=== PATIENT | male | born 1965 | race Hispanic/Latino ===

== ENCOUNTER → 2020-02-29 13:46 | Outpatient (CLI) | payer SELFPAY ==
[2020-03-01 16:07] LABS: COVID19 Sendout NOT DETECTED (Not Detect)
== END ==
PROVIDERS: Visit Provider Registered Nurse
DX: Z01.812 Encounter for preprocedural laboratory examination (principal)
CPT/HCPCS: 87635

== ENCOUNTER → 2020-02-29 14:04 | Outpatient (CLI) | payer OTHER, SELFPAY ==
[2020-02-29 15:33] LABS: Add Manual Diff / Slide Review NO; Basophils Absolute Auto 100 /uL (0-100); Basophils Percent Auto 1.1 % (0-2); Eosinophils Absolute Auto 100 /uL (0-450); Eosinophils Percent Auto 1.7 % (2-4); Hematocrit 38.9 % (41-53); Hemoglobin 13.4 g/dL (13.5-17.5); Lymphocytes Absolute Auto 900 /uL (1100-4500); Lymphocytes Percent Auto 17.4 % (25-40); Mean Corpuscular HGB Conc 34.3 % (30-36); Mean Corpuscular Hemoglobin 32.8 PG (26-34); Mean Corpuscular Volume 95.4 fL (80-100); Monocytes Absolute Auto 400 /uL (0-900); Monocytes Percent Auto 7.3 % (3-14); Neutrophils Absolute Auto 3900 /uL (1500-7000); Neutrophils Percent Auto 72.5 % (50-75); Platelet Count 171 X10^3/uL (150-400); Red Blood Cell Count 4.07 X10^6/uL (4.5-5.9); Red Cell Distribution Width 13.8 % (11.6-14.8); White Blood Cell Count 5.4 X10^3/uL (4.5-11.0)
[2020-02-29 15:36] LABS: BUN Creatinine Ratio 18.8 (6-22); Blood Urea Nitrogen 16 mg/dL (9-20); Calcium 9.2 mg/dL (8.4-10.2); Carbon Dioxide 29 mmol/L (22-32); Chloride 108 mmol/L (98-107); Estimated Glomerular Filt Rate > 60.0 mL/min (>60); Glucose 129 mg/dL (70-100); HEMOLYSIS < 15 (0-50); Potassium 4.7 mmol/L (3.4-5.1); Sodium 140 mmol/L (137-145)
== END ==
PROVIDERS: Referring Provider Orthopaedic Surgery; Visit Provider Orthopaedic Surgery
DX: Z01.818 Encounter for other preprocedural examination (principal); Z01.812 Encounter for preprocedural laboratory examination
CPT/HCPCS: 36415; 80048; 85025; 87635; 93005

== ENCOUNTER 2020-03-03 06:20 | Day surgery (SDC) | payer OTHER, SELFPAY ==
[2020-02-29 08:53] VITALS: BMI 32.8
[2020-03-03] VITALS (24 sets, daily range): BP systolic 126–206; BP diastolic 62–108; PULSE 74–104; RESP 10–20; TEMP 36.3–36.7; O2SAT 84–99; BMI 32.5
--- NOTE | 2020-03-03 07:16 | P.HP_ITS ---
History of Present Illness History of Present Illness Date Patient Seen: 03/03/20 Time Patient Seen: 07:18 Chief complaint: [id number] Cerv fusion *OPB* Narrative: 54-year-old male with neck pain and radiation into the left arm. Insidious onset 2 months ago. Right-hand dominant. Pain better with the arm overhead. Pain could be over 9/10. No relief with the Medrol Dosepak. He has been getting progressively weaker and dropping objects with the left hand. Pain goes down across the trapezius down the biceps to the thumb and index finger predominantly. Some associated numbness same distribution. He does have a history of lupus. Patient History Medical History Arthritis (Acute) Cardiomyopathy (Acute) Chronic low back pain (Acute) Chronic prostatitis (Acute) COPD (chronic obstructive pulmonary disease) (Acute) Cough (Acute) Discoid lupus (Acute) Fibromyalgia (Acute) Former smoker (Acute) GERD (gastroesophageal reflux disease) (Acute) HTN (hypertension) (Acute) Labral tear of left hip joint (Acute) Lumbar disc disease (Acute) Lung cancer (Acute 12/2016) Neuropathy (Acute) Osteoarthropathy (Acute) PAF (paroxysmal atrial fibrillation) (Acute 2008) Pulmonary emphysema (Acute) Retinopathy (Acute) RLS (restless legs syndrome) (Acute) Rosacea (Acute) Spinal stenosis (Acute) Subacute cutaneous lupus erythematosus (Acute) Surgical History History of ankle surgery (Acute 1994) History of bilateral carpal tunnel release (Acute 2017) History of colonoscopy (Acute) History of lobectomy of lung (Acute 12/2016) History of lumbar fusion (Acute 2008) History of surgery (Acute 1985) History of surgery (Acute 2002) History of surgery (Acute 2016) Hx of elbow surgery (Acute 2009) Hx of hand surgery (Acute) Hx of laminectomy (Acute 1981) Hx of LASIK (Acute 2000) Family & Social History Social History: household members spouse Prior Living Arrangements House Safety & Behavioral: Feels Safe in Current Yes Environment Been Physically Hurt or No Threatened By a Person Suicidal Ideation Description None Suicide Plan Description No Plan Tobacco & Substance use: Tobacco type cigarettes Smoking Status Former smoker alcohol intake current alcohol intake frequency a few times a week Substance Use Type does not use Meds Home Medications and Allergies Home Medications Medication Instructions Recorded Confirmed Type azathioprine 150 mg PO DAILY 02/29/20 03/03/20 History carvedilol 25 mg PO BID 02/29/20 03/03/20 History fluticasone propion-salmeterol 1 inh INHALATION BID 02/29/20 03/03/20 History [Advair Diskus] hydrocodone-acetaminophen 1 tab PO Q4-6H PRN MDD 3 tabs daily 02/29/20 03/03/20 History hydroxychloroquine 200 mg PO BID 02/29/20 03/03/20 History lisinopril 5 mg PO BID 02/29/20 03/03/20 History multivitamin 1 cap PO DAILY 02/29/20 03/03/20 History omega 3-crh-ten-fish oil [Fish Oil] 1 cap PO DAILY 02/29/20 03/03/20 History omeprazole 40 mg PO DAILY 02/29/20 03/03/20 History prednisone 5 mg PO DAILY 02/29/20 03/03/20 History tiotropium bromide [Spiriva 1 puff INHALATION BID 02/29/20 03/03/20 History Respimat] furosemide 10 mg PO QAM 03/03/20 03/03/20 History Allergies Allergy/AdvReac Type Severity Reaction Status Date / Time codeine AdvReac Severe Nausea Verified 03/03/20 06:51 gabapentin AdvReac Severe Double Verified 03/03/20 06:51 vision Review of Systems Constitutional Constitutional: Denies chills and Denies fever(s) Respiratory Respiratory: Denies cough Exam Vital Signs (past 8 hours): - 03/03/20 06:55 Temperature 97.7 F Pulse Rate 77 Respiratory Rate 15 Blood Pressure 126/73 Pulse Oximetry 95 Oxygen Delivery Method Room Air Const Orientation: alert and oriented x3 Resp Auscultation: clear to auscultation bilaterally Cardio Rate: regular rate Rhythm: regular rhythm Back/Spine/Pelvis Other: Tender left cervical paraspinals. 5/5 motor both upper extremities except for 4/5 left biceps, wrist extensor, triceps, intrinsics, wrist. Decr eased sensation down the left biceps to the thumb. Positive [place] on the left Objective Imaging Cervical MRI: My impression: From 02/09/2020. C3-4 left paracentral disc herniation mild to moderate central stenosis, moderate right, mild left foraminal stenosis. C4-5 mild central, moderate bilateral foraminal stenosis. C5-6 large left paracentral herniation with cord compression and moderate left foraminal narrowing. C6-7 and C7-T1 are open. Assessment & Plan Assessment & Plan narrative: Cervical disc herniation with myelopathy He has progressive myelopathy with 2 very large disc herniations which are causing cord compression. Due to the progressive nature of his neurologic compromise, we are going to go ahead with surgery. This is a C3-4 and then C5-6 anterior diskectomy an artificial disc replacements. Risks and benefits again have been discussed. All questions have been answered. Consent signed today. COVID-19 COVID-19 status: Negative Result date/Date tested (Pos, Neg/Pending): 02/29/20
[2020-03-03] MEDS: LACTATED RINGERS 1,000 ML 42 ML IV (07:37)
--- NOTE | 2020-03-03 07:38 | P.OP_ITS ---
Operative Date/Time/Diagnoses Date of procedure: 03/03/20 Time of procedure: 09:50 Pre-op diagnosis: Cervical disc herniation with myelopathy Post-op diagnosis: same Procedure & Clinicians Procedure: C3-4, C5-6 anterior cervical diskectomy an artificial disc replacements Use of microscope Same procedure as scheduled: Yes Indications: [age] year old male with intractable pain from stenosis. They had failed conservative management and requested operative intervention. Risks and benefits of surgery were discussed and appropriate consents were obtained. Surgeon: Raymundo Brizuela Panel Monitor: Xochitl Cagle Anesthesia Type: General Operative Notes Closure Type: primary Specimen(s): none sent Prosthetic devices, grafts, tissues, transplants, or devices: Martha Mobi-C Estimated Blood Loss (mL): 5 Procedure in detail: Patient was brought to the operating room and intubated on the table. A time-out was performed. Preoperative antibiotics were given. The neck was prepped and draped in the standard sterile fashion. Using a skin fold, we made a 3 cm oblique incision on the left side. We used Bovie to go through the platysma and then did a standard anterolateral blunt dissection down to the precervical fascia. Fascia was nicked and elevated up. A marker was placed and x-ray was taken for localization. We then subperiosteally elevated up the longus colli muscles. Self-retaining retractors were placed. [place] pins were placed under x-ray guidance to be parallel to the endplates. We then brought in the microscope. A scalpel used to perform an annulotomy. We then used a combination of pituitaries and curettes and Kerrison to perform a complete anterior diskectomy at C3-4. We took down the PLL and used Kerrison to remove any posterior disc material and osteophytes. At the end we could from the nerve hook cephalad caudally and out the foramen and everything was opened. We distracted open with the parallel senior qa automation engineer. We then used the horseshoes for sizing. We then used the trials. We then inserted a 15 x 15 x 5 mm size Mobi-C artificial disc replacement under fluoroscopic guidance for positioning. The traction was released and x-ray was checked again. The retractors were removed down to C5-6. We performed a complete diskectomy using curettes, pituitaries, Kerrisons. We took down the PLL. Removed the posterior osteophytes and then ran the nerve hook until we made sure everything was open. We distracted open with a parallel distractor. We trialed and then inserted 17 x 15 x 5 Mobi-C artificial disc replacement at this level using fluoroscopy for positioning. The traction was released in x-rays were checked again. A The self-retaining retractors and [place] pins were removed and final x-rays taken. The wound was irrigated. There was no bleeding. The carotid was beating nicely. The platysma was closed. The superficial was closed. The skin was closed. A sterile dressing was placed. They were then extubated and brought to recovery room with no complications. Complications: none Post-operative Condition: stable Disposition: PACU Plan for aftercare: Overnight admission. Soft collar for comfort.
[2020-03-03] MEDS: CEFAZOLIN 2 GM/100 ML FROZ.PIGGY IV ×3 (07:45→23:52)
--- NOTE | 2020-03-03 08:16 | SUR.OPER ---
Supine, head on gel donut. Arms padded with gel pads, tucked at sides, towel roll under shoulders. Safety belt at thigh. Legs uncrossed.
[2020-03-03] MEDS: BUPIVACAINE 0.25% W/ EPI 30 ML VIAL INJ (08:22)
[2020-03-03] MEDS: SODIUM CHLORIDE 0.9% 1,000 ML, GENTAMICIN 80 MG IRR (08:22)
[2020-03-03] MEDS: THROMBIN (RECOMBINANT) 5,000 UNIT VIAL 5000 UNIT TOP (08:22)
[2020-03-03] MEDS: fentaNYL 100 MCG/2 ML INJ IV ×6 (09:57→11:06)
[2020-03-03] MEDS: HYDROMORPHONE 2 MG INJ IV ×8 (10:07→11:02)
--- NOTE | 2020-03-03 11:55 | SUR.PHASEI ---
pt co severe discomfort due to lack of ability to urinate post op. stated that this has haped after his last 4 surgeries and he required catheterization until anesthesia wore off. obtained telephone order from anesthesia and pt had relief with clear yellow urine- see I?O for amount
[2020-03-03] MEDS: HYDROMORPHONE 0.5 MG INJ IV ×4 (12:47→23:33)
[2020-03-03] MEDS: KETOROLAC 30 MG/ML VIAL IV ×2 (12:47→19:32)
[2020-03-03] MEDS: LACTATED RINGERS 1,000 ML 125 ML IV ×2 (12:48→20:04)
--- NOTE | 2020-03-03 13:53 | CM.IDA ---
Initial DCP Assessment Note: Patient is a 54 yo male, resident of [facility]. Patient is off the floor today, in the OR for spinal surgery w/Dr Brizuela. PCP: Aparna Fofana Payer: Con/kassandra Reviewed chart, patient plans to DC home post operatively w/assist from family. Further assessment needed after patient returns to the acute care floor and is assessed by therapy team. Following closely. SARIKA Mason Discharge Planning/Care Management CM Discharge Assessment Start: 03/03/20 13:50 Freq: Status: Active Protocol: Document 03/03/20 13:50 TONIO (Rec: 03/03/20 13:53 TONIO [id number]) Discharge Planning Assessment Assigned Land Surveyor SARIKA Medellin DPOA/Assigned Designee Name [place] () Enmanuel (daughter ) Contact Information [place]: [phone] En[place]: [phone] Advance Directives? No History Provided By Patient,Medical Record Prior Living Arrangements House Household Members spouse Type of transporation used prior to Drives own vehicle admit Barriers to Discharge No Discharge Plan Home Transportation Arrangement Family Referrals Initiated None needed
--- NOTE | 2020-03-03 14:25 | PT.IIE ---
Current Diagnoses Disease of spinal cord, unspecified (03/03/20) Other cervical disc displacement, unspecified cervical region (03/03/20) Strain of muscle, fascia and tendon at neck level, subsequent encounter (03/03/20) Surgery Performed Operation Date: 03/03/20 07:45 Actual Procedures p C34 & C56 anterior discectomy & artificial disc replacement - Raymundo Brizuela MD Surgical History (Last Reviewed 03/03/20 @ 07:21 by Raymundo Brizuela MD) History of ankle surgery (Acute 1994) History of bilateral carpal tunnel release (Acute 2017) History of colonoscopy (Acute) History of lobectomy of lung (Acute 12/2016) History of lumbar fusion (Acute 2008) History of surgery (Acute 1985) History of surgery (Acute 2002) History of surgery (Acute 2016) Hx of elbow surgery (Acute 2009) Hx of hand surgery (Acute) Hx of laminectomy (Acute 1981) Hx of LASIK (Acute 2000) Medical History (Last Reviewed 03/03/20 @ 07:21 by Raymundo Brizuela MD) Arthritis (Acute) Cardiomyopathy (Acute) Chronic low back pain (Acute) Chronic prostatitis (Acute) COPD (chronic obstructive pulmonary disease) (Acute) Cough (Acute) Discoid lupus (Acute) Fibromyalgia (Acute) Former smoker (Acute) GERD (gastroesophageal reflux disease) (Acute) HTN (hypertension) (Acute) Labral tear of left hip joint (Acute) Lumbar disc disease (Acute) Lung cancer (Acute 12/2016) Neuropathy (Acute) Osteoarthropathy (Acute) PAF (paroxysmal atrial fibrillation) (Acute 2008) Pulmonary emphysema (Acute) Retinopathy (Acute) RLS (restless legs syndrome) (Acute) Rosacea (Acute) Spinal stenosis (Acute) Subacute cutaneous lupus erythematosus (Acute) Physical Therapy Inpatient Evaluation/Re-Eval M1 PT/OT-IP Prior Functional Status Start: 03/03/20 16:41 Freq: NEEDED Status: Active Protocol: Document 03/03/20 14:25 AB (Rec: 03/03/20 17:01 AB [id number]) Medical Review Prior Functional Status Medical History Reviewed Yes Communication able to make needs known Mobility and Gait pt stated that he is independent with all mobilities and ambulation without AD Social History Household Members spouse Living Arrangements House Number of Floors (Floors) One Floor Number of Stairs To Enter/Railing? 2 steps to enter with L rail Home Environment High Toilet,Walk in Shower, Built-In Shower Seat Home Equipment Front Wheel Walker,Straight Cane,Grab Bars In Shower Additional Social History Comment pt works in sales (appliance) spouse works from home and can assist pt M2 PT-IP Current Condition Start: 03/03/20 16:41 Freq: NEEDED Status: Active Protocol: Document 03/03/20 14:25 AB (Rec: 03/03/20 17:01 [id number]) Physical Therapy Current Condition Current Condition Evaluation Date 03/03/20 Treatment Diagnosis s/p ACDF; difficulty in walking Onset Date 03/03/20 Precautions Cervical Spine Precautions Soft Collar for Comfort,No Heavy Lifting,Log Roll M3 PT-IP Subjective Start: 03/03/20 16:41 Freq: NEEDED Status: Active Protocol: Document 03/03/20 14:25 AB (Rec: 03/03/20 17:01 [id number]) Subjective Physical Therapy Visit Type Type Initial Evaluation Visit Start Time 14:25 Visit Stop Time 15:09 Total Visit Minutes 44 Number of HEALTH AND WELLNESS SALES CONSULTANT Visits 0 Physical Therapy Visit Comments Patient Comments pt agreeable to do PT; nurse stated that pt requesting to use the toilet Therapy Pain Assessment Pain When Pain Assessed At Rest Pain Present Pain Present Pain Reported Location neck Intensity 8 Scale Used Numeric (0 - 10) Pain Management Techniques Modification of Treatment,Re- positioning,Timing of Activity with Medications M4 PT-IP Mobility and Gait Start: 03/03/20 16:41 Freq: NEEDED Status: Active Protocol: Document 03/03/20 14:25 AB (Rec: 03/03/20 17:01 [id number]) PT-Bed Mobility Assessment Rolling Type of Rolling Log Rolling Level of Assist Standby Assistance Supine to Sit Supine to Sit Standby Assistance Sit to Supine Sit to Supine Standby Assistance Scooting Scooting to Edge of Bed Standby Assistance PT-Transfer Assessment Sit to and From Stand Sit to and from Stand Contact Guard Assistance,1 Person Assistance,Use of Upper Extremities Equipment Transfer Assistive Device Gait Belt,Front Wheeled Walker Transfer Ability Level of Assist Contact Guard Assistance,1 Person Assistance Comments Mobility Comments pt sitting on EOB with nurse assisting with use of urinal. PT came in to assist. Pt sat back in bed and c/o lightheadedness and nausea. BP: 175/103. nurse gave pt with nausea medication. educated pt on cervical precautions and log roll bed mobility and completed SBA and cues. pt rested supine in bed. BP checked: 149/92. pt agreed to sit up again. completed supine to sit SBA. pt sat on EOB SBA. completed sit to stand CGA and ambulated towards the mirror CGA. educated pt and spouse regarding soft collar management. spouse was able to assist pt with soft collar. pt c/o lightheadedness and nausea again. completed sit to supine SBA. positioned pt in bed. BP checked: 161/106. nurse provided pt with pain meds and is aware of BP and symptoms. Call light and table placed within reach. Gait Assessment Gait Gait Assistance Required: Contact Guard Assist Distance (Feet) 10 Able to Maintain Weight Bearing Status Yes During Gait Assistive Devices Assistive Device Gait Belt,Front Wheeled Walker Orthotic/Prosthetic Devices or Brace: No Gait Deviations General Gait Pattern Antalgic Factors Limiting Gait Function Factors Limiting Gait Function Decreased Activity Tolerance, Decreased Strength,Limited Range of Motion,Pain,Poor Balance,Poor Safety Awareness Comments Gait Comments pls refer to mobility section for details. pt presents with unsteady gait shuffling gait. pt agreed that he needs a FWW to use at this time. PT-Balance Assessment Sitting Balance and Reactions Static Sitting Balance Ability Good Dynamic Sitting Balance Ability Good Standing Balance and Reactions Static Standing Balance Ability Fair Dynamic Standing Balance Ability Fair Device Used FWW M5 PT-IP Objective Assessments Start: 03/03/20 16:41 Freq: NEEDED Status: Active Protocol: Document 03/03/20 14:25 AB (Rec: 03/03/20 17:01 [id number]) Orientation Orientation/Cognition Level of Alertness Alert Orientation Name,Place,Situation Safety Awareness Understands Safety Issues Memory Description No Deficits Noted Gross Range of Motion Lower Extremity ROM Assessment Within Functional Limits Strength Lower Extremity Strength Assessment Within Functional Limits Coordination Assessment Gross Coordination Gross Coordination WNL Sensation Assessment Sensation Light Touch Impaired Proprioception (Position) Impaired Sensation Description Numbness Comments Sensation Comments pt stated that he has chronic numbness/decrease sensation on B lateral feet and ball of feet due to low back problems M6 PT-IP Treatment Start: 03/03/20 16:41 Freq: NEEDED Status: Active Protocol: Document 03/03/20 14:25 AB (Rec: 03/03/20 17:01 AB [id number]) Physical Therapy Treatment Education Education Provided Precautions,Weight Bearing Status,Post-Op Packet,Safety M7 PT-IP Assessment and Plan Start: 03/03/20 16:41 Freq: NEEDED Status: Active Protocol: Document 03/03/20 14:25 AB (Rec: 03/03/20 17:01 [id number]) PT Summary Assessment and Plan Potential Rehabilitation Potential Good Status of Condition at Evaluation Evolving Summary Impairments Pain,ROM,Strength,Balance, Sensation,Bed Mobility, Transfers,Gait,Activity Tolerance Assessment Summary pt s/p ACDF and just had surgery this morning. pt requiring CGA with mobility using FWW but is unable to tolerate much activity due to c/o nausea and lightheadedness . pt will likely progress mobility during hospital stay. pt plans to go home and spouse will assist him. will conduct caregiver training if needed and will also complete stair climbing training prior to d/c. Goals Bed Mobility Goal Independent Transfer Goal Independent,Front Wheeled Walker Gait Goal Independent,Front Wheel Walker Gait Distance 200 Other Goals improve ambulation without AD ~ 200 ft SBA up/down 2 steps with L rail SBA Days to Meet Goals 3 Frequency of Treatment Frequency Of Treatment Twice a Day Treatment Plan Physical Therapy Treatment Plan Bed Mobility Training,Transfer Training,Gait Training, Therapeutic Exercise,Balance Retraining,Post Op Education, Discharge Planning,Hot or Cold Pack,Neuromuscular Re-ed, Coordination Retraining,Manual Therapy Recommendations To Nursing Amount of Assist Needed 1 Person Assist Discharge Recommendations PT Discharge Recommendations Home with Assistance Transportation Needs at Discharge Private Vehicle
[2020-03-03] MEDS: ONDANSETRON 4 MG/2 ML INJ IV (14:39)
[2020-03-03] MEDS: BENZOCAINE/MENTHOL 1 LOZ PKT 1 EACH PO (16:45)
--- NOTE | 2020-03-03 16:53 | PC.NURSE ---
Addendum entered by Johana Andres R.N. 03/03/20 21:53: Reports nausea with movement. Toradol to manage pain and reglan to promote bowel function. Encouraged pt to remain with clear liquids and proceed slowly. 400 cc emesis. Able to stand with standby assistance and walker to void. Soft collar in place. Returned to bed and resting quietly with eyes closed. Continuous pulse oximeter in place. No signs of distress or discomfort. Addendum entered by Johana Andres R.N. 03/03/20 18:25: Sudden onset nausea with dry heaves following movement of head of bed. Ativan administered as per Dr. Brizuela. Encouraged clear liquids and to proceed slowly. Given coreg and lisinopril @ this hour as per pt request and home regimen for hypertension. Original Note: Pt awake and alert in bed. Spouse is present @ bedside. Pt on 02 @ 2L/min with continuous pulse oximeter in place. Oxygen 94-96%. Clear breath sounds throughout all lung nunez. Pt using I.S. to 3000. Requests foot pumps off as interrupt rest. This was done. Requests soft collar off for rest and this was done while pt in bed. Ice to posterior neck as per pt request for pain achey in nature 04/01. Discussed with pt and pt's spouse action of oral narcotics versus iv narcotics. Pt prefers iv narcotics. States able to manage own airway and secretions. Taking oral fluids without difficulty. Gauze dressing to left anterior neck covered by tegaderm is dry and intact. 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 States able to hold drinking cup with left hand which pt states was unable to do prior to surgery. Denies numbness to arms/hands BL. Encouraged to call for needs and cautioned not to get out of bed without assistance from staff.
[2020-03-03] MEDS: LORazepam 2 MG/ML INJ 0.5 MG IV (17:38)
[2020-03-03] MEDS: carvediloL 25 MG TABLET PO (17:57)
[2020-03-03] MEDS: lisinopriL 5 MG TABLET PO (17:58)
[2020-03-03] MEDS: FLUTICASONE/SALMETEROL 250/50 60 PUFF DISKUS INH (19:27)
[2020-03-03] MEDS: METOCLOPRAMIDE 10 MG/2 ML INJ IV (19:32)
--- NOTE | 2020-03-04 00:39 | PC.NURSE ---
Addendum entered by Xochitl Barrera R.N. 03/04/20 03:45: Initially states pain was 4/10 so brought 1 Vicodin but patient now states pain is at least 6/10 and 5mg won't be enough so medicated with 2 tabs of Vicodin. Able to swallow with minimal soreness. Also provided Cepacol lozenge for comfort. Original Note: Patient seen and assessed at 0000. Is alert and oriented. Breath sounds CTA but reportedly desats on RA so currently on 1.5L/min oxygen per NC with sat of 94%. HRR. Continues to have elevated BP although slightly improved from earlier at 159/87. Denies nausea (nausea/emesis on previous shift). BT present but denies flatus as yet. Voiding per urinal; states he has some initial burning when first urinating. Is able to move self in bed. Is getting up with walker and 1 assist. Dressing to anterior neck is CDI; wearing soft cervical collar. Complained of 6-9/10 pain at shift change and was medicated with IV Dilaudid (not wanting to take po pain meds) and now states pain is 4/10; ice applied for comfort. Has good bilateral UE customer relationship specialist and ROM but states he still feels weak in UE; has some residual numbness in left thumb, otherwise CMS is intact. Complains of sore throat but denies difficulty swallowing. Refusing to wear SCD's despite information re: DVT prevention so reminded to ankle wave. Fall risk score is high (reports recent falls) and bed alarm is activated.
[2020-03-04 03:37] VITALS: BP 147/73; PULSE 87; RESP 18; TEMP 36.7; O2SAT 95
[2020-03-04] MEDS: HYDROCODONE/ACET 5/325 TABLET 2 TAB PO ×2 (03:42→09:01)
[2020-03-04] MEDS: BENZOCAINE/MENTHOL 1 LOZ PKT 1 EACH PO (03:44)
[2020-03-04] MEDS: PANTOPRAZOLE 40 MG TABLET PO (05:51)
[2020-03-04 06:06] VITALS: O2SAT 92
[2020-03-04 07:49] VITALS: BP 171/95; PULSE 76; RESP 16; TEMP 36.6; O2SAT 93
--- NOTE | 2020-03-04 08:59 | OT.IP.EVAL ---
Current Diagnoses Disease of spinal cord, unspecified (03/03/20) Other cervical disc displacement, unspecified cervical region (03/03/20) Strain of muscle, fascia and tendon at neck level, subsequent encounter (03/03/20) Surgery Performed Operation Date: 03/03/20 07:45 Actual Procedures p C34 & C56 anterior discectomy & artificial disc replacement - Raymundo Brizuela MD Past Medical History (Last Reviewed 03/03/20 @ 07:21 by Raymundo Brizuela MD) Arthritis (Acute) Cardiomyopathy (Acute) Chronic low back pain (Acute) Chronic prostatitis (Acute) COPD (chronic obstructive pulmonary disease) (Acute) Cough (Acute) Discoid lupus (Acute) Fibromyalgia (Acute) Former smoker (Acute) GERD (gastroesophageal reflux disease) (Acute) HTN (hypertension) (Acute) Labral tear of left hip joint (Acute) Lumbar disc disease (Acute) Lung cancer (Acute 12/2016) Neuropathy (Acute) Osteoarthropathy (Acute) PAF (paroxysmal atrial fibrillation) (Acute 2008) Pulmonary emphysema (Acute) Retinopathy (Acute) RLS (restless legs syndrome) (Acute) Rosacea (Acute) Spinal stenosis (Acute) Subacute cutaneous lupus erythematosus (Acute) Surgical History (Last Reviewed 03/03/20 @ 07:21 by Raymundo Brizuela MD) History of ankle surgery (Acute 1994) History of bilateral carpal tunnel release (Acute 2017) History of colonoscopy (Acute) History of lobectomy of lung (Acute 12/2016) History of lumbar fusion (Acute 2008) History of surgery (Acute 1985) History of surgery (Acute 2002) History of surgery (Acute 2016) Hx of elbow surgery (Acute 2009) Hx of hand surgery (Acute) Hx of laminectomy (Acute 1981) Hx of LASIK (Acute 2000) Occupational Therapy Inpatient Evaluation/Re-Eval M1 PT/OT-IP Prior Functional Status Start: 03/04/20 09:41 Freq: NEEDED Status: Active Protocol: Document 03/04/20 08:44 [facility] (Rec: 03/04/20 09:59 [facility] [id number]) Medical Review Prior Functional Status Medical History Reviewed Yes Communication able to make needs known Mobility and Gait pt stated that he is independent with all mobilities and ambulation without AD Activities of Daily Living and IADL's Completely independent with all ADl and IAD needs. Social History Household Members spouse Living Arrangements House Number of Floors (Floors) One Floor Number of Stairs To Enter/Railing? 2 steps to enter with L rail Home Environment High Toilet,Walk in Shower, Built-In Shower Seat Home Equipment Front Wheel Walker,Straight Cane,Grab Bars In Shower Additional Social History Comment pt works in sales (appliance) spouse works from home and can assist pt M2 OT-IP Current Condition Start: 03/04/20 09:41 Freq: Status: Active Protocol: Document 03/04/20 08:44 [facility] (Rec: 03/04/20 09:59 [facility] [id number]) Occupational Therapy Current Condition Current Condition Evaluation Date 03/04/20 Treatment Diagnosis Cervical disc herniation with mylepathy, S/P C3-4, C5-6 ant cervical diske. Diagnosis Onset Date 03/03/20 Post Operative Precautions Cervical Spine Precautions Soft Collar for Comfort,No Heavy Lifting,Log Roll M3 OT- IP Subjective and Pain Start: 03/04/20 09:41 Freq: Status: Active Protocol: Document 03/04/20 08:44 [facility] (Rec: 03/04/20 09:59 [facility] [id number]) OT- Subjective Occupational Therapy Visit Type Type Initial Evaluation Visit Start Time 08:44 Visit Stop Time 08:59 Total Visit Minutes 15 Occupational Therapy Visit Comments Patient Comments Pt and present for OT eval. Patient/Caregiver Goals To go home. OT Pain Assessment Pain When Pain Assessed At Rest Pain Present Pain Present Pain Reported Location neck Intensity 7 Scale Used Numeric (0 - 10) M4 OT- IP ADL's Start: 03/04/20 09:41 Freq: Status: Active Protocol: Document 03/04/20 08:44 [facility] (Rec: 03/04/20 09:59 [facility] [id number]) OT [id number] Comments OT Self-Feeding Comments Re-emphasized information to pt on swallowing information sheet after cervical surgery. Make sure to eat when upright, have softer foods, and chew food thoroughly. OT ADL-Grooming General Evaluation Grooming Ability Standby Assistance Comments OT Grooming Comments VC to lean at his hips in order to spit into the sink, otherwise spit into a cup. OT ADL-Oral Care General Eval Oral Care Ability Independent OT ADL-Dressing General Eval Upper Body Dressing Ability Independent Lower Body Dressing Ability Standby Assistance Comments OT Dressing Comments Pt able anibal/doff soft collar independently and educated to use trimming cutter machine to assist with LB dressing needs. In addition pt 's will be able to assist pt for needs. OT ADL-Toileting Comments OT Toileting Comments Not performed, suggested use of urinal, but pt states bathroom close by. OT ADL-Bathing Comments OT Bathing Comments Pt states to shower at home. M5 OT- IP IADL's Start: 03/04/20 09:41 Freq: Status: Active Protocol: Document 03/04/20 08:44 [facility] (Rec: 03/04/20 09:59 [facility] [id number]) OT-Instrumental Activities of Daily Living Home Safety Awareness Awareness of Need for Assistance at Home Good Awareness M6 OT- IP Functional Cognition Start: 03/04/20 09:41 Freq: Status: Active Protocol: Document 03/04/20 08:44 [facility] (Rec: 03/04/20 09:59 [facility] [id number]) Cognitive Factors Limiting Selfcare Function Cognitive Ability Level of Alertness Alert Patient Orientation Name,Place,Situation Attention Span Ability Capable of Focused Attention, Capable of Sustained Attention Ability to Follow Commands Able to Follow One Step Commands Safety Awareness Decreased Ability to Apply Precautions Cognitive Comments Cognitive Assessment Comments Pt forgetting to incorporate cervical precautions and wanting to just come up to sitting in long sitting and therefore emphasized best to do log rolling. Pt's having good awareness for all pt's needs. Pt to sleep in a recliner at home initially. OT- Vision and Hearing OT- Hearing Assessment OT- Hearing Assessment WFL OT- Vision Assessment Visual Acuity Glasses All The Time M7 OT- IP Mobility and Balance Start: 03/04/20 09:41 Freq: Status: Active Protocol: Document 03/04/20 08:44 [facility] (Rec: 03/04/20 09:59 [facility] [id number]) OT- Bed Mobility Assessment Rolling Type of Rolling Roll to Right Level of Assistance Standby Assistance Supine to Sit Supine to Sit Assist Standby Assistance Sit to Supine Sit to Supine Assist Standby Assistance OT-Transfer Assessment Sit to and From Stand Sit to and from Stand Standby Assistance Transfers Transfer Ability Standby Assistance,1 Person Assistance Technique Transfer Destination Chair Transfer Technique Stand Step Pivot Devices Transfer Assistive Devices Front Wheeled Walker Comments Mobility Comments SBA with FWW when up, occasional vc to slow down. Pt needing to go over log rolling again as having trouble to remember and do properly. OT- Balance Assessment Sitting Balance and Reactions Static Sitting Balance Ability Normal Dynamic Sitting Balance Ability Normal Standing Balance and Reactions Static Standing Balance Ability Good M8 OT- IP Objective Assessments Start: 03/04/20 09:41 Freq: Status: Active Protocol: Document 03/04/20 08:44 [facility] (Rec: 03/04/20 09:59 [facility] [id number]) OT Gross Range of Motion Upper Extremity Range of Motion Assessment Within Functional Limits OT Strength Comments Strength Comments LUE weaker than RUE not formally tested. M9 OT- IP Assessment and Plan Start: 03/04/20 09:41 Freq: Status: Active Protocol: Document 03/04/20 08:44 [facility] (Rec: 03/04/20 09:59 [facility] [id number]) OT Summary Assessment and Plan Potential Rehabilitation Potential Excellent Analytic Complexity at Evaluation Low Summary OT Impairments Pain,Functional Mobility, Bathing,Shower Transfers Progress Towards Goals Progressing Toward Goals Assessment Summary Pt low complexity and main barriers are steps, needing reminders for cervical precautions and now needing use of FWW for mobility needs. Pt has a very supportive and able to assist pt for all ADL and functional mobility needs. Goals Grooming Goal Independent Dressing Goal Independent Toileting Goal Independent Bathing Goal Independent Toilet Transfer Goal Independent Shower Transfer Goal Independent Patient/Caregiver Education Goal Demonstrate Post-Op Precautions Days to Meet Goals 1 Frequency of Treatment Frequency Of Treatment Once a Day Treatment Plan OT Treatment Plan Patient/Family Education, Discharge Planning Other Treatment Recommendations and Next Shower if still here. Treatment Focus Discharge Recommendations OT Discharge Recommendations Home with Assistance Transportation Needs at Discharge Private Vehicle
[2020-03-04] MEDS: FISH OIL 1,000 MG CAPSULE 1000 MG PO (09:01)
[2020-03-04] MEDS: predniSONE 5 MG TABLET PO (09:02)
[2020-03-04] MEDS: azaTHIOprine 50 MG TABLET 150 MG PO (09:02)
[2020-03-04] MEDS: DOCUSATE 100 MG CAPSULE PO (09:02)
[2020-03-04] MEDS: MULTIVITAMIN 1 TABLET 1 TAB PO (09:02)
[2020-03-04] MEDS: HYDROXYCHLOROQUINE 200 MG TABLET PO (09:02)
[2020-03-04] MEDS: FUROSEMIDE 20 MG TABLET 10 MG PO (09:03)
[2020-03-04] MEDS: SODIUM CHLORIDE 0.9% FLUSH 10 ML IV (09:03)
[2020-03-04] MEDS: FLUTICASONE/SALMETEROL 250/50 60 PUFF DISKUS INH (09:04)
[2020-03-04] MEDS: TIOTROPIUM BROMIDE 18 MCG INHALER INH (09:04)
[2020-03-04 09:10] VITALS: PULSE 74; RESP 14; O2SAT 95
[2020-03-04 09:11] VITALS: BP 167/101; PULSE 91
[2020-03-04] MEDS: lisinopriL 5 MG TABLET PO (09:11)
[2020-03-04] MEDS: carvediloL 25 MG TABLET PO (09:11)
--- NOTE | 2020-03-04 10:22 | PM.PNPO.1 ---
Subjective Subjective Date Patient Seen: 03/04/20 Time Patient Seen: 10:22 Interval history: He is doing much better. Pain is about 4, nausea is under better better control. Arms feel great. Feels rough in the back of the throat but able to swallow. Exam Vital Signs (past 8 hours): - 03/04/20 03:37 03/04/20 06:06 03/04/20 07:49 Temperature 98.1 F 98 F Pulse Rate 87 76 Respiratory Rate 18 16 Blood Pressure 147/73 H 171/95 H Pulse Oximetry 95 92 93 03/04/20 09:10 03/04/20 09:11 Temperature Pulse Rate 74 91 H Respiratory Rate 14 Blood Pressure 167/101 H Pulse Oximetry 95 Oxygen Delivery Method Room Air Oxygen Flow Rate 0 Const Orientation: alert and oriented x3 Back/Spine/Pelvis Other: CDI. 5/5 motor both upper extremities Assessment & Plan Post-op Postoperative Procedures: Procedures Operation Date: 03/03/20 07:45 Actual Procedures Side Surgeon p C34 & C56 anterior discectomy & artificial disc replacement Raymundo Brizuela MD he is doing great. Plan to discharge home today.
--- NOTE | 2020-03-04 10:38 | SLP.IPNOTE ---
Swallow and voice screening administered. Pt c/o pain with swallow, increasing from 2/10 without swallow to 8/10 during swallow. Voice was perceived by AUTO PARTS MANAGER, pt and spouse to be WNL. No overt s/sx of aspiration was observed or reported by pt, although the pt did report daily coughing with saliva and oral intake for ~6 mos prior to this surgery. At this time, swallow function appears normal for <24 hrs s/p ACDF surgery. The pt and his were educated orally and in writing RE potential effects of ACDF surgery on swallow and voice function. The pt stated he had a referral in place with ENT, which he planned to pursue and which I encouraged. They were encouraged to seek referral to Speech Pathologist and/or MBS procedure if dysphagia symptoms return once surgical swelling has subsided. They were in agreement with this plan and all questions were answered.
[2020-03-04 11:18] VITALS: BP 150/98; PULSE 83; RESP 16; O2SAT 96
--- NOTE | 2020-03-04 11:19 | PC.NURSE ---
Discharge note: Patient awake, alert, and peasant. On RA, sat 96%, performing IS as instructed. Soft cervical collar in place, 4 x 4 gauze dressing, CDI, secured with tegaderm. CMS intact, minimal numbness to right thumb, much improved from pre op. Tolerating regular diet, no nausea. Voiding, QS. Discharge instructions given to patient, discussed importance of F/U in 1.5 weeks, weight limitations, dressing care, and s/sx of infection. Both patient and verbalized understanding of instructions. Discharge home via private vehicle in stable condition, accompanied by .
--- NOTE | 2020-03-04 11:42 | CM.DPC ---
DCP Discharge home Per Ortho MD, pt is medically stable to d/c home today after final PT/OT works with pt and spouse for CG training. Per PT, will work with pt and spouse today on stairs and recommending safe d/c home with spouse assist and outpt PT. Plan: Patient to d/c home today via spouse POV and outpt PT and no SW needs at this time. SARIKA Perez
== END 2020-03-04 11:30 | disposition home or self-care (01) ==
LOC: OR 06:24 → AC 06:24
PROVIDERS: PCP Family Medicine; Referring Provider Orthopaedic Surgery; Visit Provider Orthopaedic Surgery
PROC: (CPT 22856; principal; 2020-03-03 07:45)
DX: M50.01 Cervical disc disorder with myelopathy, high cervical region (principal); M48.02 Spinal stenosis, cervical region; S16.1XXA Strain of muscle, fascia and tendon at neck level, initial encounter; M32.9 Systemic lupus erythematosus, unspecified; J44.9 Chronic obstructive pulmonary disease, unspecified; M79.7 Fibromyalgia
CPT/HCPCS: 22856; 22858; 94640; 94760; 97162; 97165; 97530; C1776; A9270; J0690; J1100; J1170; J1885; J2060; J2250; J2405; J2704; J2765; J3010; J7500

== ENCOUNTER 2020-03-07 00:21 | Emergency (ER) | payer OTHER, SELFPAY ==
[2020-03-03 12:29] VITALS: BMI 32.5
[2020-03-07 00:27] VITALS: BP 196/124; PULSE 125; RESP 30; TEMP 36.7; O2SAT 100
--- NOTE | 2020-03-07 00:37 | ED_ITS ---
HPI - Back Pain/Injury General Chief Complaint: Back Pain/Injury Stated Complaint: neck shoulder pain post surgery Time Seen by Provider: 03/07/20 00:36 Source: patient Mode of arrival: Ambulatory Limitations: no limitations History of Present Illness HPI Narrative: The patient is 4 days status post C 3-4 and see 5-6 diskectomy with artificial disc replacement. He developed right posterior neck pain 2 days ago. He had significant left hand weakness that improved immediately, he has had a little relapse of weakness now, but not as severe as prior to the surgery. He has no dysphagia or dyspnea. He does not sense significant neck swelling. He has had no fever chills. He has had no fall or evidence of injury. He is ambulatory without lower extremity weakness. There has been no drainage from the operative site. Related Data Home Medications Medication Instructions Recorded Confirmed Spiriva Respimat 1 puff INHALATION BID 02/29/20 03/03/20 azathioprine 150 mg PO DAILY 02/29/20 03/03/20 carvedilol 25 mg PO BID 02/29/20 03/03/20 fluticasone propion-salmeterol 1 inh INHALATION BID 02/29/20 03/03/20 [Advair Diskus] hydroxychloroquine 200 mg PO BID 02/29/20 03/03/20 lisinopril 5 mg PO BID 02/29/20 03/03/20 multivitamin 1 cap PO DAILY 02/29/20 03/03/20 omega 2-hvy-cxs-fish oil [Fish Oil] 1 cap PO DAILY 02/29/20 03/03/20 omeprazole 40 mg PO DAILY 02/29/20 03/03/20 prednisone 5 mg PO DAILY 02/29/20 03/03/20 furosemide 10 mg PO QAM 03/03/20 03/03/20 Previous Rx's Medication Instructions Recorded docusate sodium [DOK] 100 mg PO BID PRN #30 cap 03/04/20 hydrocodone-acetaminophen 1 tab PO Q4HR PRN #20 tab 03/04/20 hydroxyzine pamoate 25 mg PO Q4HR PRN #15 cap 03/04/20 ondansetron HCl [Zofran] 4 mg PO Q4HR PRN #15 tab 03/04/20 Allergies Allergy/AdvReac Type Severity Reaction Status Date / Time codeine AdvReac Severe Nausea Verified 03/03/20 06:51 gabapentin AdvReac Severe Double Verified 03/03/20 06:51 vision Review of Systems Review of Systems ROS Unobtainable: All systems reviewed & are unremarkable except as noted in HPI and below Constitutional Constitutional: Denies chills, Denies fever(s) and Denies weakness Eyes Eyes: Denies change in vision ENT Ears, Nose, Mouth, and Throat: Denies odynophagia Cardiovascular Cardiovascular: Denies chest pain and Denies dyspnea Respiratory Respiratory: Denies cough and Denies dyspnea Gastrointestinal Gastrointestinal: Denies abdominal pain and Denies odynophagia Musculoskeletal Comments: Left arm weakness, see HPI. Integumentary/Breasts Skin/Breast: Denies pruritus, Denies erythema, Denies rash and Reports wounds (Left anterior neck surgical site.) Neurologic Neurologic: Denies weakness Patient History Medical History Arthritis (Acute) Cardiomyopathy (Acute) Chronic low back pain (Acute) Chronic prostatitis (Acute) COPD (chronic obstructive pulmonary disease) (Acute) Cough (Acute) Discoid lupus (Acute) Fibromyalgia (Acute) Former smoker (Acute) GERD (gastroesophageal reflux disease) (Acute) HTN (hypertension) (Acute) Labral tear of left hip joint (Acute) Lumbar disc disease (Acute) Lung cancer (Acute 12/2016) Neuropathy (Acute) Osteoarthropathy (Acute) PAF (paroxysmal atrial fibrillation) (Acute 2008) Pulmonary emphysema (Acute) Retinopathy (Acute) RLS (restless legs syndrome) (Acute) Rosacea (Acute) Spinal stenosis (Acute) Subacute cutaneous lupus erythematosus (Acute) Surgical History History of ankle surgery (Acute 1994) History of bilateral carpal tunnel release (Acute 2017) History of colonoscopy (Acute) History of lobectomy of lung (Acute 12/2016) History of lumbar fusion (Acute 2008) History of surgery (Acute 1985) History of surgery (Acute 2002) History of surgery (Acute 2016) Hx of elbow surgery (Acute 2009) Hx of hand surgery (Acute) Hx of laminectomy (Acute 1981) Hx of LASIK (Acute 2000) Social History household members: spouse Smoking Status: Former smoker alcohol intake: current Smoking Status: Former smoker alcohol intake frequency: a few times a week Substance Use Type: does not use Exam Initial Vital Signs Initial Vital Signs: Vital Signs Temperature 98.1 F 03/07/20 00:27 Pulse Rate 125 H 03/07/20 00:27 Respiratory Rate 30 H 03/07/20 00:27 Blood Pressure 196/124 H 03/07/20 00:27 Pulse Oximetry 100 03/07/20 00:27 Const General: cooperative and well developed Nutritional Appearance: well nourished [facility] Head: normocephalic and atraumatic Neck Neck: trachea midline, No lymphadenopathy and No JVD Other: Left anterior neck surgical site with localized contusion, no erythema, no swelling or drainage. Right posterior neck with tenderness to palpation, but no palpable abnormalities. Range of motion is normal. Resp Effort & Inspection: normal respiratory effort and able to speak in complete sentences Auscultation: clear to auscultation bilaterally, no rales, no rhonchi and no wheezes Cardio Rate: regular rate Rhythm: regular rhythm Pulses: normal peripheral pulses Neuro General: patient alert, patient oriented x3, gait normal and other (Slight left hand weakness.) Speech: speech normal Extrem Other: Full range of motion. Slight left hand weakness with product responsibility liaison. Course Course Course Narrative: The patient has obtain relief with IV Dilaudid and IV Toradol. He has no fever, is WBC count is normal. CT reveals soft tissue edema and fluid collection consistent with postop changes. He has hydrocodone at home. He is advised to follow-up with his surgeon tomorrow morning. Orders Ordered: ED Orders 03/07/20 00:44 CT cervical spine wo con Stat 03/07/20 00:51 Complete Blood Count AUTO DIFF Stat Comprehensive Metabolic Panel Stat Sodium Chloride (Normal Saline 0.9%) 1,000 mls @ 150 mls/hr IV CONT SHANI Last Admin: 03/07/20 00:59 Dose: 150 mls/hr Documented by: JUSTYNA Discontinued Medications Hydromorphone HCl (Dilaudid) 1 mg IV NOW ONE Stop: 03/07/20 00:44 Last Admin: 03/07/20 00:59 Dose: 1 mg Documented by: JUSTYNA Ketorolac Tromethamine (Toradol) 30 mg IV NOW ONE Stop: 03/07/20 01:54 Last Admin: 03/07/20 02:05 Dose: 30 mg Documented by: NEVA Vital Signs Vital signs: Vital Signs - 8 hr 03/07/20 00:27 03/07/20 01:10 03/07/20 02:07 Temperature 98.1 F Pulse Rate 125 H 108 H 90 Respiratory Rate 30 H 15 18 Blood Pressure 196/124 H Blood Pressure [Right Arm] 154/69 H 164/89 H Pulse Oximetry 100 94 99 MDM - Back Pain/Injury Lab Data Result diagrams: 03/07/20 00:51 03/07/20 00:51 Labs: Lab Results 03/07/20 03/07/20 Range/Units 00:51 00:51 WBC 8.6 (4.5-11.0) X10^3/uL RBC 4.43 L (4.5-5.9) X10^6/uL Hgb 14.4 (13.5-17.5) g/dL Hct 41.7 (41-53) % MCV 94.2 (80-100) fL MCH 32.5 (26-34) PG MCHC 34.5 (30-36) % RDW 13.5 (11.6-14.8) % Plt Count 199 (150-400) X10^3/uL Neut % (Auto) 67.0 (50-75) % Lymph % (Auto) 22.6 L (25-40) % [place] % (Auto) 6.6 (3-14) % Eos % (Auto) 2.6 (2-4) % Baso % (Auto) 1.2 (0-2) % Neut # (Auto) 5800 (5534-4183) /uL Lymph # (Auto) 1900 (9464-1442) /uL [place] # (Auto) 600 (0-900) /uL Eos # (Auto) 200 (0-450) /uL Baso # (Auto) 100 (0-100) /uL Sodium 136 L (137-145) mmol/L Potassium 4.8 (3.4-5.1) mmol/L Chloride 103 (98-107) mmol/L Carbon Dioxide 29 (22-32) mmol/L BUN 14 (9-20) mg/dL Creatinine 0.82 (0.66-1.25) mg/dL Estimated GFR > 60.0 (>60) mL/min BUN/Creatinine Ratio 17.1 (6-22) Glucose 118 H (70-100) mg/dL Calcium 9.2 (8.4-10.2) mg/dL Total Bilirubin 0.5 (0.2-1.3) mg/dL AST 35 (17-59) IU/L ALT 15 (<50) IU/L Alkaline Phosphatase 61 (38-126) U/L Total Protein 7.5 (6.3-8.2) g/dL Albumin 4.1 (3.5-5.0) g/dL Globulin 3.4 (1.7-4.1) g/dL Albumin/Globulin Ratio 1.2 (1.0-2.8) Imaging Data C-spine CT:: Radiologist's Impression: Postop changes from the recent C3-4 and C5-6 surgery. Soft tissue edema. Postsurgical changes. Please review the full CT report. Discharge Plan Departure Patient Disposition: Home Clinical Impression: Post-op pain, Cervical vertebral fusion Instructions: DI for Neck Pain Activity Restrictions/Additional Instructions: Ice packs to the posterior neck as needed. [place] every 4 hours as needed for pain. Contact her surgeon, Dr. Brizuela tomorrow for further guidance. Return to ER as necessary. Prescriptions: No Action fluticasone propion-salmeterol [Advair Diskus] 250-50 mcg/dose Blister With Device 1 inh INHALATION BID RF: 0 carvedilol 25 mg Tablet 25 mg PO BID RF: 0 prednisone 5 mg Tablet 5 mg PO DAILY RF: 0 azathioprine 50 mg Tablet 150 mg PO DAILY RF: 0 omeprazole 40 mg Capsule,Delayed Release(Dr/Ec) 40 mg PO DAILY RF: 0 lisinopril 5 mg Tablet 5 mg PO BID RF: 0 hydroxychloroquine 200 mg Tablet 200 mg PO BID RF: 0 multivitamin Capsule 1 cap PO DAILY RF: 0 omega 0-fai-wds-fish oil [Fish Oil] 1,000 mg (120 mg-180 mg) Capsule 1 cap PO DAILY RF: 0 Spiriva Respimat 2.5 mcg/actuation Mist 1 puff INHALATION BID RF: 0 furosemide 20 mg Tablet 10 mg PO QAM RF: 0 docusate sodium [DOK] 100 mg Capsule 100 mg PO BID PRN (Reason: constipation) Qty: 30 RF: 0 hydrocodone-acetaminophen 5-325 mg Tablet 1 tab PO Q4HR PRN (Reason: Pain, Moderate (4-6)) Qty: 20 RF: 0 hydroxyzine pamoate 25 mg Capsule 25 mg PO Q4HR PRN (Reason: spasms) Qty: 15 RF: 0 ondansetron HCl [Zofran] 4 mg tablet 4 mg PO Q4HR PRN (Reason: nausea and vomiting) Qty: 15 RF: 0 Referrals: Aparna Fofana MD [Primary Care Provider] -
--- NOTE | 2020-03-07 00:44 | DI.CT.S_ITS ---
PROCEDURE: CT CERVICAL SPINE WO CON INDICATIONS: Posterior neck pain status post cervical fusion. TECHNIQUE: Noncontrast 3 mm thick sections acquired from the skull base to the T4 level. Sagittal and coronal reformats were then constructed. For radiation dose reduction, the following was used: automated exposure control, adjustment of mA and/or kV according to patient size. [facility] CERVICAL [facility] WITHOUT CONTRAST, 02/09/2020, 10:21. FINDINGS: Image quality: Excellent. Bones: Postoperative changes compatible with C3-C4 and C5-C6 prosthetic disc placement. No fractures or dislocations. Visualized superior ribs are intact. Soft tissues: Prevertebral soft tissues are thickened along the upper and mid cervical spine. No gas identified in the thickened prevertebral soft tissues. No paravertebral hematomas. No apical pneumothoraces. IMPRESSION: 1. No fracture. No acute osseous lesion. If symptoms and/or clinical suspicion for pathology persists, evaluation with MRI may be helpful for further assessment. 2. Upper and mid cervical spine prevertebral soft tissue thickening which could represent acute soft tissue injury, postsurgical change or infection/developing abscess. Recommend correlation with clinical data and MRI of the cervical spine if clinically indicated. Dictated by: Shefali Nguyen MD, PhD on 03/07/2020 at 7:34 Approved by: Shefali Nguyen MD, PhD on 03/07/2020 at 7:39
[2020-03-07] MEDS: HYDROMORPHONE 1 MG INJ IV (00:59)
[2020-03-07] MEDS: SODIUM CHLORIDE 0.9% 1,000 ML 150 ML IV (00:59)
[2020-03-07 01:02] LABS: Add Manual Diff / Slide Review NO; Basophils Absolute Auto 100 /uL (0-100); Basophils Percent Auto 1.2 % (0-2); Eosinophils Absolute Auto 200 /uL (0-450); Eosinophils Percent Auto 2.6 % (2-4); Hematocrit 41.7 % (41-53); Hemoglobin 14.4 g/dL (13.5-17.5); Lymphocytes Absolute Auto 1900 /uL (1100-4500); Lymphocytes Percent Auto 22.6 % (25-40); Mean Corpuscular HGB Conc 34.5 % (30-36); Mean Corpuscular Hemoglobin 32.5 PG (26-34); Mean Corpuscular Volume 94.2 fL (80-100); Monocytes Absolute Auto 600 /uL (0-900); Monocytes Percent Auto 6.6 % (3-14); Neutrophils Absolute Auto 5800 /uL (1500-7000); Platelet Count 199 X10^3/uL (150-400); Red Blood Cell Count 4.43 X10^6/uL (4.5-5.9); Red Cell Distribution Width 13.5 % (11.6-14.8); White Blood Cell Count 8.6 X10^3/uL (4.5-11.0)
[2020-03-07 01:10] VITALS: BP 154/69; PULSE 108; RESP 15; O2SAT 94
[2020-03-07 01:12] LABS: Alanine Aminotransferase 15 IU/L (<50); Albumin 4.1 g/dL (3.5-5.0); Albumin Globulin Ratio 1.2 (1.0-2.8); Alkaline Phosphatase 61 U/L (38-126); Aspartate Aminotransferase 35 IU/L (17-59); BUN Creatinine Ratio 17.1 (6-22); Bilirubin Total 0.5 mg/dL (0.2-1.3); Blood Urea Nitrogen 14 mg/dL (9-20); Calcium 9.2 mg/dL (8.4-10.2); Carbon Dioxide 29 mmol/L (22-32); Chloride 103 mmol/L (98-107); Estimated Glomerular Filt Rate > 60.0 mL/min (>60); Globulin 3.4 g/dL (1.7-4.1); Glucose 118 mg/dL (70-100); HEMOLYSIS 111 (0-50); Sodium 136 mmol/L (137-145); Total Protein 7.5 g/dL (6.3-8.2)
[2020-03-07 01:13] LABS: Potassium 4.8 mmol/L (3.4-5.1)
[2020-03-07] MEDS: KETOROLAC 60 MG/2 ML VIAL 30 MG IV (02:05)
[2020-03-07 02:07] VITALS: BP 164/89; PULSE 90; RESP 18; O2SAT 99
[2020-03-07 02:51] VITALS: BP 158/74; PULSE 91; RESP 16; O2SAT 98
== END 2020-03-07 03:01 | disposition home or self-care (01) ==
PROVIDERS: Emergency Provider Emergency Medicine; PCP Family Medicine
DX: G89.18 Other acute postprocedural pain (principal); M43.22 Fusion of spine, cervical region
CPT/HCPCS: 72125; 80053; 85025; 96361; 96374; 96375; 99283; 99284; J1170; J1885

== ENCOUNTER → 2020-03-15 08:20 | Outpatient (CLI) | payer OTHER, SELFPAY ==
[2020-03-03 12:29] VITALS: BMI 32.5
[2020-03-15 11:47] LABS: COVID19 -Nasal RAPID Negative (Negative)
== END ==
PROVIDERS: PCP Family Medicine; Visit Provider Nurse Practitioner
DX: Z01.812 Encounter for preprocedural laboratory examination (principal)
CPT/HCPCS: 87635

== ENCOUNTER 2020-03-16 15:27 | Inpatient (IN) | payer OTHER, SELFPAY ==
[2020-03-03 12:29] VITALS: BMI 32.5
[2020-03-16] VITALS (15 sets, daily range): BP systolic 111–175; BP diastolic 57–91; PULSE 70–107; RESP 6–17; TEMP 35.6–36.8; O2SAT 89–96; BMI 37.0
--- NOTE | 2020-03-16 | DI.RAD.S_ITS ---
PROCEDURE: XR CERVICAL SPINE 2V OR 3V INDICATIONS: INTER-OPERATIVE FILMS , TAKEN ON 03/03/2020 TECHNIQUE: AP and lateral operative view(s) of the cervical spine were acquired. COMPARISON: None. FINDINGS: Operative images dated 03/03/20 are submitted for interpretation on 03/16/20. This documents placement of disc prostheses at the level of C3-C4 and C5-C6. IMPRESSION: Operative imaging utilized for surgical surgery. Dictated by: Ashok Cyr M.D. on 03/16/2020 at 20:26 Approved by: Ashok Cyr M.D. on 03/16/2020 at 20:27
--- NOTE | 2020-03-16 | DI.RAD.S_ITS ---
PROCEDURE: XR CERVICAL SPINE 2V OR 3V INDICATIONS: ACDF C4-5, REMOVAL OF C5-6 TECHNIQUE: AP and lateral operative view(s) of the cervical spine were acquired. COMPARISON: None. FINDINGS: Operative images demonstrate ACDF at C4-C6 and disc prosthesis placement at C3-C4. IMPRESSION: Operative imaging utilized during cervical spine surgery. Dictated by: Ashok Cyr M.D. on 03/16/2020 at 19:28 Approved by: Ashok Cyr M.D. on 03/16/2020 at 19:29
[2020-03-16] MEDS: LACTATED RINGERS 1,000 ML 42 ML IV ×2 (16:17→19:34)
--- NOTE | 2020-03-16 16:59 | PM.PREOP ---
Pre-operative Note COVID-19 COVID-19 status: Negative Result date/Date tested (Pos, Neg/Pending): 03/15/20 Interval Note History & Physical reviewed/Exam performed by Physician: Yes Changes to H&P: No
[2020-03-16] MEDS: CEFAZOLIN 2 GM/100 ML FROZ.PIGGY IV ×2 (17:09→22:29)
--- NOTE | 2020-03-16 17:51 | SUR.OPER ---
Supine, head on gel donut. Arms padded with gel pads, tucked at sides, towel roll under shoulders. Safety belt at thigh. Legs uncrossed.
[2020-03-16] MEDS: THROMBIN (RECOMBINANT) 5,000 UNIT VIAL 5000 UNIT TOP (18:02)
[2020-03-16] MEDS: SODIUM CHLORIDE 0.9% 1,000 ML, GENTAMICIN 80 MG IRR (18:03)
[2020-03-16] MEDS: BUPIVACAINE 0.25% W/ EPI (PF) 10 ML VIAL 60 ML INJ (18:03)
[2020-03-16] MEDS: FOSAPREPITANT 150 MG in SODIUM CHLORIDE 0.9% 150 ML 300 ML IV (18:27)
--- NOTE | 2020-03-16 18:44 | P.OP_ITS ---
Operative Date/Time/Diagnoses Date of procedure: 03/16/20 Time of procedure: 18:45 Pre-op diagnosis: Cervical stenosis with radiculopathy Failure of cervical artificial disc replacement Post-op diagnosis: same Procedure & Clinicians Procedure: C4-5 ACDF with cage C5-6 removal of artificial disc replacement C5-6 ACDF with cage Iliac crest bone graft aspirate Use of microscope Same procedure as scheduled: Yes Indications: 54-year-old male who had 2 cervical disc replacements 2 weeks ago. The lower disc replacement failed and shifted and impacted up into the endplate. He was having severe pain as well as new neurologic pain from the level above. Is felt that he needed revision surgery and would also take care of the level above. Risks and benefits of surgery discussed appropriate consents obtained. Surgeon: Raymundo Brizuela Biomedical Equipment Tech: Wendy Herrera Anesthesia Type: General Operative Notes Findings: None Closure Type: primary Specimen(s): none sent Prosthetic devices, grafts, tissues, transplants, or devices: Martha MARV-C 15.5x14.5mm Estimated Blood Loss (mL): 5 Procedure in detail: Patient was brought to the operating room and intubated on the table. A time-out was performed. Preoperative antibiotics were given. The neck was prepped and draped in the standard sterile fashion. Using a skin fold, we made a 3 cm oblique incision on the left side. We dissected through the scar tissue in a standard anterolateral approach down to the precervical fascia. A marker was placed and x-ray was taken for localization. We then subperiosteally elevated up the longus colli muscles around C4-5 and see again at C5-6. Self-retaining retractors were placed. Vancouver pins were placed at C4-5. We then brought in the microscope. A scalpel used to perform an annulotomy. We then used a combination of pituitaries and curettes and Kerrison to perform a complete anterior diskectomy at C4-5. We used the bur to take down the posterior osteophytes. We took down the PLL and used Kerrison to remove any posterior disc material and osteophytes. At the end we could from the nerve hook cephalad caudally and out the foramen and everything was opened. A small stab incision was made over the left anterior iliac crest. A [employer] needle was advanced into the pelvis and 2 mL of bone marrow was aspirated. We then used the trials. We then packed a 15.5 x 14 x 5 mm MARV-C cage with Primagen bone graft and the iliac crest harvest. The cage was placed under fluoroscopic guidance. We then placed our two locking plates. The self- retaining retractors and Vancouver pins were removed and we moved down to the C5-6 level. We distracted across the Vancouver pins and easily removed the old disc replacement at C5-6. We then used the curette and nerve hook to clear the scar tissue down to the dura again. We ran the nerve hook cephalad caudally and out the neural foramen and it was still open. We used the bur to decorticate the endplates. We then trialed and placed another 15.5 x 14 x 5 mm cage with bone graft into the disc space at C5-6 for the ACDF at this level. We then placed our locking plates. The retractors removed and final x-rays taken. The wound was irrigated. There was no bleeding. The carotid was beating nicely. The platysma was closed. The superficial was closed. The skin was closed. A sterile dressing was placed. They were then extubated and brought to recovery room with no complications. Complications: none Post-operative Condition: stable Disposition: PACU Plan for aftercare: Inpatient. Up with therapy. Plan to discharge tomorrow
[2020-03-16] MEDS: fentaNYL 100 MCG/2 ML INJ IV ×2 (19:10→19:24)
[2020-03-16] MEDS: HYDROMORPHONE 2 MG INJ IV ×6 (19:18→19:48)
[2020-03-16] MEDS: hydrOXYzine 50 MG/ML INJ 25 MG IM (19:20)
[2020-03-16] MEDS: OXYCODONE/ACETAMINOPHEN 5/325 TABLET 1 TAB PO ×2 (19:30→20:18)
--- NOTE | 2020-03-16 20:36 | SUR.PHASEI ---
Patient taken to room 218 with all belongings. Left in stable condition with receiving RN at bedside.
[2020-03-16] MEDS: HYDROMORPHONE 0.5 MG INJ IV (21:51)
[2020-03-16] MEDS: CELECOXIB 200 MG CAPSULE 400 MG PO (22:21)
[2020-03-16] MEDS: SENNOSIDES 8.6 MG TABLET 17.2 MG PO (22:22)
[2020-03-16] MEDS: DOCUSATE 100 MG CAPSULE PO (22:22)
[2020-03-16] MEDS: carvediloL 25 MG TABLET PO (22:22)
[2020-03-16] MEDS: diazePAM 2 MG TABLET PO (22:22)
[2020-03-16] MEDS: lisinopriL 5 MG TABLET PO (22:22)
[2020-03-16] MEDS: HYDROXYCHLOROQUINE 200 MG TABLET PO (22:23)
[2020-03-16] MEDS: LACTATED RINGERS 1,000 ML 125 ML IV (22:28)
[2020-03-17] MEDS: DEXAMETHASONE 4 MG/ML VIAL IV ×2 (00:10→05:27)
--- NOTE | 2020-03-17 00:10 | PC.NURSE ---
Admission @ 2029. Received from PACU without prior notice, bedside report given. A&Ox3. C/o pain 05/02. Tachycardic, otherwise VSS. Soft cervical collar in place. Pt able to log roll, stand with walker, void in urinal.
[2020-03-17] MEDS: HYDROMORPHONE 0.5 MG INJ IV ×2 (00:29→03:42)
[2020-03-17 03:38] VITALS: BP 128/80; PULSE 101; RESP 16; TEMP 36.2; O2SAT 95
[2020-03-17] MEDS: CEFAZOLIN 2 GM/100 ML FROZ.PIGGY IV (05:27)
[2020-03-17] MEDS: HYDROCODONE/ACET 5/325 TABLET 2 TAB PO ×2 (05:27→09:22)
--- NOTE | 2020-03-17 07:46 | PM.PNPO.1 ---
Subjective Subjective Date Patient Seen: 03/17/20 Time Patient Seen: 07:46 Interval history: He is doing much better. No nausea. Still some tingling over the shoulder and left thumb and index but much better than before. Exam Vital Signs (past 8 hours): - 03/17/20 03:38 Temperature 97.1 F L Pulse Rate 101 H Respiratory Rate 16 Blood Pressure 128/80 Pulse Oximetry 95 Oxygen Delivery Method Nasal Cannula Oxygen Flow Rate 2 Const Orientation: alert and oriented x3 Back/Spine/Pelvis Other: CDI. 5/5 motor both upper extremities except for 4/5 left deltoid Assessment & Plan Post-op Postoperative Procedures: Procedures Operation Date: 03/16/20 17:00 Actual Procedures Side Surgeon p removal of C56 artifical disc replacement and conversion to C56 fusion. C45 anterior cervical discectomy and fusion w. bone graft Raymundo Brizuela MD he is doing very well. Plan to discharge home
[2020-03-17 07:50] VITALS: BP 149/87; PULSE 97; RESP 17; TEMP 36.6; O2SAT 91
--- NOTE | 2020-03-17 09:11 | OT.IP.EVAL ---
Current Diagnoses Other cervical disc displacement, unspecified cervical region (03/16/20) Strain of muscle, fascia and tendon at neck level, subsequent encounter (03/16/20) Breakdown (mechanical) of internal fixation device of vertebrae, initial encounter (03/16/20) Surgery Performed Operation Date: 03/16/20 17:00 Actual Procedures p removal of C56 artifical disc replacement and conversion to C56 fusion. C45 anterior cervical discectomy and fusion w. bone graft - Raymundo Brizuela MD Past Medical History (Last Reviewed 03/07/20 @ 00:48 by Nghia Jackson MD) Arthritis (Acute) Cardiomyopathy (Acute) Chronic low back pain (Acute) Chronic prostatitis (Acute) COPD (chronic obstructive pulmonary disease) (Acute) Cough (Acute) Discoid lupus (Acute) Fibromyalgia (Acute) Former smoker (Acute) GERD (gastroesophageal reflux disease) (Acute) HTN (hypertension) (Acute) Labral tear of left hip joint (Acute) Lumbar disc disease (Acute) Lung cancer (Acute 12/2016) Neuropathy (Acute) Osteoarthropathy (Acute) PAF (paroxysmal atrial fibrillation) (Acute 2008) Pulmonary emphysema (Acute) Retinopathy (Acute) RLS (restless legs syndrome) (Acute) Rosacea (Acute) Spinal stenosis (Acute) Subacute cutaneous lupus erythematosus (Acute) Surgical History (Last Reviewed 03/07/20 @ 00:49 by Nghia Jackson MD) History of ankle surgery (Acute 1994) History of bilateral carpal tunnel release (Acute 2017) History of colonoscopy (Acute) History of lobectomy of lung (Acute 12/2016) History of lumbar fusion (Acute 2008) History of surgery (Acute 1985) History of surgery (Acute 2002) History of surgery (Acute 2016) Hx of elbow surgery (Acute 2009) Hx of hand surgery (Acute) Hx of laminectomy (Acute 1981) Hx of LASIK (Acute 2000) Occupational Therapy Inpatient Evaluation/Re-Eval M1 PT/OT-IP Prior Functional Status Start: 03/17/20 09:15 Freq: NEEDED Status: Active Protocol: Document 03/17/20 09:15 [facility] (Rec: 03/17/20 09:35 [facility] [id number]) Medical Review Prior Functional Status Medical History Reviewed Yes Communication Independent Mobility and Gait Independent Activities of Daily Living and IADL's was assisting him as needed from prior sx. Prior Functional Level (Other details) Pt just had recent cervical disc replacement 2 weeks ago and lower disc failed and shifted and impacted up into the endplate. Pt states did not use the FWW at home as mainly just at home. Social History Household Members spouse Living Arrangements House Number of Floors (Floors) One Floor Number of Stairs To Enter/Railing? 2 step left rail going up. Home Environment Walk in Shower Home Equipment Front Wheel Walker,Straight Cane,Coding Quality Coordinator,Grab Bars In Shower Additional Social History Comment Pt has built in seat for the shower but did not use it last time. M2 OT-IP Current Condition Start: 03/17/20 09:15 Freq: Status: Active Protocol: Document 03/17/20 09:15 [facility] (Rec: 03/17/20 09:35 [facility] [id number]) Occupational Therapy Current Condition Current Condition Evaluation Date 03/17/20 Treatment Diagnosis Removal of C5-6 art. disc replacement and conversion to C5-6 fusion Diagnosis Onset Date 03/16/20 Post Operative Precautions Cervical Spine Precautions Soft Collar for Comfort,No Heavy Lifting,Log Roll M3 OT- IP Subjective and Pain Start: 03/17/20 09:15 Freq: Status: Active Protocol: Document 03/17/20 09:15 [facility] (Rec: 03/17/20 09:35 [facility] [id number]) OT- Subjective Occupational Therapy Visit Type Type Initial Evaluation Visit Start Time 08:45 Visit Stop Time 09:11 Total Visit Minutes 26 Occupational Therapy Visit Comments Patient Comments Pt agreed to get up for OT eval. Patient/Caregiver Goals TO go home. OT Pain Assessment Pain When Pain Assessed At Rest Pain Present Pain Present Pain Reported Location neck Intensity 7 Scale Used Numeric (0 - 10) M4 OT- IP ADL's Start: 03/17/20 09:15 Freq: Status: Active Protocol: Document 03/17/20 09:15 [facility] (Rec: 03/17/20 09:35 [facility] [id number]) OT DLP-Zuyn-Horeffw Comments OT Self-Feeding Comments NOt at meal time, pt states did well and no issues, able to review swallowing information after surgery with pt. OT ADL-Grooming General Evaluation Grooming Ability Standby Assistance Areas Needing Assistance Retrieving/Set-up of Grooming Items Comments OT Grooming Comments VC to bend at his hips to lean into the sink to spit. OT ADL-Oral Care General Eval Oral Care Ability Independent OT ADL-Dressing Comments OT Dressing Comments Pt not wanting to get dressed at this time as pt's to bring him his clothes. Pt has a manager mortgage at home but just had to assist as needed. Pt has flip flop for shoes and educated best to have shoe wear that will not side off his feet, especially when walking backwards. Pt able to after initial cue to tighten the collar more able to independently anibal. doff the soft collar.. Also encourage pt to wear the soft collar more as it is a helpful reminder to follow cervical precautions and given some support to his neck. OT ADL-Toileting General Evaluation Toileting Ability Standby Assistance Comments OT Toileting Comments Distant SBA whiel standing to use urinal. OT ADL-Bathing Comments OT Bathing Comments Not at this time. M5 OT- IP IADL's Start: 03/17/20 09:15 Freq: Status: Active Protocol: Document 03/17/20 09:15 [facility] (Rec: 03/17/20 09:35 [facility] [id number]) OT-Instrumental Activities of Daily Living Home Safety Awareness Awareness of Need for Assistance at Home Good Awareness Ability to Problem Solve Emergency Able to Problem Solve Situations Home Safety Comments Pt's to assist with needs at home and to also care for the dog. Meal Preparation Meal Preparation Caregiver Provides Assist Bladder Tier Bladder Tier Caregiver Provides Assist Driving Driving Caregiver Provides Assist M6 OT- IP Functional Cognition Start: 03/17/20 09:15 Freq: Status: Active Protocol: Document 03/17/20 09:15 [facility] (Rec: 03/17/20 09:35 [facility] [id number]) Cognitive Factors Limiting Selfcare Function Cognitive Ability Level of Alertness Alert Patient Orientation Name,Age,Birthday,Month,Date, Year,Day of Week,Place, Situation Attention Span Ability Capable of Focused Attention, Capable of Sustained Attention Ability to Follow Commands Able to Follow Multi-Step Commands Memory Description No Deficits Noted Safety Awareness No Deficits Noted Cognitive Comments Cognitive Assessment Comments Pt appears to have no cognitive deficits and good awareness of cervical precautions. OT- Vision and Hearing OT- Hearing Assessment OT- Hearing Assessment WFL OT- Vision Assessment Visual Acuity Glasses All The Time M7 OT- IP Mobility and Balance Start: 03/17/20 09:15 Freq: Status: Active Protocol: Document 03/17/20 09:15 [facility] (Rec: 03/17/20 09:35 [facility] [id number]) OT- Bed Mobility Assessment Rolling Type of Rolling Roll to Right Level of Assistance Standby Assistance Supine to Sit Supine to Sit Assist Standby Assistance,Bedrails Sit to Supine Sit to Supine Assist Standby Assistance,Bedrails Scooting Scooting to Edge of Bed Independent OT-Transfer Assessment Sit to and From Stand Sit to and from Stand Standby Assistance,Contact Guard Assistance Transfers Transfer Ability Standby Assistance Technique Transfer Destination Bed Transfer Technique Stand Step Pivot Devices Transfer Assistive Devices None,Gait Belt,Front Wheeled Walker Comments Mobility Comments BP supine 134/72, sitting 129/ 80, standing 130/77 O2 on RA form 88%-95%. Pt tends to be a swallow breather and educated to take deep breaths. Pt CGA to stand and with FWW SBA and then trial to walk to the bathroom CGA and then SBA . Pt states feeling steady on his feet. Pt has a FWW at home that he can use especially for longer distances and uneven terrain. OT- Gait Assessment Gait Gait Assistance Required: Standby Assistance Comments Gait Ability Comments SBA in the room without a device. OT- Balance Assessment Sitting Balance and Reactions Static Sitting Balance Ability Normal Dynamic Sitting Balance Ability Normal Standing Balance and Reactions Static Standing Balance Ability Normal Dynamic Standing Balance Ability Good M8 OT- IP Objective Assessments Start: 03/17/20 09:15 Freq: Status: Active Protocol: Document 03/17/20 09:15 [facility] (Rec: 03/17/20 09:35 [facility] [id number]) OT Gross Range of Motion Upper Extremity Range of Motion Assessment Within Functional Limits OT Strength Upper Extremity Strength Assessment Within Functional Limits M9 OT- IP Assessment and Plan Start: 03/17/20 09:15 Freq: Status: Active Protocol: Document 03/17/20 09:15 [facility] (Rec: 03/17/20 09:35 [facility] [id number]) OT Summary Assessment and Plan Potential Rehabilitation Potential Excellent Analytic Complexity at Evaluation Low Summary OT Impairments Pain,Dressing,Bathing,Shower Transfers Progress Towards Goals Progressing Toward Goals Assessment Summary Pt low complexity and here for removal of C5-6 art disc replacement and conversion to C5-6 fusion. Pt has good awareness for cervical precautions and has a supportive to assist at home. Reviewed swallowing, log rolling and other ADl suggestions to pt. Pt looking to go home today. Goals Bathing Goal Standby Assistance Shower Transfer Goal Standby Assistance Patient/Caregiver Education Goal Demonstrate Post-Op Precautions,Caregiver Independent Assisting Patient Days to Meet Goals 1 Frequency of Treatment Frequency Of Treatment Once a Day Treatment Plan OT Treatment Plan ADL Training,Functional Mobility,Patient/Family Education,Discharge Planning Other Treatment Recommendations and Next Shower if still here. Treatment Focus Discharge Recommendations OT Discharge Recommendations Home with Assistance Transportation Needs at Discharge Private Vehicle
[2020-03-17] MEDS: CELECOXIB 200 MG CAPSULE PO (09:20)
[2020-03-17] MEDS: DOCUSATE 100 MG CAPSULE PO (09:20)
[2020-03-17 09:21] VITALS: BP 149/87
[2020-03-17] MEDS: carvediloL 25 MG TABLET PO (09:21)
[2020-03-17] MEDS: PANTOPRAZOLE 40 MG TABLET PO (09:21)
[2020-03-17] MEDS: lisinopriL 5 MG TABLET PO (09:21)
[2020-03-17] MEDS: HYDROXYCHLOROQUINE 200 MG TABLET PO (09:24)
[2020-03-17] MEDS: predniSONE 5 MG TABLET PO (09:24)
[2020-03-17] MEDS: FISH OIL 1,000 MG CAPSULE 1000 MG PO (09:24)
[2020-03-17] MEDS: azaTHIOprine 50 MG TABLET 150 MG PO (09:24)
[2020-03-17] MEDS: MULTIVIT,CALC,MINS/IRON/FOLIC 1 TABLET 1 TAB PO (09:24)
--- NOTE | 2020-03-17 09:25 | PT.IIE ---
Current Diagnoses Other cervical disc displacement, unspecified cervical region (03/16/20) Strain of muscle, fascia and tendon at neck level, subsequent encounter (03/16/20) Breakdown (mechanical) of internal fixation device of vertebrae, initial encounter (03/16/20) Surgery Performed Operation Date: 03/16/20 17:00 Actual Procedures p removal of C56 artifical disc replacement and conversion to C56 fusion. C45 anterior cervical discectomy and fusion w. bone graft - Raymundo Brizuela MD Surgical History (Last Reviewed 03/07/20 @ 00:49 by Nghia Jackson MD) History of ankle surgery (Acute 1994) History of bilateral carpal tunnel release (Acute 2017) History of colonoscopy (Acute) History of lobectomy of lung (Acute 12/2016) History of lumbar fusion (Acute 2008) History of surgery (Acute 1985) History of surgery (Acute 2002) History of surgery (Acute 2016) Hx of elbow surgery (Acute 2009) Hx of hand surgery (Acute) Hx of laminectomy (Acute 1981) Hx of LASIK (Acute 2000) Medical History (Last Reviewed 03/07/20 @ 00:48 by Nghia Jackson MD) Arthritis (Acute) Cardiomyopathy (Acute) Chronic low back pain (Acute) Chronic prostatitis (Acute) COPD (chronic obstructive pulmonary disease) (Acute) Cough (Acute) Discoid lupus (Acute) Fibromyalgia (Acute) Former smoker (Acute) GERD (gastroesophageal reflux disease) (Acute) HTN (hypertension) (Acute) Labral tear of left hip joint (Acute) Lumbar disc disease (Acute) Lung cancer (Acute 12/2016) Neuropathy (Acute) Osteoarthropathy (Acute) PAF (paroxysmal atrial fibrillation) (Acute 2008) Pulmonary emphysema (Acute) Retinopathy (Acute) RLS (restless legs syndrome) (Acute) Rosacea (Acute) Spinal stenosis (Acute) Subacute cutaneous lupus erythematosus (Acute) Physical Therapy Inpatient Evaluation/Re-Eval M1 PT/OT-IP Prior Functional Status Start: 03/17/20 09:15 Freq: NEEDED Status: Active Protocol: Document 03/17/20 09:15 [facility] (Rec: 03/17/20 09:35 [facility] [id number]) Medical Review Prior Functional Status Medical History Reviewed Yes Communication Independent Mobility and Gait Independent Activities of Daily Living and IADL's was assist him as needed from prior sx. Prior Functional Level (Other details) Pt just had recent cervical disc replacement 2 weeks ago and lower disc failed and shifted and impacted up into the endplate. Pt states did not use the FWW as mainly just at home. Social History Household Members spouse Living Arrangements House Number of Floors (Floors) One Floor Number of Stairs To Enter/Railing? 2 step left rail going up. Home Environment Walk in Shower Home Equipment Front Wheel Walker,Straight Cane,Machine Ii Coremaker,Grab Bars In Shower Additional Social History Comment Pt has built in seat for the shower but did not use it last time. M1 PT/OT-IP Prior Functional Status Start: 03/17/20 10:49 Freq: NEEDED Status: Active Protocol: Document 03/17/20 09:25 AB (Rec: 03/17/20 10:58 AB [id number]) Medical Review Prior Functional Status Medical History Reviewed Yes Communication able to make needs known Mobility and Gait pt stated that he is independent with all mobilities and ambulation without AD Activities of Daily Living and IADL's pt stated that he was able to take care of himself Social History Household Members spouse Living Arrangements House Number of Floors (Floors) Two Floors Number of Stairs To Enter/Railing? pt stays on main level of the house. 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 PT-IP Current Condition Start: 03/17/20 10:49 Freq: NEEDED Status: Active Protocol: Document 03/17/20 09:25 AB (Rec: 03/17/20 10:58 AB [id number]) Physical Therapy Current Condition Current Condition Evaluation Date 03/17/20 Treatment Diagnosis C4-5 ACDF; difficulty in walking Onset Date 03/16/20 Precautions Cervical Spine Precautions Soft Collar for Comfort,No Heavy Lifting,Log Roll M3 PT-IP Subjective Start: 03/17/20 10:49 Freq: NEEDED Status: Active Protocol: Document 03/17/20 09:25 AB (Rec: 03/17/20 10:58 AB [id number]) Subjective Physical Therapy Visit Type Type Initial Evaluation Visit Start Time 09:25 Visit Stop Time 09:36 Total Visit Minutes 11 Number of GERONTOLOGICAL NURSE PRACTITIONER Visits 0 Physical Therapy Visit Comments Patient Comments agreeable to do PT Therapy Pain Assessment Pain When Pain Assessed At Rest Pain Present Pain Present Pain Reported Location neck Intensity 7 Scale Used Numeric (0 - 10) Pain Management Techniques Re-positioning,Timing of Activity with Medications M4 PT-IP Mobility and Gait Start: 03/17/20 10:49 Freq: NEEDED Status: Active Protocol: Document 03/17/20 09:25 AB (Rec: 03/17/20 10:58 AB [id number]) PT-Bed Mobility Assessment Rolling Type of Rolling Log Rolling Level of Assist Standby Assistance Supine to Sit Supine to Sit Standby Assistance Sit to Supine Sit to Supine Standby Assistance Scooting Scooting to Edge of Bed Standby Assistance PT-Transfer Assessment Sit to and From Stand Sit to and from Stand Standby Assistance Equipment Transfer Assistive Device None,Gait Belt Orthotic/Prosthetic Devices or Brace: No Comments Mobility Comments completed supine to sit SBA. able to manage his collar and recall his precautions. pt was able to sit on EOB SBA. completed sit to stand SBA and ambulated in the hallway SBA without AD. completed up/down steps and ambulated back to his room. pt sat on EOB. call light and table next to pt. informed nurse that pt is ready to d/c and just waiting for his spouse. Gait Assessment Gait Gait Assistance Required: Standby Assistance Distance (Feet) 200 Able to Maintain Weight Bearing Status Yes During Gait Assistive Devices Assistive Device None,Gait Belt Orthotic/Prosthetic Devices or Brace: Yes Factors Limiting Gait Function Factors Limiting Gait Function Decreased Activity Tolerance, Decreased Strength,Limited Range of Motion,Pain,Poor Balance Stair Climbing Assessment Evaluation Level of Assist On Stairs Standby Assistance Devices Stair Climbing Assistive Devices Left Railing Technique/Endurance Stair Climbing Direction Ascend and Descend Stair Climbing Technique Step Over Step Number of Steps Climbed 3 Query Text: Stair Climbing Set # Repetitions (reps) 1 Comments Stair Climbing Comments pt presents with unsteady descent on stairs and educated on safety and doing step to step pattern going down steps for safety. pt agreed. PT-Balance Assessment Sitting Balance and Reactions Static Sitting Balance Ability Normal Dynamic Sitting Balance Ability Good Standing Balance and Reactions Static Standing Balance Ability Good Dynamic Standing Balance Ability Good Device Used without AD M5 PT-IP Objective Assessments Start: 03/17/20 10:49 Freq: NEEDED Status: Active Protocol: Document 03/17/20 09:25 AB (Rec: 03/17/20 10:58 [id number]) Orientation Orientation/Cognition Level of Alertness Alert Orientation Name,Age,Birthday,Month,Date, Year,Day of Week,Place, Situation Language Function Ability No Deficits Noted Safety Awareness Understands Safety Issues Memory Description No Deficits Noted Gross Range of Motion Lower Extremity ROM Assessment Within Functional Limits Strength Lower Extremity Strength Assessment Within Functional Limits Coordination Assessment Gross Coordination Gross Coordination WNL Sensation Assessment Sensation Gross Sensation Right UE Impaired Light Touch Impaired Proprioception (Position) Impaired Sensation Description Numbness Comments Sensation Comments R thumb numbness Muscle Tone Muscle Tone WNL Yes M6 PT-IP Treatment Start: 03/17/20 10:49 Freq: NEEDED Status: Active Protocol: Document 03/17/20 09:25 AB (Rec: 03/17/20 10:58 [id number]) Physical Therapy Treatment Education Education Provided Precautions,Safety M7 PT-IP Assessment and Plan Start: 03/17/20 10:49 Freq: NEEDED Status: Active Protocol: Document 03/17/20 09:25 AB (Rec: 03/17/20 10:58 [id number]) PT Summary Assessment and Plan Potential Rehabilitation Potential Good Status of Condition at Evaluation Stable Summary Impairments Pain,ROM,Strength,Balance, Coordination,Sensation,Bed Mobility,Transfers,Gait, Activity Tolerance Assessment Summary pt requiring SBA with mobility without AD and plans to go home today with spouse to assist him. pt may go home when stable. Goals Bed Mobility Goal Independent Transfer Goal Independent Gait Goal Independent Gait Distance 250 Other Goals up/down 3 steps L rail mod I Days to Meet Goals 3 Frequency of Treatment Frequency Of Treatment Twice a Day Treatment Plan Physical Therapy Treatment Plan Bed Mobility Training,Transfer Training,Gait Training, Therapeutic Exercise,Balance Retraining,Post Op Education, Discharge Planning,Hot or Cold Pack,Neuromuscular Re-ed, Coordination Retraining,Manual Therapy Recommendations To Nursing Amount of Assist Needed Standby Assistance Discharge Recommendations PT Discharge Recommendations Home with Assistance Transportation Needs at Discharge Private Vehicle
[2020-03-17] MEDS: FUROSEMIDE 20 MG TABLET 10 MG PO (09:26)
--- NOTE | 2020-03-17 11:43 | PC.NURSE ---
Pt is dressed and ready for discharge home with Spouse. Discussed d/c meds, time of last dose, reviewed stroke education, s/s of infection, no lifting greater than 10 pounds, showering and follow up. Pt and Spouse denied further questions and were taken out via w/c by [employer] with all belongings.
--- NOTE | 2020-03-17 12:29 | CM.IDA ---
Initial DCP Assessment Note: Pt is a 54 yo male, resident of [place], now POD#1 from spinal surgery w/ Dr Brizuela PCP: Aparna Fofana Payer: [employer] Reviewed chart, pt discussed in multidisciplinary rounds this morning. Therapy has cleared pt for return home w/family to assist and pt has planned for home, DC order from Ortho has already been initiated this morning. No needs expected from DC planning team although will remain available in case this changes today. SARIKA Mason
== END 2020-03-17 12:20 | disposition home or self-care (01) | DRG 472 ==
PROVIDERS: Admitting Provider Orthopaedic Surgery; PCP Family Medicine; Referring Provider Orthopaedic Surgery; Visit Provider Orthopaedic Surgery
PROC: 0RG20A0 Fusion of 2 or more Cervical Vertebral Joints with Interbody Fusion Device, Anterior Approach, Anterior Column, Open Approach (ICD-10-PCS; principal; 2020-03-16 17:00)
DX: M48.02 Spinal stenosis, cervical region (principal); T84.028A Dislocation of other internal joint prosthesis, initial encounter; M32.9 Systemic lupus erythematosus, unspecified; M79.7 Fibromyalgia; M54.12 Radiculopathy, cervical region; J44.9 Chronic obstructive pulmonary disease, unspecified; Z87.891 Personal history of nicotine dependence; Z01.812 Encounter for preprocedural laboratory examination; Z11.59 Encounter for screening for other viral diseases
CPT/HCPCS: 72040; 76000; 87635; 97161; 97165; C1776; A9270; J0690; J1100; J1170; J1453; J2405; J2704; J3010; J3410; J7500

== ENCOUNTER → 2020-11-21 14:11 | Outpatient (CLI) | payer OTHER, SELFPAY ==
[2020-03-16 19:08] VITALS: BMI 37.0
[2020-11-21 17:22] LABS: COVID19 -Nasal RAPID Negative (Negative)
== END ==
PROVIDERS: PCP Family Medicine; Visit Provider Nurse Practitioner
DX: Z01.812 Encounter for preprocedural laboratory examination (principal); Z20.822 Contact with and (suspected) exposure to COVID-19
CPT/HCPCS: 87635

== ENCOUNTER 2020-11-24 06:17 | Day surgery (SDC) | payer OTHER, SELFPAY ==
[2020-03-16 19:08] VITALS: BMI 37.0
[2020-11-24] VITALS (10 sets, daily range): BP systolic 134–167; BP diastolic 78–94; PULSE 73–88; RESP 12–93; TEMP 36.3–36.6; O2SAT 14–97; BMI 33.5
[2020-11-24] MEDS: LACTATED RINGERS 1,000 ML 42 ML IV ×2 (07:19→09:32)
[2020-11-24] MEDS: ALBUTEROL 2.5 MG/3 ML NEB (ADULT) INH (07:30)
--- NOTE | 2020-11-24 07:30 | PM.PREOP ---
Pre-operative Note COVID-19 COVID-19 status: Negative Result date/Date tested (Pos, Neg/Pending): 11/21/20 Interval Note History & Physical reviewed/Exam performed by Physician: Yes Changes to H&P: No
--- NOTE | 2020-11-24 07:33 | PM.HP.1 ---
History of Present Illness History of Present Illness Date Patient Seen: 11/24/20 Time Patient Seen: 07:21 Chief complaint: LEFT SHOULDER Narrative: Left shoulder impingement with AC joint arthritis that has been unresponsive to conservative treatment. Patient History Medical History Arthritis Arthritis of left acromioclavicular joint Cardiomyopathy Chronic low back pain Chronic prostatitis COPD (chronic obstructive pulmonary disease) Cough Discoid lupus Fibromyalgia Former smoker GERD (gastroesophageal reflux disease) HTN (hypertension) Impingement syndrome, shoulder, left Labral tear of left hip joint Lumbar disc disease Lung cancer (12/2016) Neuropathy Osteoarthropathy PAF (paroxysmal atrial fibrillation) (2008) Partial tear of left rotator cuff Pulmonary emphysema Retinopathy RLS (restless legs syndrome) Rosacea Spinal stenosis Subacute cutaneous lupus erythematosus Surgical History History of ankle surgery (1994) History of bilateral carpal tunnel release (2017) History of colonoscopy History of lobectomy of lung (12/2016) History of lumbar fusion (2008) History of surgery (1985) History of surgery (2002) History of surgery (2016) Hx of elbow surgery (2009) Hx of hand surgery Hx of laminectomy (1981) Hx of LASIK (2000) Family & Social History Social History: household members spouse Tobacco & Substance use: Tobacco type cigarettes Smoking Status Former smoker alcohol intake current alcohol intake frequency a few times a week Substance Use Type does not use Meds Home Medications and Allergies Home Medications Medication Instructions Recorded Confirmed Type Spiriva Respimat 1 puff INHALATION BID 02/29/20 11/22/20 History azathioprine [Imuran] 150 mg PO DAILY 02/29/20 11/24/20 History carvedilol 25 mg PO BID 02/29/20 11/24/20 History fluticasone propion-salmeterol 1 inh INHALATION BID 02/29/20 11/24/20 History [Advair Diskus] lisinopril 5 mg PO BID 02/29/20 11/22/20 History multivitamin 1 cap PO DAILY 02/29/20 11/24/20 History omega 1-xsc-tyb-fish oil [Fish Oil] 1 cap PO DAILY 02/29/20 11/24/20 History omeprazole 40 mg PO DAILY 02/29/20 11/24/20 History prednisone 5 mg PO DAILY 02/29/20 11/24/20 History furosemide 10 mg PO QAM 03/03/20 11/24/20 History docusate sodium [DOK] 100 mg PO BID PRN #30 cap 03/04/20 11/24/20 Rx hydrocodone-acetaminophen See Rx Instructions .ROUTE 03/17/20 11/22/20 Rx .COMPLEX PRN #30 tab albuterol 180 mcg INHALATION Q4-6H PRN 11/22/20 11/24/20 History desonide 1 applic TOPICAL QD-BID PRN 11/24/20 11/24/20 History diclofenac sodium 50 mg PO BID 11/24/20 11/24/20 History hydroxychloroquine [Plaquenil] 200 mg PO DAILY 11/24/20 11/24/20 History Allergies Allergy/AdvReac Type Severity Reaction Status Date / Time codeine AdvReac Severe Nausea Verified 11/24/20 06:46 gabapentin AdvReac Severe Double Verified 11/24/20 06:46 vision Review of Systems Review of Systems ROS: Yes All systems reviewed with the patient and are negative except as otherwise documented Exam Vital Signs (past 8 hours): - 11/24/20 07:10 Temperature 97.7 F Pulse Rate 80 Respiratory Rate 16 Blood Pressure 135/80 Pulse Oximetry 95 Oxygen Delivery Method Room Air Narrative Exam Narrative: On physical exam, no swelling or deformities to the shoulder. Patient has difficulty with range of motion due to pain but not due to stiffness. Difficulty going beyond about 90? of both forward flexion and abduction. Normal external rotation with the arm at the side and internal rotation is limited to these small of the back. Pain and weakness in supraspinatus strength testing but normal strength in infraspinatus and subscapularis testing. Positive impingement signs and pain with impingement testing. Signs of arthritic changes to the AC joint and tender to palpation over the AC joint. Pain with cross-arm adduction testing. Assessment & Plan Assessment & Plan narrative: Left shoulder impingement and AC joint arthritis unresponsive to conservative treatment. Due to this fact patient is interested in surgical treatment. He fully understands the risks and limitations associated with this procedure. COVID-19 COVID-19 status: Negative Result date/Date tested (Pos, Neg/Pending): 11/21/20 Time Spent With Patient Time with patient: less than 15 minutes
[2020-11-24] MEDS: CEFAZOLIN 2 GM/100 ML FROZ.PIGGY IV (07:58)
--- NOTE | 2020-11-24 08:07 | SUR.PREOP ---
Block start time [0737] . Monitoring initiated and maintained throughout procedure. Oxygen and medications given per anesthesiologist instructions. Patient remained stable throughout procedure, no adverse reactions noted. Block end time [0748].Pt was awake and speaking throughout procedure. Monitor defaulted to manual and this RN was not aware at the time. Only 2 VS were taken as a result.
[2020-11-24] MEDS: LIDOCAINE 1% W/EPI 20 ML INJ (08:32)
[2020-11-24] MEDS: SODIUM CHLORIDE IRRIG SOLUTION 3,000 ML, EPINEPHrine 1 MG IRR (08:33)
--- NOTE | 2020-11-24 08:37 | SUR.OPER ---
Beach chair with skytron shoulder positioner. Lower body on padded OR bed. Head in foam padded head cradle, secured with straps. Non-operative arm secured <90 degrees abduction. Pillow under knees. Safety belt at thigh. Cloth tape over blanket over lower legs.
--- NOTE | 2020-11-24 08:49 | PM.PROC.1 ---
Procedures Date/Time Date of procedure: 11/24/20 Time of procedure: 07:37 Nerve Block Location of anesthetic used: 9ml Ropivacaine 0.5% and 2ml Lidocaine 2% with epi; skin wheal: Lido 1% Amount of anesthesia used (mL): 11 Nerve blocks: brachial plexus (Left Interscalene Block) Procedure successful: Yes Patient tolerated procedure: well and no complications Complications: none and pain with procedure (Initial discomfort to shoulder upon injection, transient. Pt chris well.) Additional comments: Block done preoperatively in Procedure Room. Consent signed. Routine monitors and NC O2. Nerve Stimulator and Ultrasound used. Chloroprep and sterile drape. IV sedation with fentanyl 50mcg and versed 1mg given. Nerve bundle visualized with US. Local skin wheal with 25g. 22g 50mm Stimex needle advanced. Positive twitch to 0.7mAmp. Negative aspiration and negative test dose. Total volume of 11ml: Ropivacaine 0.5% 9ml and Lidocaine 2% with epinephrine 2ml. Patient tolerated procedure well.
--- NOTE | 2020-11-24 09:51 | PM.OP.1 ---
Operative Date/Time/Diagnoses Date of procedure: 11/24/20 Time of procedure: 08:00 Pre-op diagnosis: Left shoulder subacromial impingement as well as AC joint arthritis and partial rotator cuff tearing. Post-op diagnosis: same Procedure & Clinicians Procedure: Arthroscopic subacromial decompression, distal clavicle excision, extensive debridement. CPT codes 34722, 19425, 61945. Same procedure as scheduled: Yes Indications: Left shoulder impingement with AC joint arthritis as well as partial rotator cuff tearing Surgeon: Gino Carroll Yes if Unassisted: No Anesthesia Type: General and Peripheral nerve block Operative Notes Findings: Moderate signs of partial tearing to the articular surface of the supraspinatus particularly the most anterior portion of the supraspinatus. None of the partial tearing seem to involve more than 50% of tendon thickness. Patient did not have any signs of any significant arthritic changes to the glenohumeral joint. There was degenerative changes throughout the labrum but the biceps was relatively free of any synovitis or tearing. No sign of any loose bodies. Some synovitis in the anterior aspect of the shoulder around the subscapularis. There was some tearing to the most superior aspect of the subscapularis more medially but not affecting the insertion site. Subacromial space had significant amount of synovitis and bursitis as well as impingement lesion in the acromial arch. Signs of AC joint arthritis with only mild inferior osteophytes. Some mild partial tearing to the bursal aspect of the cuff more fraying than actual tearing no sign of any high-grade partial tears. Closure Type: primary Specimen(s): none sent Estimated Blood Loss (mL): 5 Procedure in detail: On date of service, Patient was met in the holding area. The operative site was signed and witnessed by the OR staff. The surgeries once again discussed with the patient and any remaining questions they had were answered fully. Patient was taken back to the operating theater and placed on the operating table in a supine position. Great care was taken to ensure that all bony prominences were properly padded. Patient was then placed into the beach chair position. The head and neck were properly positioned and secured. A timeout was performed verifying patient's name, procedure, and the operative site. The upper extremity was then prepped and draped in the normal sterile fashion. Previously, the bony anatomy and portal sites were marked out as well as injected with Marcaine with epinephrine. An 11 blade was used to make an incision in the posterior aspect of the shoulder. The camera was placed, and a diagnostic shoulder scope was performed. Findings listed above. Next under direct visualization, a anterior portal was made. Shaver was used to debride the degenerative changes throughout the labrum as well as the partial tearing to the most superior aspect of the subscapularis. Shaver was also used to debride the moderate articular surface partial tearing particularly involving the anterior aspect of the supraspinatus. Next the camera was placed into the subacromial space. A lateral portal was obtained under direct visualization. A combination of the shaver and vapor wand, a debridement of the inflamed tissue as well as inflamed bursa was performed. The lateral gutter was also cleaned out. This gave us good visualization of the bursal aspect of the rotator cuff as well as the acromial arch. There was an obvious impingement lesion in the acromial arch. Combination of the shaver and vapor Wand were used to completely debride out both the subacromial space as well as the subdeltoid space removing any synovitis and inflamed bursal tissue. Next we turned our attention to the subacromial decompression. Next, a mechanical rasp was then used to do a subacromial decompression. This allowed us to convert the acromion to a type I acromial. This also allowed us to shave down the bony lesion in the acromial space. The rasp was placed into the lateral portal as well as the anterior portal in order to do a complete subacromial decompression. We next turned our attention to the distal clavicle. Using the shaver in the vapor wand we were able to clean out all the soft tissue around the distal clavicle as well as into the a.c. joint. This gave us good visualization of the arthritic changes to the distal clavicle as well as good of the a.c. joint allowing us to assess our distal clavicle excision. Of the inferior osteophytes coming off the distal clavicle. Using the mechanical rasp in the anterior portal, we were able to remove the inferior osteophytes as well as do a distal clavicle excision. The camera was then placed into the anterior portal which gave us a direct visualization of the a.c. joint allowing us to assess the distal clavicle excision. We then turned our attention to the rotator cuff tear. There was Mild signs of bursal sided fraying of the rotator cuff but no high-grade tears. The shoulder was then taken through range of motion and there was no sign of any additional impingement. Next, the suprascapular nerve was blocked. Patient's shoulder was then cleaned dried and dressed and patient was taken to the PACU in stable condition. Complications: none Post-operative Condition: stable Disposition: PACU Plan for aftercare: Patient will follow our postoperative protocol for subacromial impingement with distal clavicle excision.
--- NOTE | 2020-11-24 11:02 | SUR.PHASEII ---
Assumed care from Zenaida. VSS, dressing to l shoulder c/d/i. tolerating fluids. wishing to be discharged, on her way. D/C instructions discussed pt voiced an understanding. Pt up to BR steady when up. Voided w/o difficulty. VERTICAL CONTOUR BAND SAW OPERATOR assisted pt to dress. Pt left unit in stable condition.
== END 2020-11-24 11:00 | disposition home or self-care (01) ==
PROVIDERS: PCP Family Medicine; Referring Provider Orthopaedic Surgery; Visit Provider Orthopaedic Surgery
PROC: (CPT 29805; principal; 2020-11-24 07:45)
DX: M75.42 Impingement syndrome of left shoulder (principal); M19.012 Primary osteoarthritis, left shoulder; M75.112 Incomplete rotator cuff tear or rupture of left shoulder, not specified as traumatic; M25.712 Osteophyte, left shoulder; J44.9 Chronic obstructive pulmonary disease, unspecified; I10 Essential (primary) hypertension; K21.9 Gastro-esophageal reflux disease without esophagitis
CPT/HCPCS: 29823; 29824; 29826; 64450; J0171; J0690; J1100; J2250; J2405; J2704; J3010; J7613

== ENCOUNTER → 2021-08-21 14:44 | Outpatient (CLI) | payer OTHER, SELFPAY ==
[2020-03-16 19:08] VITALS: BMI 37.0
[2021-08-21 15:47] LABS: COVID19 -Nasal RAPID Negative (Negative)
== END ==
PROVIDERS: PCP Family Medicine; Referring Provider Physician Assistant; Visit Provider Physician Assistant
DX: Z20.822 Contact with and (suspected) exposure to COVID-19 (principal)
CPT/HCPCS: 87635

== ENCOUNTER 2021-08-24 06:33 | Inpatient (IN) | payer OTHER, SELFPAY ==
[2020-03-16 19:08] VITALS: BMI 37.0
[2021-08-22 13:28] VITALS: BMI 34.2
[2021-08-24] VITALS (25 sets, daily range): BP systolic 121–172; BP diastolic 65–98; PULSE 79–113; RESP 12–23; TEMP 35.1–37.3; O2SAT 89–96; BMI 34.0
--- NOTE | 2021-08-24 | DI.RAD.S_ITS ---
PROCEDURE: XR LUMBAR SPINE 2-3V INDICATIONS: TLIF TECHNIQUE: 3 fluoroscopic images of the lumbar spine were acquired. COMPARISON: [facility] Renee, HENRIK, LUMBAR RHIZOTOMY, 06/28/2020, 13:19. FINDINGS: Bones: Intraoperative fluoroscopic images demonstrate discectomy and fixation hardware at L2-3 4 as annotated. IMPRESSION: Lumbar spine fixation hardware as detailed above. Dictated by: Gary Magaña M.D. on 08/24/2021 at 14:42 Approved by: Gary Magaña M.D. on 08/24/2021 at 14:45
[2021-08-24] MEDS: LACTATED RINGERS 1,000 ML 42 ML IV ×2 (07:11→11:07)
--- NOTE | 2021-08-24 07:48 | PM.PREOP ---
Pre-operative Note COVID-19 COVID-19 status: Negative Result date/Date tested (Pos, Neg/Pending): 08/22/21 Interval Note History & Physical reviewed/Exam performed by Physician: Yes Changes to H&P: No
[2021-08-24] MEDS: CEFAZOLIN 2 GM/20 ML SYRINGE IV ×3 (07:59→20:49)
--- NOTE | 2021-08-24 08:33 | SUR.OPER ---
Prone on spine table, head in foam head support, padded chest and pelvic supports, gel pad at knees, lower legs supported by pillows; nipples, genitalia and toes free of pressure, arms secured on foam padded arm boards at <90 degrees abduction. Tape over blanket at thigh secured to table.
[2021-08-24] MEDS: BUPIVACAINE 0.25% (PF) 30 ML, EPINEPHrine 0.3 MG INJ (08:40)
[2021-08-24] MEDS: ACETAMINOPHEN IV 1,000 MG/100 ML VIAL 400 MG IV (08:40)
[2021-08-24] MEDS: BUPIVACAINE LIPOSOME 266 MG/20 ML VIAL INJ (08:41)
--- NOTE | 2021-08-24 13:25 | PM.OP.1 ---
Operative Date/Time/Diagnoses Date of procedure: 08/24/21 Time of procedure: 07:45 Pre-op diagnosis: 1. L2-3, L3-4 spinal stenosis 2. L4-5 history of fusion with hardware 3. L2-3, L3-4 spondylolisthesis Post-op diagnosis: same Procedure & Clinicians Procedure: 1. L2-3, L3-4 posterolateral and posterior interbody fusion 2. L2-3, L3-4 posterior interbody cage placement 3. L4-5 posterior non-segmental instrumentation removal 4. L4-5 revision laminectomy with exploration of fusion 5. L2-3, L3-4 posterior segmental instrumentation with pedicle screw placement 6. L4-5 posterolatearl fusion 7. [place] of bone marrow from iliac crest through a separate incision 8. Utilization of microsurgical technique and operating microscope 9. Robotic assisted navigation surgery Same procedure as scheduled: Yes Indications: Patient has been having chronic back pain and worsening lumbar radiculopathy. Patient had retained hardware from prior fusion surgery in 2008. Patient failed multiple conservative management with worsening pain weakness and numbness in his lower extremity. Patient has been having difficulty performing activity of daily living. After discussing risks benefits of treatment options, patient elected proceed with surgery. Surgeon: Chanel Haywood Kier Hand: Lisa Wise Click Yes if Unassisted: No Anesthesia Type: General Operative Notes Closure Type: primary Specimen(s): none sent Prosthetic devices, grafts, tissues, transplants, or devices: Globus CREO MIS screws, Rise cages Applied: catheter Estimated Blood Loss (mL): 150 Blood products transfused: none Procedure in detail: Patient was seen in the preoperative area. Risks and benefits of the surgery was discussed with the patient. Informed consent was obtained from the patient and placed in the chart. Surgical site was marked. Patient was taken to the operative room. General anesthesia was administered. Prophylactic antibiotic was given to the patient less than 30 min before the incision was made. Patient was placed into a prone position on the Darrel table. Patient's back was then prepped and draped in the sterile fashion. Time-out was performed at this time. After patient was prepped and draped, patient's PSIS was palpated and marked bilaterally. Small 1 cm incision was made over the PSIS for placement of the reference probes. Two trocar was placed into the PSIS 1 on each side. The reference probe was attached to the trocar of the reference apparatus. At this time the C-arm imaging was used to confirm AP and lateral of L2, L3, L4, L5 vertebrae and merged the C-arm imaging using the 2,10E+07 robotic navigation system with the CT of the lumbar spine. After successful merging was completed and confirmed, skin marker was used to kristie out the skin incision using the 2,10E+07 robotic arm. Bilateral incision was made at this time. Using patient's previous scar incision was made over the L2, L3, L4, L5 interval on the left side. Fascia was incised in line with skin incision. Patient's previously placed hardware over the L4-5 level was identified by dissecting down to the level the hardware using a Bovie and a Lazcano. The locking caps which was removed using Smartfieldus screwdriver. The locking medina was then removed from the tulips of the pedicle screws using a Kamini. The pedicle screws were then removed using the screwdriver. The screws were found to have good purchase. The L5 screws bilaterally were found to have partial stripping of the mechanism from the previous surgery. Additional manipulation might cause additional bleeding. Decision was made to leave the L5 screws in patient's L5 vertebrae. L4 screws bilaterally were removed without difficulty along with locking caps and the previously placed locking medina. Pre templated trajectory was used and guided using the 2,10E+07 robotic navigation system for left L2, L3, L4 pedicle screws and right L2, L3, L4 pedicle screws placement. This was done by using the robotic arm to guide the high-speed bur to make a cortical entry point. Next a drill was placed also using the robotic arm and guided using the navigation system drilling partially through bilateral L2, L3, [id number]. Next L2, L3, L4 pedicle screws it was pre templated and measured was placed onto the power funeral car driver and inserted into the pedicles bilaterally. After all 8 screws were placed C-arm imaging was taken of both AP and lateral to confirm the placement. Excellent placement of the screws were confirmed and a matched precisely with the pre planned screw placement using the navigation system. MARs retractor was inserted using [employer] guidence. Globus MARS retractors was placed inside the incision and docked onto the L2 and L3 lamina. Using microsurgical technique and operating microscope, a L2, L3 laminectomy and L2-3, L3-4 facetectomy was performed using a Kerrison rongeur. Patient was found have severe lateral recess and neural foramen stenosis which was fully decompressed after the laminectomy facetectomy. More than 75% of the facets were removed during the process of decompression rendering L2-3, L3-4 level grossly unstable and required a fusion procedure at the same time. The disc space at L2-3, L3-4 was identified, and a total diskectomy was performed at L2-3, L3-4 level. The endplates were decorticated using a rasp and shaver. The total diskectomy and decortication was performed at L2-3, L3-4 level in order to to accomplish a L2-3, L3-4 fusion. The local bone from the laminectomy and facetectomy was saved for local bone grafting. After the total diskectomy and decortication was completed, Trifecta bone graft material was combined with local bone that was harvested earlier. At this time, a separate skin is incision was made over the iliac crest. A Jamshidi needle was inserted into the iliac crest through a separate skin incision. 5 cc of bone marrow aspiration was obtained through the separate skin incision using a Jamshidi needle from the iliac crest. The bone marrow aspiration was combined with local bone and the Trifecta bone grafting material. The bone grafting material was placed into the L2-3, L3-4 interbody space along with a expandable cage. The cage was expanded to its maximum height using the torque limiting screwdriver. The disc preparation as well as the cage insertion were also performed under navigation guidance. After the cage was placed, AP and lateral C-arm imaging was taken to confirm placement of the cage and excellent position was confirmed. The fusion mass on the right side of L4-5 was exposed by performing a right-sided hemilaminectomy at L4-5 level. The hemilaminectomy was performed using the Kerrison rongeur to undercut the lamina as well removing additional epidural scar tissue for purpose of decompressing the epidural space. The fusion mass was explored and was found have visible motion indicating pseudoarthrosis. Globus MARS retractor was inserted and docked onto the L2-3, L3-4, L4-5 posterolateral gutter. Using the power drill, posterior-lateral decortication was performed at L2-3, L3-4, L4-5 level until bleeding cortical bone was identified. The remaining bone grafting material was placed into the L2-3, L3-4, L4-5 posterior lateral gutter he order to accomplish posterolateral fusion at the L2-3, L3-4, L4-5 level. At this time the tulips were attached to the L2, L3, L4 pedicle screw shanks. This was done in L2, L3, L4 pedicles bilaterally. After measuring the length of the rods, they were inserted into the tulips of the pedicle screws and locked in place using locking caps and torque limiting screwdriver bilaterally. Total 6 caps and 2 titanium rods was used in order to complete the posterior instrumentation construct. After all the hardware was placed, and confirmed with AP and lateral C-arm imaging, the wound was then irrigated with sterile normal saline and packed with Ray-Ayah gauze for 3 min to accomplish hemostasis. After the gauze was removed the deep fascia was closed with #1 Vicryl suture. The subcutaneous layer was closed with 2-0 Vicryl. The skin was closed with skin brian. Patient tolerated the procedure well. There were no complications. Neuro monitoring system was used to monitor patient's neurologic status throughout entire procedure. There was no disturbance of the neural monitoring signals throughout the case. Complications: none Post-operative Condition: stable Disposition: PACU Plan for aftercare: Admit to inpatient hospital
[2021-08-24] MEDS: fentaNYL 100 MCG/2 ML INJ 50 MCG IV ×2 (13:51→14:33)
[2021-08-24] MEDS: HYDROMORPHONE 2 MG INJ IV (14:03)
[2021-08-24] MEDS: OXYCODONE IR 5 MG TABLET PO (14:17)
[2021-08-24] MEDS: LORazepam 2 MG/ML INJ 0.25 MG IV (14:50)
[2021-08-24] MEDS: ONDANSETRON 4 MG/2 ML INJ IV ×2 (15:23→20:52)
[2021-08-24] MEDS: SODIUM CHLORIDE 0.9% 1,000 ML 100 ML IV (15:54)
[2021-08-24] MEDS: IPRATROPIUM 0.5 MG/2.5 ML NEB INH ×2 (16:40→21:43)
[2021-08-24] MEDS: HYDROMORPHONE 0.5 MG INJ IV ×2 (19:50→21:53)
[2021-08-24] MEDS: carvediloL 12.5 MG TABLET 25 MG PO (20:59)
[2021-08-24] MEDS: lisinopriL 5 MG TABLET PO (20:59)
[2021-08-25] VITALS (10 sets, daily range): BP systolic 107–142; BP diastolic 54–80; PULSE 79–99; RESP 14–20; TEMP 36.8–38.4; O2SAT 89–100
[2021-08-25] MEDS: HYDROMORPHONE 0.5 MG INJ IV ×7 (00:32→20:41)
[2021-08-25] MEDS: SODIUM CHLORIDE 0.9% 1,000 ML 100 ML IV (02:34)
[2021-08-25] MEDS: CEFAZOLIN 2 GM/20 ML SYRINGE IV (03:37)
[2021-08-25] MEDS: PANTOPRAZOLE DR 40 MG TABLET PO (05:47)
[2021-08-25 06:40] LABS: Hemoglobin 11.9 g/dL (13.5-17.5)
[2021-08-25] MEDS: azaTHIOprine 50 MG TABLET 150 MG PO (08:21)
[2021-08-25] MEDS: predniSONE 5 MG TABLET PO (08:21)
[2021-08-25] MEDS: MULTIVITAMIN 1 TABLET 1 TAB PO (08:21)
[2021-08-25] MEDS: FUROSEMIDE 20 MG TABLET PO (08:21)
[2021-08-25] MEDS: OXYCODONE IR 5 MG TABLET 10 MG PO ×4 (08:21→20:41)
[2021-08-25] MEDS: SODIUM CHLORIDE 0.9% FLUSH 10 ML IV ×2 (08:22→22:41)
[2021-08-25] MEDS: HYDROXYCHLOROQUINE 200 MG TABLET 400 MG PO (08:22)
[2021-08-25] MEDS: DOCUSATE 100 MG CAPSULE PO ×2 (08:22→20:40)
[2021-08-25] MEDS: lisinopriL 5 MG TABLET PO (08:22)
[2021-08-25] MEDS: FISH OIL 1,000 MG CAPSULE 1000 MG PO (08:22)
[2021-08-25] MEDS: carvediloL 12.5 MG TABLET 25 MG PO ×2 (08:30→20:39)
[2021-08-25] MEDS: IPRATROPIUM 0.5 MG/2.5 ML NEB INH ×2 (08:41→19:15)
--- NOTE | 2021-08-25 09:17 | PM.PNPO.1 ---
Subjective Subjective Date Patient Seen: 08/25/21 Time Patient Seen: 09:17 Interval history: Patient's pain is moderate to severe. Denies fever or chills. Patient has been nauseous overnight and vomited a couple times. Notes new left 4th and 5th finger numbness. Exam Vital Signs (past 8 hours): - 08/25/21 04:00 08/25/21 08:45 08/25/21 08:48 Temperature 98.3 F Pulse Rate 91 H 87 Respiratory Rate 14 16 Blood Pressure 142/73 H Pulse Oximetry 98 95 95 Oxygen Delivery Method Room Air Oxygen Flow Rate 0 Narrative Exam Narrative: 55-year-old male resting comfortably in bed in no apparent distress. Dressing is Clean, dry, intact. Motor functions intact bilateral lower extremities. Sensation grossly intact to light touch bilateral lower extremities. SCDs are on and functioning. Both legs are warm and dry. Patient has full movement of the left hand and fingers. Sensation is grossly intact to light touch all fingers. Good capillary refill. Objective Labs Result Diagrams: 08/25/21 06:25 Labs: Laboratory Results - last 24 hr 08/25/21 06:25 Hgb 11.9 L Hct 35.0 L [facility] Medical History Arthritis Arthritis of left acromioclavicular joint Cardiomyopathy Chronic low back pain Chronic prostatitis COPD (chronic obstructive pulmonary disease) Cough Discoid lupus Fibromyalgia Former smoker GERD (gastroesophageal reflux disease) HTN (hypertension) Impingement syndrome, shoulder, left Labral tear of left hip joint Lumbar disc disease Lung cancer (12/2016) Neuropathy Osteoarthropathy PAF (paroxysmal atrial fibrillation) (2008) Partial tear of left rotator cuff Pulmonary emphysema Retinopathy RLS (restless legs syndrome) Rosacea Spinal stenosis Subacute cutaneous lupus erythematosus Surgical History History of ankle surgery (1994) History of arthroscopy of left shoulder (11/24/20) History of bilateral carpal tunnel release (2017) History of colonoscopy History of lobectomy of lung (12/2016) History of lumbar fusion (2008) History of surgery (1985) History of surgery (2002) History of surgery (2016) Hx of cervical discectomy (03/03/20) Hx of elbow surgery (2009) Hx of fusion of cervical spine (03/16/20) Hx of hand surgery Hx of laminectomy (1981) Hx of LASIK (2000) Social History household members: spouse Smoking Status: Former smoker alcohol intake: current Assessment & Plan Post-op Postoperative Procedures: Procedures Operation Date: 08/24/21 07:45 Actual Procedure Side Surgeon p L2-3, L3-4 TLIF, L4-5 lumbar HWR, exploration of fusion, repeat laminectomy, reinsertion of hardware- Robot Chanel Haywood MD Postoperative day: 1 Postoperative status: marginal pain control Postoperative status narrative: Patient progressing status post surgery, will work on pain control and his nausea and vomiting. Postoperative plan narrative: Mobilize with physical therapy, limit bending, lifting, twisting Multimodal pain management Disposition likely home tomorrow Quality VTE Deep Vein Thrombosis/Pulmonary Embolism Present on Admission: No
[2021-08-25] MEDS: hydrOXYzine pamoate 25 MG CAPSULE PO ×2 (09:24→13:24)
--- NOTE | 2021-08-25 09:57 | PC.NURSE ---
Patient alert, oriented rates back pain 7/10 given 10mg oxycodone and 25mg vistaril for c/o spasms to legs. Patient reports numbness to right mid outer thigh, also reports numbness to left index and left little finger. SANAZ Portillo aware and assessed. No new orders.
--- NOTE | 2021-08-25 10:00 | PT.IIE ---
Current Diagnoses Cauda equina syndrome (08/24/21) Other spondylosis with radiculopathy, lumbosacral region (08/24/21) Spinal stenosis, lumbar region with neurogenic claudication (08/24/21) Arthrodesis status (08/24/21) Surgery Performed Operation Date: 08/24/21 07:45 Actual Procedures p L2-3, L3-4 TLIF, L4-5 lumbar HWR, exploration of fusion, repeat laminectomy, reinsertion of hardware- Robot - Chanel Haywood MD Medical History (Last Reviewed 08/25/21 @ 09:21 by Aguila Portillo PA-C) Arthritis Arthritis of left acromioclavicular joint Cardiomyopathy Chronic low back pain Chronic prostatitis COPD (chronic obstructive pulmonary disease) Cough Discoid lupus Fibromyalgia Former smoker GERD (gastroesophageal reflux disease) HTN (hypertension) Impingement syndrome, shoulder, left Labral tear of left hip joint Lumbar disc disease Lung cancer (12/2016) Neuropathy Osteoarthropathy PAF (paroxysmal atrial fibrillation) (2008) Partial tear of left rotator cuff Pulmonary emphysema Retinopathy RLS (restless legs syndrome) Rosacea Spinal stenosis Subacute cutaneous lupus erythematosus Physical Therapy Inpatient Evaluation/Re-Eval M1 PT/OT-IP Prior Functional Status Start: 08/25/21 12:45 Freq: NEEDED Status: Active Protocol: Document 08/25/21 10:00 AB (Rec: 08/25/21 13:01 AB [email or web address]) Medical Review Prior Functional Status Medical History Reviewed Yes Communication able to make needs known Mobility and Gait pt stated that he is independent with all mobilities and ambulation without AD but has been using a SPC on/off depending on back pain for the last few months Social History Household Members spouse Living Arrangements House Number of Floors (Floors) Two Floors Number of Stairs To Enter/Railing? pt stays on the main level of the house has 3 steps L rail ascending to enter Home Environment High Toilet,Walk in Shower, Built-In Shower Seat Home Equipment Front Wheel Walker,Straight Cane,Raised Toilet Seat w/ Armrests,Hand Held Shower,Long Handled Shoe Horn,Delivery Rn, Grab Bars In Shower M2 PT-IP Current Condition Start: 08/25/21 12:45 Freq: NEEDED Status: Active Protocol: Document 08/25/21 10:00 AB (Rec: 08/25/21 13:01 [email or web address]) Physical Therapy Current Condition Current Condition Evaluation Date 08/25/21 Treatment Diagnosis s/p L2-3, L3-4 TLIF; difficulty in walking Onset Date 08/24/21 M3 PT-IP Subjective Start: 08/25/21 12:45 Freq: NEEDED Status: Active Protocol: Document 08/25/21 10:00 AB (Rec: 08/25/21 13:01 [email or web address]) Subjective Physical Therapy Visit Type Type Initial Evaluation Visit Start Time 10:00 Visit Stop Time 10:35 Total Visit Minutes 35 Number of CLOTHING ROOM SUPERVISOR Visits 0 Physical Therapy Visit Comments Patient Comments agreeable to do PT Therapy Pain Assessment Pain When Pain Assessed At Rest Location Lower Back Intensity 6 Scale Used increases to 10/10 with mobility Pain Behaviors Calling Out,Facial Grimacing, Holding Area,Moaning, Restlessness,Wincing Pain Management Techniques Apply Cold,Distraction, Modification of Treatment,Re- positioning,Timing of Activity with Medications M4 PT-IP Mobility and Gait Start: 08/25/21 12:45 Freq: NEEDED Status: Active Protocol: Document 08/25/21 10:00 AB (Rec: 08/25/21 13:01 [email or web address]) PT-Bed Mobility Assessment Rolling Type of Rolling Log Rolling Level of Assist Minimal Assistance Supine to Sit Supine to Sit Minimal Assistance,Bedrails Scooting Scooting to Edge of Bed Minimal Assistance PT-Transfer Assessment Sit to and From Stand Sit to and from Stand Maximum Assistance,1 Person Assistance,Use of Upper Extremities Equipment Transfer Assistive Device Gait Belt,Front Wheeled Walker Orthotic/Prosthetic Devices or Brace: No Transfers Transfer Destination Chair Transfer Technique Stand Step Pivot Transfer Ability Level of Assist Maximum Assistance,1 Person Assistance,Use of Upper Extremities Comments Mobility Comments reviewed back precautions and log roll bed mobility with pt. pt completed log roll supine to sit min A and cues. requires increase rest breaks in between tasks and c/o increase back pain with mobility to 10/10. pt was able to sit on EOB CGA. completed sit to stand max A and cues and step transfer to chair max A and cues. pt agreed to ambulate and completed sit to stand from chair max A and ambulated in room ~ 20 ft using fWW mod to max a and max cues. pt agreed to stay up on chair. positioned on chair. ice pack provided. call light and table placed within reach. left pt with spouse in room. Gait Assessment Gait Gait Assistance Required: Moderate Assistance,Maximum Assistance Distance (Feet) 20 Able to Maintain Weight Bearing Status Yes During Gait Assistive Devices Assistive Device Gait Belt,Front Wheeled Walker Orthotic/Prosthetic Devices or Brace: No Gait Deviations General Gait Pattern Antalgic,Decreased Stride Length,Decreased Feet Clearance,Step-to Gait Factors Limiting Gait Function Factors Limiting Gait Function Decreased Activity Tolerance, Decreased Strength,Limited Range of Motion,Pain,Poor Balance,Poor Safety Awareness Comments Gait Comments pls refer to mobility section for details PT-Balance Assessment Sitting Balance and Reactions Static Sitting Balance Ability Good Dynamic Sitting Balance Ability Fair Standing Balance and Reactions Static Standing Balance Ability Fair Dynamic Standing Balance Ability Poor Device Used FWW M5 PT-IP Objective Assessments Start: 08/25/21 12:45 Freq: NEEDED Status: Active Protocol: Document 08/25/21 10:00 AB (Rec: 08/25/21 13:[address] [facility] Orientation Orientation/Cognition Level of Alertness Alert Orientation Name,Age,Birthday,Month,Date, Year,Day of Week,Place, Situation Language Function Ability No Deficits Noted Safety Awareness Understands Safety Issues Memory Description No Deficits Noted Gross Range of Motion Lower Extremity ROM Assessment Within Functional Limits Strength Lower Extremity Strength Assessment Bilaterally Impaired Hip 3+/5 Knee 3+/5 Comments Strength Comments pain limiting LE mobility affecting MMT Coordination Assessment Gross Coordination Gross Coordination WNL Sensation Assessment Sensation Sensation Description Numbness Comments Sensation Comments stated slight quads numbness on B Muscle Tone Muscle Tone WNL Yes M6 PT-IP Treatment Start: 08/25/21 12:45 Freq: NEEDED Status: Active Protocol: Document 08/25/21 10:00 AB (Rec: 08/25/21 13:01 [email or web address]) Physical Therapy Treatment Education Education Provided Precautions,Weight Bearing Status,Post-Op Packet,Safety M7 PT-IP Assessment and Plan Start: 08/25/21 12:45 Freq: NEEDED Status: Active Protocol: Document 08/25/21 10:00 AB (Rec: 08/25/21 13:[address] [facility] PT Summary Assessment and Plan Potential Rehabilitation Potential Good Status of Condition at Evaluation Evolving Summary Impairments Pain,ROM,Strength,Balance, Coordination,Sensation,Tone, Cognition,Bed Mobility, Transfers,Gait,Activity Tolerance Assessment Summary pt requiring max A with mobility and c/o increase back pain of 10/10. will continue to assess progress and conduct caregiver training when appropriate as well as stair climbing training. Goals Bed Mobility Goal Standby Assistance Transfer Goal Standby Assistance,Front Wheeled Walker Gait Goal Standby Assistance,Front Wheel Walker Gait Distance 200 Other Goals up/down 3 steps L rail ascending SBA Days to Meet Goals 10 Frequency of Treatment Frequency Of Treatment Twice a Day Treatment Plan Physical Therapy Treatment Plan Bed Mobility Training,Transfer Training,Gait Training, Therapeutic Exercise,Balance Retraining,Post Op Education, Discharge Planning,Hot or Cold Pack,Neuromuscular Re-ed, Coordination Retraining,Manual Therapy Precautions Lumbar Precautions Log Roll,No Twisting,Limit Bending,Lifting Restriction of 10 lbs,Gait Belt above Incisional Area Recommendations To Nursing Amount of Assist Needed 2 Person Assist Discharge Recommendations PT Discharge Recommendations Home with 24/ Assist Available,Home Health Transportation Needs at Discharge Private Vehicle
--- NOTE | 2021-08-25 10:56 | OT.IP.EVAL ---
Current Diagnoses Cauda equina syndrome (08/24/21) Other spondylosis with radiculopathy, lumbosacral region (08/24/21) Spinal stenosis, lumbar region with neurogenic claudication (08/24/21) Arthrodesis status (08/24/21) Surgery Performed Operation Date: 08/24/21 07:45 Actual Procedures p L2-3, L3-4 TLIF, L4-5 lumbar HWR, exploration of fusion, repeat laminectomy, reinsertion of hardware- Robot - Chanel Haywood MD Past Medical History (Last Reviewed 08/25/21 @ 09:21 by Aguila Portillo PA-C) Arthritis Arthritis of left acromioclavicular joint Cardiomyopathy Chronic low back pain Chronic prostatitis COPD (chronic obstructive pulmonary disease) Cough Discoid lupus Fibromyalgia Former smoker GERD (gastroesophageal reflux disease) History of ankle surgery (1994) History of arthroscopy of left shoulder (11/24/20) History of bilateral carpal tunnel release (2017) History of colonoscopy History of lobectomy of lung (12/2016) History of lumbar fusion (2008) History of surgery (1985) History of surgery (2002) History of surgery (2016) HTN (hypertension) Hx of cervical discectomy (03/03/20) Hx of elbow surgery (2009) Hx of fusion of cervical spine (03/16/20) Hx of hand surgery Hx of laminectomy (1981) Hx of LASIK (2000) Impingement syndrome, shoulder, left Labral tear of left hip joint Lumbar disc disease Lung cancer (12/2016) Neuropathy Osteoarthropathy PAF (paroxysmal atrial fibrillation) (2008) Partial tear of left rotator cuff Pulmonary emphysema Retinopathy RLS (restless legs syndrome) Rosacea Spinal stenosis Subacute cutaneous lupus erythematosus Surgical History (Last Reviewed 08/25/21 @ 09:21 by REKHA AustinC) History of ankle surgery (1994) History of arthroscopy of left shoulder (11/24/20) History of bilateral carpal tunnel release (2017) History of colonoscopy History of lobectomy of lung (12/2016) History of lumbar fusion (2008) History of surgery (1985) History of surgery (2002) History of surgery (2016) Hx of cervical discectomy (03/03/20) Hx of elbow surgery (2009) Hx of fusion of cervical spine (03/16/20) Hx of hand surgery Hx of laminectomy (1981) Hx of LASIK (2000) Occupational Therapy Inpatient Evaluation/Re-Eval M1 PT/OT-IP Prior Functional Status Start: 08/25/21 12:29 Freq: NEEDED Status: Active Protocol: Document 08/25/21 10:35 [facility] (Rec: 08/25/21 12:44 [facility] [id number]) Medical Review Prior Functional Status Communication Independent Mobility and Gait Pt limited with mobility due to his pain. Activities of Daily Living and IADL's Pt needing increased time to complete ADL needs due to his pain. Social History Household Members spouse Living Arrangements House Number of Floors (Floors) One Floor Number of Stairs To Enter/Railing? 2 steps with left rail going up. Home Environment Walk in Shower Home Equipment Front Wheel Walker,Straight Cane,Hand Held Shower,Long Handled Shoe Horn,Dog Behaviorist,Grab Bars In Shower Additional Social History Comment Pt has a built in seat but know plans on getting a shower chair. M2 OT-IP Current Condition Start: 08/25/21 12:29 Freq: Status: Active Protocol: Document 08/25/21 10:35 [facility] (Rec: 08/25/21 12:44 [facility] [id number]) Occupational Therapy Current Condition Current Condition Evaluation Date 08/25/21 Treatment Diagnosis S/p L2-3, l3-4 TLIF, L4-5 revision lami, PSF L2-5, decreased mobility. Post Operative Precautions Lumbar Precautions Log Roll,No Twisting,Limit Bending,Lifting Restriction of 10 lbs,Gait Belt above Incisional Area M3 OT- IP Subjective and Pain Start: 08/25/21 12:29 Freq: Status: Active Protocol: Document 08/25/21 10:35 [facility] (Rec: 08/25/21 12:44 [facility] [id number]) OT- Subjective Occupational Therapy Visit Type Type Initial Evaluation Visit Start Time 10:34 Visit Stop Time 10:56 Total Visit Minutes 22 Occupational Therapy Visit Comments Patient Comments Pt just wanting to get back to bed. Patient/Caregiver Goals To go home. OT Pain Assessment Pain When Pain Assessed During Mobility Pain Present Pain Present Pain Reported Location Lower Back Intensity 10 Scale Used Numeric (0 - 10) M4 OT- IP ADL's Start: 08/25/21 12:29 Freq: Status: Active Protocol: Document 08/25/21 10:35 [facility] (Rec: 08/25/21 12:44 [facility] [id number]) OT [id number] Comments OT Self-Feeding Comments Not at meal time. OT ADL-Grooming Comments OT Grooming Comments NOt performed. OT ADL-Oral Care Comments Oral Care Comments Reminded pt best to just spit into a cup for oral care. OT ADL-Dressing General Eval Lower Body Dressing Ability Maximum Assistance OT ADL-Toileting Comments OT Toileting Comments Pt educated on toilet paper aid as has difficulty to reach and does not want his to assist him. OT ADL-Bathing Comments OT Bathing Comments NOt performed. M5 OT- IP IADL's Start: 08/25/21 12:29 Freq: Status: Active Protocol: Document 08/25/21 10:35 [facility] (Rec: 08/25/21 12:44 [facility] [id number]) OT-Instrumental Activities of Daily Living Home Safety Awareness Awareness of Need for Assistance at Home Good Awareness Ability to Problem Solve Emergency Able to Problem Solve Situations M6 OT- IP Functional Cognition Start: 08/25/21 12:29 Freq: Status: Active Protocol: Document 08/25/21 10:35 [facility] (Rec: 08/25/21 12:44 [facility] [id number]) Cognitive Factors Limiting Selfcare Function Cognitive Ability Level of Alertness Alert Patient Orientation Name,Age,Birthday,Month,Date, Year,Day of Week,Place, Situation Attention Span Ability Capable of Focused Attention, Capable of Sustained Attention Ability to Follow Commands Able to Follow One Step Commands Cognitive Comments Cognitive Assessment Comments Pt able to follow commands for back precautions for mobility needs. OT- Vision and Hearing OT- Hearing Assessment OT- Hearing Assessment WFL OT- Vision Assessment Visual Acuity Glasses All The Time M7 OT- IP Mobility and Balance Start: 08/25/21 12:29 Freq: Status: Active Protocol: Document 08/25/21 10:35 [facility] (Rec: 08/25/21 12:44 [facility] [id number]) OT- Bed Mobility Assessment Sit to Supine Sit to Supine Assist Moderate Assistance OT-Transfer Assessment Sit to and From Stand Sit to and from Stand Moderate Assistance,Maximum Assistance,1 Person Assistance Transfers Transfer Ability Moderate Assistance,Maximum Assistance,1 Person Assistance Technique Transfer Destination Bed,Chair Transfer Technique Stand Step Pivot Devices Transfer Assistive Devices Gait Belt,Front Wheeled Walker Comments Mobility Comments MOD/MAX X1 and another person for safety due to pt having extensive pain to stand and transfer back to the bed with FWW. OT- Gait Assessment Comments Gait Ability Comments Transfer only at this time. OT- Balance Assessment Sitting Balance and Reactions Static Sitting Balance Ability Good Dynamic Sitting Balance Ability Fair Standing Balance and Reactions Static Standing Balance Ability Poor M9 OT- IP Assessment and Plan Start: 08/25/21 12:29 Freq: Status: Active Protocol: Document 08/25/21 10:35 [facility] (Rec: 08/25/21 12:44 [facility] [id number]) OT Summary Assessment and Plan Potential Rehabilitation Potential Good Analytic Complexity at Evaluation Low Summary OT Impairments Pain,Functional Mobility, Dressing,Toileting,Bathing, Toilet Transfers,Shower Transfers,Activity Tolerance Progress Towards Goals Slow Progress due to Pain,Slow Progress due to Activity Tolerance Assessment Summary Pt low complexity and main barrier is his pain and therefore now needing extensive assist for ADl and mobility needs. Pt has a supportive and pt states to get a shower chair and toilet paper aid. Pending progress most likely pt to go home with his versus possible short SNF. Goals Grooming Goal Independent Dressing Goal Independent Toileting Goal Minimal Assistance Bathing Goal Independent Toilet Transfer Goal Independent Shower Transfer Goal Independent Patient/Caregiver Education Goal Demonstrate Post-Op Precautions,Caregiver Independent Assisting Patient Days to Meet Goals 7 Frequency of Treatment Frequency Of Treatment Once a Day Treatment Plan OT Treatment Plan ADL Training,Functional Mobility,Patient/Family Education,Discharge Planning Other Treatment Recommendations and Next Stand at sink for grooming Treatment Focus needs. Discharge Recommendations OT Discharge Recommendations Home with Assistance,SNF Rehab ,Home vs SNF Other Discharge Recommendations Pending progress and pain control most likely go home versus SNF. Home Equipment Needs shower chair, toilet paper aid Transportation Needs at Discharge Private Vehicle,Wheelchair/ Cabulance
--- NOTE | 2021-08-25 14:05 | PT.IPTN ---
Current Diagnoses Cauda equina syndrome (08/24/21) Other spondylosis with radiculopathy, lumbosacral region (08/24/21) Spinal stenosis, lumbar region with neurogenic claudication (08/24/21) Arthrodesis status (08/24/21) Surgery Performed Operation Date: 08/24/21 07:45 Actual Procedures p L2-3, L3-4 TLIF, L4-5 lumbar HWR, exploration of fusion, repeat laminectomy, reinsertion of hardware- Daron - Chanel Haywood MD Physical Therapy Treatment Note M2 PT-IP Current Condition Start: 08/25/21 12:45 Freq: NEEDED Status: Active Protocol: Document 08/25/21 10:00 [facility] (Rec: 08/25/21 13:01 AB [id number]) Physical Therapy Current Condition Current Condition Evaluation Date 08/25/21 Treatment Diagnosis s/p L2-3, L3-4 TLIF; difficulty in walking Onset Date 08/24/21 M3 PT-IP Subjective Start: 08/25/21 12:45 Freq: NEEDED Status: Active Protocol: Document 08/25/21 14:05 [facility] (Rec: 08/25/21 14:35 AB [id number]) Subjective Physical Therapy Visit Type Type Treatment Note Visit Start Time 14:05 Visit Stop Time 14:25 Total Visit Minutes 20 Number of REELING AND TUBING MACHINE OPERATOR Visits 0 Physical Therapy Visit Comments Patient Comments agreeable to do PT Therapy Pain Assessment Pain When Pain Assessed At Rest Pain Present Pain Present Pain Reported Location Lower Back Scale Used increase with mobility; pain scale not stated Pain Management Techniques Apply Cold,Distraction, Modification of Treatment,Re- positioning,Timing of Activity with Medications M4 PT-IP Mobility and Gait Start: 08/25/21 12:45 Freq: NEEDED Status: Active Protocol: Document 08/25/21 14:05 AB (Rec: 08/25/21 14:35 AB [id number]) PT-Bed Mobility Assessment Rolling Type of Rolling Log Rolling Level of Assist Standby Assistance Supine to Sit Supine to Sit Standby Assistance,1 Person Assistance,Bedrails Sit to Supine Sit to Supine Standby Assistance,1 Person Assistance,Bedrails PT-Transfer Assessment Sit to and From Stand Sit to and from Stand Maximum Assistance,1 Person Assistance,Use of Upper Extremities Equipment Transfer Assistive Device Gait Belt,Front Wheeled Walker Orthotic/Prosthetic Devices or Brace: No Comments Mobility Comments pt supine in bed and agreed to do PT. completed log roll supine to sit SBA with use of bed rail to assist. spouse stated that pt will use a recliner to sleep on during the first few days. pt can be impulsive. cued for deep breathing and to slow down for safety. completed sit to stand max A and max cues. ambulated in room using FWW max A and cues ~ 25 ft. (+) slight buckling on L knee. pt stated that he has burning pain on L thigh area. pt requested to go back to bed . completed sit to supine using bed rail SBA. positioned in bed. call light and table placed within reach . ice pack positioned. left pt with spouse in room. Gait Assessment Gait Gait Assistance Required: Maximum Assistance,1 Person Assist Distance (Feet) 25 Able to Maintain Weight Bearing Status Yes During Gait Assistive Devices Assistive Device Gait Belt,Front Wheeled Walker Orthotic/Prosthetic Devices or Brace: No Gait Deviations General Gait Pattern Antalgic,Decreased Stride Length,Decreased Feet Clearance,Step-to Gait Factors Limiting Gait Function Factors Limiting Gait Function Decreased Activity Tolerance, Decreased Sensation,Decreased Strength,Limited Range of Motion,Pain,Poor Balance,Poor Safety Awareness M5 PT-IP Objective Assessments Start: 08/25/21 12:45 Freq: NEEDED Status: Active Protocol: Document 08/25/21 10:00 AB (Rec: 08/25/21 13:01 [email or web address]) Orientation Orientation/Cognition Level of Alertness Alert Orientation Name,Age,Birthday,Month,Date, Year,Day of Week,Place, Situation Language Function Ability No Deficits Noted Safety Awareness Understands Safety Issues Memory Description No Deficits Noted Gross Range of Motion Lower Extremity ROM Assessment Within Functional Limits Strength Lower Extremity Strength Assessment Bilaterally Impaired Hip 3+/5 Knee 3+/5 Comments Strength Comments pain limiting LE mobility affecting MMT Coordination Assessment Gross Coordination Gross Coordination WNL Sensation Assessment Sensation Sensation Description Numbness Comments Sensation Comments stated slight quads numbness on B Muscle Tone Muscle Tone WNL Yes M6 PT-IP Treatment Start: 08/25/21 12:45 Freq: NEEDED Status: Active Protocol: Document 08/25/21 14:05 AB (Rec: 08/25/21 14:35 AB [email or web address]) Physical Therapy Treatment Education Education Provided Safety M7 PT-IP Assessment and Plan Start: 08/25/21 12:45 Freq: NEEDED Status: Active Protocol: Document 08/25/21 14:05 AB (Rec: 08/25/21 14:35 AB [id number]) PT Summary Assessment and Plan Potential Rehabilitation Potential Good Summary Impairments Pain Progress Towards Goals Slow Progress due to Pain Assessment Summary pt continues to c/o increase pain with buring pain on L thigh are with (+) slight knee buckling during ambulation requiring max A and max cues. Caregiver training set up for tomorrow at 9am. will continue to assess progress. Goals Bed Mobility Goal Standby Assistance Transfer Goal Standby Assistance,Front Wheeled Walker Gait Goal Standby Assistance,Front Wheel Walker Gait Distance 200 Other Goals up/down 3 steps L rail ascending SBA Days to Meet Goals 10 Frequency of Treatment Frequency Of Treatment Twice a Day Treatment Plan Physical Therapy Treatment Plan Bed Mobility Training,Transfer Training,Gait Training, Therapeutic Exercise,Balance Retraining,Post Op Education, Discharge Planning,Hot or Cold Pack,Neuromuscular Re-ed, Coordination Retraining,Manual Therapy Precautions Lumbar Precautions Log Roll,No Twisting,Limit Bending,Lifting Restriction of 10 lbs,Gait Belt above Incisional Area Recommendations To Nursing Amount of Assist Needed 1 Person Assist Discharge Recommendations PT Discharge Recommendations Home with 15/04 Assist Available,Home Health Transportation Needs at Discharge Private Vehicle
--- NOTE | 2021-08-25 15:04 | CM.DANOTE ---
Discharge Assessment. Patient is 55yo Male who is admitted after spinal surgery (TLIF) performed by Dr. Haywood. KILN TENDER met with patient and patient's spouse at bedside; both reported having ordered necessary DME to include elevated toilet seat, FWW, shower seat, toileting tool for wiping, and patient stated he may sleep in his recliner until he is able to navigate in/out of bed. Patient reported being fully independent at baseline with 3 stairs to enter house which he expects PT will work with him on prior to discharge. Patient's reports she works from home and is able to assist patient with ADLs as needed and she will be patient's transportation home at time of discharge. INS: [employer] P: patient is anticipated to discharge home once medically stabilized. No identified discharge planning needs at this time. CM will continue to follow patient throughout clinical course of admission. Secondary plan will be home with HH. Robert MANCILLA Discharge Planning/Care Management CM Discharge Assessment Start: 08/25/21 14:56 Freq: Status: Active Protocol: Document 08/25/21 14:56 SID (Rec: 08/25/21 15:03 SID [id number]) Discharge Planning Assessment Assigned Open Cut Examiner Robert MANCILLA DPOA/Assigned Designee Name [place] (spouse) Contact Information [phone] Advance Directives? No History Provided By Patient,Significant Other, Medical Record Has Patient been admitted in last 30 No days? Prior Living Arrangements House Household Members spouse Type of transporation used prior to Drives own vehicle admit Independent with ADL's Yes Is patient alert and oriented? Yes Caregiver for Another No DME Already Rented / Owned Bath Bench,Elevated Toilet Seat,FWW / Walker,Cane Barriers to Discharge No Discharge Plan Home Transportation Arrangement Family will transport Referrals Initiated None needed Whiteboard Updated in Patient Room with Yes name and ext. # of Open Cut Examiner Review Status In Process Next Review Type Continued Stay Review Pre-Anesthesia Assessment Start: 08/22/21 13:28 Freq: Status: Complete Protocol: Document 08/22/21 13:28 CAB (Rec: 08/22/21 14:48 CAB [id number]) Pre-Anesthesia Assessment Preferred Name Mario Patient Information Reviewed Via Phone Assessment Assessment Completed With Patient Diagnostic Results BMP/CMP,CBC,EKG Comment Outside Labs/EKG scanned, COVID screen @ 08/21/21 Negative Primary Care Provider Aparna Fofana Seen Specialist in Last 12 Months Yes Specialist Seen Orthopedist Primary Language Lithuanian Preferred Language Lithuanian Welding Specialist Required No Height 180.34 cm Weight 111.584 kg Body Mass Index (BMI) 34.2 Hearing Ability Normal Visual Assist Glasses Dentition Type Teeth, Natural Present,Teeth, Missing Barriers to Learning None Other Aids No Hx Anesthesia Reactions No: Extreme PONV s/p 03/03/21 Additional comment LLL lobectomy Hx Family Anesthesia Reaction No Hx Malignant Hyperthermia No Hx Blood Transfusions No Hx Blood Transfusion Reaction No Anesthesia Review Requested No Dude Wrangler No alcohol intake current alcohol intake frequency a few times a week Smoking Status Former smoker Tobacco type cigarettes how long ago did patient quit smoking Quit 2017, 35 pk year history Substance Use Type does not use Pain Present Pain Reported Musculoskeletal Symptoms Abnormal Gait,Back Pain, Difficulty Walking,Muscle Weakness,Numbness History of Falling (Recent or History of No ) Patient is completely paralyzed or No completely immobile Prosthesis or Orthotic Device Cane Mental Status Oriented to own ability Comment Balance issues Is patient on oxygen? No Does patient have CAMERON/SOB Yes: CAMERON Hx Sleep Apnea No CPAP/BIPAP use not prescribed Currently Taking a Beta Lexx Yes: Carvedilol Can You Climb a Flight of Stairs Without Yes SOB Hx Chest Pain No Hx SOB No: CAMERON Hx Syncope or Dizziness No Anti-Coagulant Therapy No Has a Sound Effects Technician Yes[facility] Cardiac Testing Yes: Nuc scan 12/07/19 @ [facility] EF 69% Hx Pacemaker/ICD No Pacemaker Rep Required? No Diet Type At Home Regular dysphagia No Urinary Catheter Present No Hx Urinary Self Catheterization No Diabetes No Presence of External or Internal Medical Yes: Lumbar, left elbow Devices hardware, C4,5,6 hardware Have you had any close contact with No someone diagnosed with COVID-19? Received a COVID vaccine? Yes Received all doses? Yes Marital Status Lives With spouse Prior Living Arrangements House Number of Floors (Floors) Two Floors Support System Spouse Does the Patient Have Assistance After Yes Surgery Patient Discharge Plan Description Return Home Comment Pt advised 2 day length of stay per surgeon Feels Safe in Current Environment Yes Been Physically Hurt or Threatened By a No Person in Current Environment Do you have thoughts of harming yourself None or others? Are you currently considering suicide? No Do you have a plan to hurt yourself or No Plan others? Do You Have Any Spiritual Beliefs That No May Affect Your HC Choices? Do You Have Any Cultural Practices That No May Affect Your HC Choices? Comment Church Who Can We Speak to About Patient's Care Family, friends Identifying Code for Release of Patient Declines to issue Information Health Care Proxy/Next of Kin [place] () Health Care Proxy Emergency Contact Name [place] () Enmanuel (daughter ) Emergency Contact Phone Number [place]: [phone] [place]: [phone] Advance Directives? No Power of Truck Chauffeur No PAC Instructions Do not shave/clip surgical site,Durable medical equipment ,Medications to take/avoid, Nasal antibiotic,No ETOH/ petroleum product on skin DOS, NPO,Post-op transportation,Pre -surgical wash,Sturdy shoes/ comfortable clothes,Do not bring valuables and remove jewelry
[2021-08-25] MEDS: ATORVASTATIN 20 MG TABLET PO (20:39)
[2021-08-25] MEDS: SENNOSIDES 8.6 MG TABLET 17.2 MG PO (20:39)
[2021-08-25] MEDS: ACETAMINOPHEN 325 MG TABLET 650 MG PO (20:40)
[2021-08-26] VITALS (13 sets, daily range): BP systolic 88–121; BP diastolic 41–60; PULSE 64–103; RESP 16–18; TEMP 37.1–37.8; O2SAT 89–97
[2021-08-26] MEDS: OXYCODONE IR 5 MG TABLET 10 MG PO ×7 (01:02→23:55)
[2021-08-26] MEDS: HYDROMORPHONE 0.5 MG INJ IV ×3 (04:44→09:52)
[2021-08-26] MEDS: PANTOPRAZOLE DR 40 MG TABLET PO (07:00)
[2021-08-26] MEDS: SODIUM CHLORIDE 0.9% FLUSH 10 ML IV ×3 (07:02→09:54)
[2021-08-26] MEDS: hydrOXYzine pamoate 25 MG CAPSULE PO ×2 (08:57→21:02)
--- NOTE | 2021-08-26 09:33 | PT.IPTN ---
Current Diagnoses Cauda equina syndrome (08/24/21) Other spondylosis with radiculopathy, lumbosacral region (08/24/21) Spinal stenosis, lumbar region with neurogenic claudication (08/24/21) Arthrodesis status (08/24/21) Surgery Performed Operation Date: 08/24/21 07:45 Actual Procedures p L2-3, L3-4 TLIF, L4-5 lumbar HWR, exploration of fusion, repeat laminectomy, reinsertion of hardware- Daron - Chanel Haywood MD Physical Therapy Treatment Note M2 PT-IP Current Condition Start: 08/25/21 12:45 Freq: NEEDED Status: Active Protocol: Document 08/25/21 10:00 AB (Rec: 08/25/21 13:01 AB [id number]) Physical Therapy Current Condition Current Condition Evaluation Date 08/25/21 Treatment Diagnosis s/p L2-3, L3-4 TLIF; difficulty in walking Onset Date 08/24/21 M3 PT-IP Subjective Start: 08/25/21 12:45 Freq: NEEDED Status: Active Protocol: Document 08/26/21 09:09 KS (Rec: 08/26/21 12:18 KS [id number]) Subjective Physical Therapy Visit Type Type Treatment Note Visit Start Time 09:09 Visit Stop Time 09:33 Total Visit Minutes 24 Number of TECHNICAL AIDE Visits 1 Physical Therapy Visit Comments Patient Comments agreeable to do PT M4 PT-IP Mobility and Gait Start: 08/25/21 12:45 Freq: NEEDED Status: Active Protocol: Document 08/26/21 09:09 KS (Rec: 08/26/21 12:18 KS [id number]) PT-Bed Mobility Assessment Rolling Type of Rolling Log Rolling Level of Assist Standby Assistance Supine to Sit Supine to Sit Standby Assistance,1 Person Assistance,Bedrails Sit to Supine Sit to Supine Contact Guard Assistance,1 Person Assistance,Bedrails PT-Transfer Assessment Sit to and From Stand Sit to and from Stand Contact Guard Assistance,1 Person Assistance,Use of Upper Extremities Equipment Transfer Assistive Device Gait Belt,Front Wheeled Walker Orthotic/Prosthetic Devices or Brace: No Transfers Transfer Destination Bed Transfer Technique Pt ambulated w/ FWW Transfer Ability Level of Assist Contact Guard Assistance, Minimal Assistance,1 Person Assistance,Use of Upper Extremities Comments Mobility Comments Pt in bed upon arrival from therapy w/ in room. Able to recall 2/3 precautions (no lifting). Initiated caregiver training demonstrating to correct application of gait belt and assit for logroll, sidelying<>sit, and sit<>stand w/ FWW. Pt SBA for logroll, and sidelying<>sit w/ cues, CGA for sit<>stand w/ FWW. Pt w/ heavy reliance on BUE when sit<>Stand and during ambulation. Pt ambulated ~50 ft towards stairs but requested to turn around due to BUE fatigue from heavy weight bearing on FWW. Pt returned to room and bed CGA. Pt left in bed w/ all needs in reach and alarm on. Gait Assessment Gait Gait Assistance Required: Contact Guard Assist,1 Person Assist Distance (Feet) 50 Able to Maintain Weight Bearing Status Yes During Gait Assistive Devices Assistive Device Gait Belt,Front Wheeled Walker Orthotic/Prosthetic Devices or Brace: No Gait Deviations General Gait Pattern Antalgic,Decreased Stride Length,Decreased Feet Clearance,Step-to Gait Factors Limiting Gait Function Factors Limiting Gait Function Decreased Activity Tolerance, Decreased Sensation,Decreased Strength,Limited Range of Motion,Pain,Poor Balance,Poor Safety Awareness Comments Gait Comments Ambulated ~50 ft w/ FWW CGA, heavy use of BUE for support on FWW and fatigued quickly. Stair Climbing Assessment Comments Stair Climbing Comments Not assessed, will plan to w/c transport pt to [facility] for energy conservation this PM to complete stair training prior to d/c. PT-Balance Assessment Sitting Balance and Reactions Static Sitting Balance Ability Good Dynamic Sitting Balance Ability Fair Standing Balance and Reactions Static Standing Balance Ability Fair Dynamic Standing Balance Ability Fair Device Used FWW M5 PT-IP Objective Assessments Start: 08/25/21 12:45 Freq: NEEDED Status: Active Protocol: Document 08/25/21 10:00 AB (Rec: 08/25/21 13:01 AB [id number]) Orientation Orientation/Cognition Level of Alertness Alert Orientation Name,Age,Birthday,Month,Date, Year,Day of Week,Place, Situation Language Function Ability No Deficits Noted Safety Awareness Understands Safety Issues Memory Description No Deficits Noted Gross Range of Motion Lower Extremity ROM Assessment Within Functional Limits Strength Lower Extremity Strength Assessment Bilaterally Impaired Hip 3+/5 Knee 3+/5 Comments Strength Comments pain limiting LE mobility affecting MMT Coordination Assessment Gross Coordination Gross Coordination WNL Sensation Assessment Sensation Sensation Description Numbness Comments Sensation Comments stated slight quads numbness on B Muscle Tone Muscle Tone WNL Yes M6 PT-IP Treatment Start: 08/25/21 12:45 Freq: NEEDED Status: Active Protocol: Document 08/26/21 09:09 KS (Rec: 08/26/21 12:18 KS [id number]) Physical Therapy Treatment Education Education Provided Precautions,Safety M7 PT-IP Assessment and Plan Start: 08/25/21 12:45 Freq: NEEDED Status: Active Protocol: Document 08/26/21 09:09 KS (Rec: 08/26/21 12:18 KS [id number]) PT Summary Assessment and Plan Potential Rehabilitation Potential Good Summary Impairments Pain Progress Towards Goals Slow Progress due to Pain Assessment Summary Pt continues to be limited in mobility due to high level of pain. SBA to CGA for bed mobility and transfers, CGA for ~50 ft ambulation w/ FWW but unable to tolerate more due to BUE pain and fatigue from heavy weight bearing on BUE when using FWW. Initiated caregiver training by demonstrating gait belt application, logroll, and sup< >Sit, sit<>Stand w/ FWW to pts but will need to review and conduct ambulation w/ FWW and stair training prior to d/ c. Depending on preogress, pt may be able to go home w/ successful stair training and completion of caregiver training. Goals Bed Mobility Goal Standby Assistance Transfer Goal Standby Assistance,Front Wheeled Walker Gait Goal Standby Assistance,Front Wheel Walker Gait Distance 200 Other Goals up/down 3 steps L rail ascending SBA Days to Meet Goals 10 Frequency of Treatment Frequency Of Treatment Twice a Day Treatment Plan Physical Therapy Treatment Plan Bed Mobility Training,Transfer Training,Gait Training, Therapeutic Exercise,Balance Retraining,Post Op Education, Discharge Planning,Hot or Cold Pack,Neuromuscular Re-ed, Coordination Retraining,Manual Therapy Precautions Lumbar Precautions Log Roll,No Twisting,Limit Bending,Lifting Restriction of 10 lbs,Gait Belt above Incisional Area Recommendations To Nursing Amount of Assist Needed 1 Person Assist Discharge Recommendations PT Discharge Recommendations Home with 15/04 Assist Available,Home Health Transportation Needs at Discharge Private Vehicle
[2021-08-26] MEDS: carvediloL 12.5 MG TABLET 25 MG PO (09:52)
[2021-08-26] MEDS: DOCUSATE 100 MG CAPSULE PO ×2 (09:52→21:02)
[2021-08-26] MEDS: FISH OIL 1,000 MG CAPSULE 1000 MG PO (09:52)
[2021-08-26] MEDS: MULTIVITAMIN 1 TABLET 1 TAB PO (09:52)
[2021-08-26] MEDS: predniSONE 5 MG TABLET PO (09:52)
[2021-08-26] MEDS: FUROSEMIDE 20 MG TABLET PO (09:53)
[2021-08-26] MEDS: azaTHIOprine 50 MG TABLET 150 MG PO (09:53)
[2021-08-26] MEDS: HYDROXYCHLOROQUINE 200 MG TABLET 400 MG PO (09:53)
--- NOTE | 2021-08-26 09:59 | P.DS_ITS ---
History of Present Illness History of Present Illness Date Patient Seen: 08/26/21 Time Patient Seen: 09:59 Chief complaint: Back pain Narrative: Pain is moderate to severe. Denies fever or chills. No nausea or vomiting. Still having some burning pain in the left lateral thigh. The numbness and tingling in the left 4th and 5th fingers has resolved. Discharge Providers Provider Date of admission: 08/24/21 06:33 Discharge Date: 08/26/21 Primary care physician: Aparna Fofana MD Consults: 08/24/21 15:35 Consult to Occupational Therapy Evaluate & Treat Comment: Physician Instructions: Evaluate and treat Consult to Physical Therapy Evaluate & Treat Comment: Physician Instructions: Evaluate and Treat Discharge provider: Aguila Portillo PA-C Summary Hospital Course Discharge Diagnosis: 1. L2-3, L3-4 spinal stenosis 2. L4-5 history of fusion with hardware 3. L2-3, L3-4 spondylolisthesis Hospital Course: ?L2-3, L3-4 posterolateral and posterior interbody fusion 2.? L2-3, L3-4 posterior interbody cage placement 3. L4-5 posterior non-segmental instrumentation removal 4. L4-5 revision laminectomy with exploration of fusion 5. L2-3, L3-4 posterior segmental instrumentation with pedicle screw placement 6. L4-5 posterolatearl fusion 7. Grafton of bone marrow from iliac crest through a separate incision 8. Utilization of microsurgical technique and operating microscope 9. Robotic assisted navigation surgery Same procedure as scheduled: Yes Indications: Patient has been having chronic back pain and worsening lumbar radiculopathy. Patient had retained hardware from prior fusion surgery in 2008. Patient failed multiple conservative management with worsening pain weakness and numbness in his lower extremity.? Patient has been having difficulty performing activity of daily living.? After discussing risks benefits of treatment options, patient elected proceed with surgery. Surgeon: Chanel Haywood Chlorobutadiene Scrubber Operator: Lisa Wise Click Yes if Unassisted: No Anesthesia Type: General Operative Notes Closure Type: primary Specimen(s): none sent Prosthetic devices, grafts, tissues, transplants, or devices: Globus CREO MIS screws, Rise cages Applied: catheter Estimated Blood Loss (mL): 150 Blood products transfused: none Patient admitted to the hospital for the above-mentioned procedure. Patient consented to the same. Patient taken to the operating room on August 24, 2021. Patient back in his room recovering well as in stable condition. Patient will be discharged home today after physical therapy if safe for home environment. Exam Vital Signs (past 8 hours): - 08/26/21 06:00 08/26/21 09:52 08/26/21 09:53 Temperature 100.1 F H Pulse Rate 103 H 89 89 Respiratory Rate 16 Blood Pressure 101/52 L 116/60 116/60 Pulse Oximetry 95 Oxygen Delivery Method Room Air Oxygen Flow Rate 0 Narrative Exam Narrative: 55-year-old male resting comfortably in bed in no apparent distress. Dressing is Clean, dry, intact.. Motor functions intact bilateral lower extremities. Sensation grossly intact to light touch bilateral lower extremities. Objective Labs Result Diagrams: 08/25/21 06:25 [facility] Medical History Arthritis Arthritis of left acromioclavicular joint Cardiomyopathy Chronic low back pain Chronic prostatitis COPD (chronic obstructive pulmonary disease) Cough Discoid lupus Fibromyalgia Former smoker GERD (gastroesophageal reflux disease) HTN (hypertension) Impingement syndrome, shoulder, left Labral tear of left hip joint Lumbar disc disease Lung cancer (12/2016) Neuropathy Osteoarthropathy PAF (paroxysmal atrial fibrillation) (2008) Partial tear of left rotator cuff Pulmonary emphysema Retinopathy RLS (restless legs syndrome) Rosacea Spinal stenosis Subacute cutaneous lupus erythematosus Surgical History History of ankle surgery (1994) History of arthroscopy of left shoulder (11/24/20) History of bilateral carpal tunnel release (2017) History of colonoscopy History of lobectomy of lung (12/2016) History of lumbar fusion (2008) History of surgery (1985) History of surgery (2002) History of surgery (2016) Hx of cervical discectomy (03/03/20) Hx of elbow surgery (2009) Hx of fusion of cervical spine (03/16/20) Hx of hand surgery Hx of laminectomy (1981) Hx of LASIK (2000) Social History household members: spouse Smoking Status: Former smoker alcohol intake: current Discharge Assessment & Plan Assessment and Plan Assessment: Patient progressing as expected Plan of Treatment: Discharge home today after physical therapy if safe for home environment Discharge Plan Discharge Plan Patient Disposition: Home Discharge orders & Medications Prescriptions: New acetaminophen 325 mg Tablet 650 mg PO Q6HR PRN (Reason: Pain, Mild (1-3)) Qty: 60 0RF docusate sodium 100 mg Capsule 100 mg PO BID Qty: 20 0RF oxycodone 5 mg Tablet 10 mg PO Q3HR PRN (Reason: Pain, Severe (7-10)) Qty: 60 0RF hydroxyzine pamoate 25 mg Capsule 25 mg PO Q4HR PRN (Reason: Nausea And Vomiting) Qty: 30 0RF hydromorphone [Dilaudid] 2 mg tablet 2 mg PO Q6H PRN (Reason: pain) Qty: 20 0RF Rx Instructions: Take 1 tablet every 6 hours as needed for breakthrough pain Continued albuterol 90 mcg/actuation Aerosol 180 mcg INHALATION Q4-6H PRN (Reason: Shortness Of Breath) 0RF desonide 0.05 % Cream 1 applic TOPICAL QD-BID PRN (Reason: Itching) 0RF hydroxychloroquine [Plaquenil] 200 mg Tablet 400 mg PO DAILY 0RF carvedilol 25 mg Tablet 25 mg PO BID 0RF prednisone 5 mg Tablet 5 mg PO DAILY 0RF azathioprine [Imuran] 50 mg Tablet 150 mg PO DAILY 0RF omeprazole 40 mg Capsule,Delayed Release(Dr/Ec) 40 mg PO DAILY 0RF lisinopril 5 mg Tablet 5 mg PO BID 0RF multivitamin Capsule 1 cap PO DAILY 0RF omega [id number]-fish oil [Fish Oil] 1,000 mg (120 mg-180 mg) Capsule 1 cap PO DAILY 0RF Spiriva Respimat 2.5 mcg/actuation Mist 1 puff INHALATION BID 0RF furosemide 20 mg Tablet 20 mg PO QAM 0RF atorvastatin 20 mg Tablet 20 mg PO BEDTIME 0RF Discontinued diclofenac sodium 50 mg Tablet,Delayed Release (Dr/Ec) 50 mg PO BID 0RF oxycodone-acetaminophen [Percocet] 5-325 mg tablet 2 tab PO Q4-6H PRN (Reason: pain) Qty: 60 0RF Follow up/Referrals: Chanel Haywood MD [Physician] - (2 weeks) Aparna Fofana MD [Primary Care Provider] - Diet/Activity/Treatments Diet: Diet as Tolerated Activity: Limit bending, lifting, twisting Cold/Heat Therapy: Ice to back as needed Skin/Wound/Dressing Care Report to your healthcare provider any signs of infection, such as:: chills, fever, increased pain, unusual drainage and unusual redness Dressing: Keep dressing clean and dry Visit Report/Discharge Packet Instructions: DI for Heart Failure, DI for Prescription Opioid Use, DI for Transforaminal Lumbar Interbody Fusion Stand Alone Forms: Surgery Discharge Discharge Data Primary Care Provider: Aparna Fofana VTE Deep Vein Thrombosis/Pulmonary Embolism Present on Admission: No
--- NOTE | 2021-08-26 10:30 | OT.IPNOTE ---
Pt just received pain medications and requesting OT to come back in an hour in order to try showering for caregiver training.
--- NOTE | 2021-08-26 12:03 | OT.IP.TRT ---
Current Diagnoses Cauda equina syndrome (08/24/21) Other spondylosis with radiculopathy, lumbosacral region (08/24/21) Spinal stenosis, lumbar region with neurogenic claudication (08/24/21) Arthrodesis status (08/24/21) Surgery Performed Operation Date: 08/24/21 07:45 Actual Procedures p L2-3, L3-4 TLIF, L4-5 lumbar HWR, exploration of fusion, repeat laminectomy, reinsertion of hardware- Robot - Chanel Haywood MD Occupational Therapy Treatment Note M2 OT-IP Current Condition Start: 08/25/21 12:29 Freq: Status: Active Protocol: Document 08/25/21 10:35 [facility] (Rec: 08/25/21 12:44 [facility] [id number]) Occupational Therapy Current Condition Current Condition Evaluation Date 08/25/21 Treatment Diagnosis S/p L2-3, l3-4 TLIF, L4-5 revsion lami, PSF L2-5, decreased mobility. Post Operative Precautions Lumbar Precautions Log Roll,No Twisting,Limit Bending,Lifting Restriction of 10 lbs,Gait Belt above Incisional Area M3 OT- IP Subjective and Pain Start: 08/25/21 12:29 Freq: Status: Active Protocol: Document 08/26/21 12:03 [facility] (Rec: 08/26/21 12:12 [facility] [id number]) OT- Subjective Occupational Therapy Visit Type Type Treatment Note Visit Start Time 11:30 Visit Stop Time 12:02 Total Visit Minutes 32 Occupational Therapy Visit Comments Patient Comments Pt agreed to take a shower. Patient/Caregiver Goals TO go home. OT Pain Assessment Pain When Pain Assessed During Mobility Pain Present Pain Present Pain Reported M4 OT- IP ADL's Start: 08/25/21 12:29 Freq: Status: Active Protocol: Document 08/26/21 12:03 [facility] (Rec: 08/26/21 12:12 [facility] [id number]) OT ADL-Dressing General Eval Lower Body Dressing Ability Maximum Assistance Comments OT Dressing Comments Due to pain and fatigue, pt able to assist for his LB dressing needs. Able to educated to anibal all clothing over his feet first, therefore just having to stand up one time in order to get his underwear and pants on. OT ADL-Bathing Bathing Type Bathing Type Shower General Evaluation Bathing Ability Moderate Assistance Areas Needing Assistance Wash/Dry Back,Wash/Dry Perineal Area,Wash/Dry Lower Extremities Comments OT Bathing Comments Pt's able to safely assist pt for all bathing needs. M5 OT- IP IADL's Start: 08/25/21 12:29 Freq: Status: Active Protocol: Document 08/25/21 10:35 [facility] (Rec: 08/25/21 12:44 [facility] [id number]) OT-Instrumental Activities of Daily Living Home Safety Awareness Awareness of Need for Assistance at Home Good Awareness Ability to Problem Solve Emergency Able to Problem Solve Situations M6 OT- IP Functional Cognition Start: 08/25/21 12:29 Freq: Status: Active Protocol: Document 08/26/21 12:03 [facility] (Rec: 08/26/21 12:12 [facility] [id number]) Cognitive Factors Limiting Selfcare Function Cognitive Ability Level of Alertness Alert Patient Orientation Name,Age,Birthday,Month,Date, Year,Day of Week,Place, Situation Attention Span Ability Capable of Focused Attention, Capable of Sustained Attention Ability to Follow Commands Able to Follow One Step Commands Safety Awareness Decreased Ability to Apply Precautions,Underestimates Need for Assistance Cognitive Comments Cognitive Assessment Comments Pt tends to be a bit impulsive and needing cues to slow down . Pt also needing vc to follow his back precautions. Pt tends to direct his care. M7 OT- IP Mobility and Balance Start: 08/25/21 12:29 Freq: Status: Active Protocol: Document 08/26/21 12:03 [facility] (Rec: 08/26/21 12:12 [facility] [id number]) OT-Transfer Assessment Sit to and From Stand Sit to and from Stand Moderate Assistance Transfers Transfer Ability Minimal Assistance,Moderate Assistance Technique Transfer Destination Chair Transfer Technique Stand Step Pivot Devices Transfer Assistive Devices Gait Belt,Front Wheeled Walker Comments Mobility Comments MODA to stand to FWW and PAPA with transfer and MODA to help step over the threshold of the shower. Able to educated pt's how to anibal/doff the gait belt. OT- Balance Assessment Sitting Balance and Reactions Static Sitting Balance Ability Good Dynamic Sitting Balance Ability Fair Standing Balance and Reactions Static Standing Balance Ability Fair M9 OT- IP Assessment and Plan Start: 08/25/21 12:29 Freq: Status: Active Protocol: Document 08/26/21 12:03 [facility] (Rec: 08/26/21 12:12 [facility] [id number]) OT Summary Assessment and Plan Potential Rehabilitation Potential Good Analytic Complexity at Evaluation Low Summary OT Impairments Pain,Functional Mobility, Dressing,Toileting,Bathing, Toilet Transfers,Shower Transfers,Activity Tolerance Progress Towards Goals Progressing Toward Goals Assessment Summary Pt's able to assist pt for all ADl and bed mobility need with good safety. Pt looking to go home when medically stable and pt's to assist pt for all needs. Pending completion of caregiver training for the steps with pt by PT, pt most likely to go home. Goals Grooming Goal Independent Dressing Goal Independent Toileting Goal Minimal Assistance Bathing Goal Independent Toilet Transfer Goal Independent Shower Transfer Goal Independent Patient/Caregiver Education Goal Demonstrate Post-Op Precautions,Caregiver Independent Assisting Patient Days to Meet Goals 6 Frequency of Treatment Frequency Of Treatment Once a Day Treatment Plan OT Treatment Plan ADL Training,Functional Mobility,Patient/Family Education,Discharge Planning Discharge Recommendations OT Discharge Recommendations Home with 15/04 Assist Available,SNF Rehab,Home vs SNF Home Equipment Needs shower chair, toilet paper aid Transportation Needs at Discharge Private Vehicle,Wheelchair/ Cabulance
--- NOTE | 2021-08-26 14:48 | PT.IPTN ---
Current Diagnoses Cauda equina syndrome (08/24/21) Other spondylosis with radiculopathy, lumbosacral region (08/24/21) Spinal stenosis, lumbar region with neurogenic claudication (08/24/21) Arthrodesis status (08/24/21) Surgery Performed Operation Date: 08/24/21 07:45 Actual Procedures p L2-3, L3-4 TLIF, L4-5 lumbar HWR, exploration of fusion, repeat laminectomy, reinsertion of hardware- Robot - Chanel Haywood MD Physical Therapy Treatment Note M2 PT-IP Current Condition Start: 08/25/21 12:45 Freq: NEEDED Status: Active Protocol: Document 08/25/21 10:00 AB (Rec: 08/25/21 13:01 AB [id number]) Physical Therapy Current Condition Current Condition Evaluation Date 08/25/21 Treatment Diagnosis s/p L2-3, L3-4 TLIF; difficulty in walking Onset Date 08/24/21 M3 PT-IP Subjective Start: 08/25/21 12:45 Freq: NEEDED Status: Active Protocol: Document 08/26/21 13:05 AB (Rec: 08/26/21 14:48 AB [id number]) Subjective Physical Therapy Visit Type Type Treatment Note Visit Start Time 13:05 Visit Stop Time 13:32 Total Visit Minutes 27 Number of STRIPER Visits 0 Physical Therapy Visit Comments Patient Comments pt is drowsy; spouse in room; agreed to do stair climbing training M4 PT-IP Mobility and Gait Start: 08/25/21 12:45 Freq: NEEDED Status: Active Protocol: Document 08/26/21 13:05 AB (Rec: 08/26/21 14:48 AB [email or web address]) PT-Bed Mobility Assessment Rolling Level of Assist Standby Assistance Supine to Sit Supine to Sit Standby Assistance,1 Person Assistance,Head of Bed Elevated PT-Transfer Assessment Sit to and From Stand Sit to and from Stand Contact Guard Assistance, Minimal Assistance,1 Person Assistance,Use of Upper Extremities Equipment Transfer Assistive Device Gait Belt,Front Wheeled Walker Transfers Transfer Destination Toilet Transfer Technique ambulated using FWW Transfer Ability Level of Assist Contact Guard Assistance, Minimal Assistance,Use of Upper Extremities Comments Mobility Comments pt completed log roll supine to sit using bed rail SBA. needs time to complete task. pt requested to use the toilet . spouse was able to put safety belt on. assisted pt with sit to stand and ambulation to the toilet using FWW CGA to min A. pt continues to have slight R knee buckling during standing and ambulation but able to control. pt ambulated out of the toilet using FWW CGA to min A to the sink with spouse assisting. able to stand by the sink SBA and ambulated to the EOB using FWW CGA to min A . educated pt regarding LE quads activation and stair climbing training. Pt completed sit to stand from EOB CGA. assessed single leg stance using FWW for support and completed and able to hold for ~ 10 sec. pt ambulated to the w/c using FWW CGA to min A. assisted towards the stairs. educated pt and and spouse regarding stair climbing. pt completed up/down steps holding on to L rail with B hands and spouse assisted. pt ambulated back to the w/c using FWW CGA to min A. assisted pt back to his room. informed pt and spouse to have resting stations for pt to be able to sit for safety as pt is unable to tolerate much activity. pt is drowsy and possible due to pain meds affecting mobility. pt and spouse has no other concerns Gait Assessment Gait Gait Assistance Required: Contact Guard Assist,Minimum Assistance Distance (Feet) 15 Able to Maintain Weight Bearing Status Yes During Gait Assistive Devices Assistive Device Gait Belt,Front Wheeled Walker Orthotic/Prosthetic Devices or Brace: No Gait Deviations General Gait Pattern Antalgic,Decreased Stride Length,Decreased Feet Clearance,Wide Based Gait Factors Limiting Gait Function Factors Limiting Gait Function Decreased Activity Tolerance, Decreased Strength,Difficulty Following Directions,Limited Range of Motion,Pain,Poor Balance,Poor Safety Awareness Stair Climbing Assessment Evaluation Level of Assist On Stairs Minimal Assistance Devices Stair Climbing Assistive Devices Left Railing Technique/Endurance Stair Climbing Direction Ascend and Descend Stair Climbing Technique Step to Step Number of Steps Climbed 3 Stair Climbing Set # Repetitions (reps) 1 M5 PT-IP Objective Assessments Start: 08/25/21 12:45 Freq: NEEDED Status: Active Protocol: Document 08/25/21 10:00 AB (Rec: 08/25/21 13:01 AB [id number]) Orientation Orientation/Cognition Level of Alertness Alert Orientation Name,Age,Birthday,Month,Date, Year,Day of Week,Place, Situation Language Function Ability No Deficits Noted Safety Awareness Understands Safety Issues Memory Description No Deficits Noted Gross Range of Motion Lower Extremity ROM Assessment Within Functional Limits Strength Lower Extremity Strength Assessment Bilaterally Impaired Hip 3+/5 Knee 3+/5 Comments Strength Comments pain limiting LE mobility affecting MMT Coordination Assessment Gross Coordination Gross Coordination WNL Sensation Assessment Sensation Sensation Description Numbness Comments Sensation Comments stated slight quads numbness on B Muscle Tone Muscle Tone WNL Yes M6 PT-IP Treatment Start: 08/25/21 12:45 Freq: NEEDED Status: Active Protocol: Document 08/26/21 13:05 AB (Rec: 08/26/21 14:48 AB [id number]) Physical Therapy Treatment Education Education Provided Safety M7 PT-IP Assessment and Plan Start: 08/25/21 12:45 Freq: NEEDED Status: Active Protocol: Document 08/26/21 13:05 AB (Rec: 08/26/21 14:48 AB [id number]) PT Summary Assessment and Plan Potential Rehabilitation Potential Good Summary Impairments Pain,ROM,Strength,Balance, Coordination,Sensation,Tone, Cognition,Bed Mobility, Transfers,Gait,Activity Tolerance Progress Towards Goals Slow Progress due to Pain Assessment Summary caregiver training conducted and spouse was able to assist pt with toilet transfers, ambulation and stair climbing. pt plans to go home today. pt will benefit from HHPT. Goals Bed Mobility Goal Standby Assistance Transfer Goal Standby Assistance,Front Wheeled Walker Gait Goal Standby Assistance,Front Wheel Walker Gait Distance 200 Other Goals up/down 3 steps L rail ascending SBA Days to Meet Goals 10 Frequency of Treatment Frequency Of Treatment Twice a Day Treatment Plan Physical Therapy Treatment Plan Bed Mobility Training,Transfer Training,Gait Training, Therapeutic Exercise,Balance Retraining,Post Op Education, Discharge Planning,Hot or Cold Pack,Neuromuscular Re-ed, Coordination Retraining,Manual Therapy Precautions Lumbar Precautions Log Roll,No Twisting,Limit Bending,Lifting Restriction of 10 lbs,Gait Belt above Incisional Area Recommendations To Nursing Amount of Assist Needed 1 Person Assist Discharge Recommendations PT Discharge Recommendations Home with 15/04 Assist Available,Home Health Transportation Needs at Discharge Private Vehicle
[2021-08-26] MEDS: IPRATROPIUM 0.5 MG/2.5 ML NEB INH ×2 (15:09→18:22)
--- NOTE | 2021-08-26 15:27 | PC.NURSE ---
Patient worked on the stairs with physical therapy, patient was sitting in wheelchair and couldn't keep eyes open, patient states I dont feel good and cant stay awake. BP checked while sitting in wheelchair, 88/54. Patient assisted to lie down in bed. Aguila YO called and notified. Patients lisinopril was held this morning. Aguila Portillo states, just keep checking the blood pressures and cancel the discharge. Also IV was removed and order to keep out was taken.PAtient is drinking PO fluids and voiding without difficulty.
--- NOTE | 2021-08-26 15:47 | CM.DPC ---
DCP Cont: Confirmed with nurse, Lisa, that patient is not being discharged secondary to decrease in blood pressures. Home is still the plan at this time. P: DCP to continue to follow and check in for any needs. Damari Johnson RN/Statistical Assistant
[2021-08-26 16:52] LABS: Add Manual Diff / Slide Review NO; Basophils Absolute Auto 100 /uL (0-100); Eosinophils Absolute Auto 100 /uL (0-450); Eosinophils Percent Auto 0.9 % (2-4); Hematocrit 32.8 % (41-53); Lymphocytes Absolute Auto 1200 /uL (1100-4500); Lymphocytes Percent Auto 17.1 % (25-40); Mean Corpuscular HGB Conc 33.7 % (30-36); Mean Corpuscular Hemoglobin 31.8 PG (26-34); Mean Corpuscular Volume 94.5 fL (80-100); Monocytes Absolute Auto 700 /uL (0-900); Monocytes Percent Auto 10.2 % (3-14); Neutrophils Absolute Auto 4800 /uL (1500-7000); Neutrophils Percent Auto 70.8 % (50-75); Platelet Count 152 X10^3/uL (150-400); Red Blood Cell Count 3.47 X10^6/uL (4.5-5.9); Red Cell Distribution Width 13.1 % (11.6-14.8); White Blood Cell Count 6.7 X10^3/uL (4.5-11.0)
[2021-08-26] MEDS: MAGNESIUM HYDROXIDE 30 ML UDC PO (17:01)
[2021-08-26] MEDS: ATORVASTATIN 20 MG TABLET PO (21:01)
[2021-08-26] MEDS: SENNOSIDES 8.6 MG TABLET 17.2 MG PO (21:02)
[2021-08-26] MEDS: ACETAMINOPHEN 325 MG TABLET 650 MG PO (23:55)
[2021-08-27] MEDS: hydrOXYzine pamoate 25 MG CAPSULE PO (03:01)
[2021-08-27] MEDS: OXYCODONE IR 5 MG TABLET 10 MG PO ×2 (03:02→06:34)
[2021-08-27 06:00] VITALS: BP 113/89; PULSE 87; RESP 18; TEMP 36.8; O2SAT 97
[2021-08-27] MEDS: ACETAMINOPHEN 325 MG TABLET 650 MG PO (06:34)
[2021-08-27] MEDS: PANTOPRAZOLE DR 40 MG TABLET PO (06:35)
--- NOTE | 2021-08-27 07:20 | PM.PNPO.1 ---
Subjective Subjective Date Patient Seen: 08/27/21 Time Patient Seen: 07:20 Interval history: Patient status post lumbar surgery. Patient is doing very well this morning. Was set up to be discharged yesterday but had an episode of hypotension and discharge was held. Patient is doing very well today and had no additional episodes or issues yesterday or overnight. Exam Vital Signs (past 8 hours): - 08/27/21 06:00 Temperature 98.2 F Pulse Rate 87 Respiratory Rate 18 Blood Pressure 113/89 Pulse Oximetry 97 Oxygen Delivery Method Room Air Oxygen Flow Rate 0 Narrative Exam Narrative: Dressings clean and dry. Normal range of motion the foot and ankle. Positive dorsiflexion and plantar flexion. Palpable pedal pulses. Nontender to palpation to the posterior aspect of the calf. Objective Labs Result Diagrams: 08/26/21 16:40 Labs: Laboratory Results - last 24 hr 08/26/21 16:40 WBC 6.7 RBC 3.47 L Hgb 11.0 L Hct 32.8 L MCV 94.5 MCH 31.8 MCHC 33.7 RDW 13.1 Plt Count 152 Neut % (Auto) 70.8 Lymph % (Auto) 17.1 L [place] % (Auto) 10.2 Eos % (Auto) 0.9 L Baso % (Auto) 1.0 Neut # (Auto) 4800 Lymph # (Auto) 1200 [place] # (Auto) 700 Eos # (Auto) 100 Baso # (Auto) 100 PFSH Medical History Arthritis Arthritis of left acromioclavicular joint Cardiomyopathy Chronic low back pain Chronic prostatitis COPD (chronic obstructive pulmonary disease) Cough Discoid lupus Fibromyalgia Former smoker GERD (gastroesophageal reflux disease) HTN (hypertension) Impingement syndrome, shoulder, left Labral tear of left hip joint Lumbar disc disease Lung cancer (12/2016) Neuropathy Osteoarthropathy PAF (paroxysmal atrial fibrillation) (2008) Partial tear of left rotator cuff Pulmonary emphysema Retinopathy RLS (restless legs syndrome) Rosacea Spinal stenosis Subacute cutaneous lupus erythematosus Surgical History History of ankle surgery (1994) History of arthroscopy of left shoulder (11/24/20) History of bilateral carpal tunnel release (2017) History of colonoscopy History of lobectomy of lung (12/2016) History of lumbar fusion (2008) History of surgery (1985) History of surgery (2002) History of surgery (2016) Hx of cervical discectomy (03/03/20) Hx of elbow surgery (2009) Hx of fusion of cervical spine (03/16/20) Hx of hand surgery Hx of laminectomy (1981) Hx of LASIK (2000) Social History household members: spouse Smoking Status: Former smoker alcohol intake: current Assessment & Plan Post-op Postoperative Procedures: Procedures Operation Date: 08/24/21 07:45 Actual Procedure Side Surgeon p L2-3, L3-4 TLIF, L4-5 lumbar HWR, exploration of fusion, repeat laminectomy, reinsertion of hardware- Robot Chanel Haywood MD Postoperative plan narrative: Patient to be discharged home today. Quality VTE Deep Vein Thrombosis/Pulmonary Embolism Present on Admission: No
[2021-08-27 07:55] VITALS: PULSE 82; RESP 16; O2SAT 93
[2021-08-27] MEDS: IPRATROPIUM 0.5 MG/2.5 ML NEB INH (07:55)
[2021-08-27] MEDS: azaTHIOprine 50 MG TABLET 150 MG PO (08:28)
[2021-08-27] MEDS: predniSONE 5 MG TABLET PO (08:28)
[2021-08-27] MEDS: HYDROXYCHLOROQUINE 200 MG TABLET 400 MG PO (08:28)
[2021-08-27] MEDS: MULTIVITAMIN 1 TABLET 1 TAB PO (08:28)
[2021-08-27] MEDS: FISH OIL 1,000 MG CAPSULE 1000 MG PO (08:28)
[2021-08-27] MEDS: DOCUSATE 100 MG CAPSULE PO (08:28)
--- NOTE | 2021-08-27 08:40 | PC.NURSE ---
Patient up ambulating in room and to bathroom, gait steady,denies dizziness. Went over dc instructions with patient and patients spouse, questions answered. Patient taken via wc to vehicle driven by spouse, patient had all belongings.
[2021-08-27 08:47] VITALS: BP 117/72; PULSE 90; RESP 19; TEMP 36.9; O2SAT 94
== END 2021-08-27 08:48 | disposition home or self-care (01) | DRG 454 ==
PROVIDERS: Physician Assistant Medical; Admitting Provider Orthopaedic Surgery Orthopaedic Surgery of the Spine; PCP Family Medicine; Referring Provider Physical Medicine & Rehabilitation; Visit Provider Orthopaedic Surgery Orthopaedic Surgery of the Spine
PROC: 0SG10AJ Fusion of 2 or more Lumbar Vertebral Joints with Interbody Fusion Device, Posterior Approach, Anterior Column, Open Approach (ICD-10-PCS; principal; 2021-08-24 07:45)
DX: M48.062 Spinal stenosis, lumbar region with neurogenic claudication (principal); M96.0 Pseudarthrosis after fusion or arthrodesis; M43.16 Spondylolisthesis, lumbar region; M96.1 Postlaminectomy syndrome, not elsewhere classified; R11.2 Nausea with vomiting, unspecified; J44.9 Chronic obstructive pulmonary disease, unspecified; L93.0 Discoid lupus erythematosus; I10 Essential (primary) hypertension; K21.9 Gastro-esophageal reflux disease without esophagitis; I95.9 Hypotension, unspecified; Z98.1 Arthrodesis status; Z20.822 Contact with and (suspected) exposure to COVID-19; Z87.891 Personal history of nicotine dependence
CPT/HCPCS: 36415; 72100; 76000; 82962; 85014; 85018; 85025; 94640; 97116; 97162; 97165; 97530; 97535; C1776; A9270; C9290; J0131; J0171; J0330; J0690; J1100; J1170; J2060; J2250; J2405; J2704; J3010; J7500

== ENCOUNTER → 2022-04-16 14:01 | Outpatient (CLI) | payer OTHER, SELFPAY ==
[2021-08-24 15:46] VITALS: BMI 34.0
[2022-04-16 14:37] LABS: COVID19 -Nasal RAPID Negative (Negative)
== END ==
PROVIDERS: PCP Family Medicine; Referring Provider Orthopaedic Surgery; Visit Provider Orthopaedic Surgery
DX: Z20.822 Contact with and (suspected) exposure to COVID-19 (principal); Z11.59 Encounter for screening for other viral diseases
CPT/HCPCS: 87635; C9803

== ENCOUNTER 2022-04-19 09:59 | Day surgery (SDC) | payer OTHER, SELFPAY ==
[2021-08-24 15:46] VITALS: BMI 34.0
[2022-04-09 12:06] VITALS: BMI 33.5
[2022-04-09 13:36] VITALS: BMI 33.5
[2022-04-19] VITALS (9 sets, daily range): BP systolic 119–141; BP diastolic 71–88; PULSE 74–86; RESP 13–93; TEMP 36.3–36.6; O2SAT 20–96; BMI 33.5
[2022-04-19] MEDS: LACTATED RINGERS 1,000 ML 42 ML IV (11:08)
--- NOTE | 2022-04-19 11:27 | PM.PREOP ---
Pre-operative Note Interval Note History & Physical reviewed/Exam performed by Physician: Yes Changes to H&P: No
--- NOTE | 2022-04-19 11:31 | PM.HP.1 ---
History of Present Illness History of Present Illness Date Patient Seen: 04/19/22 Time Patient Seen: 11:15 Chief complaint: Left Arthroscopy Shoulder rotator cuff repair Narrative: 56-year-old gentleman with about a year long history of left shoulder pain. Patient has had previous surgery to the left shoulder which she was doing well with. Patient underwent spinal surgery and was using crutches for quite a period of time due to difficulty with mobilization patient relies on his arms to help bring him up from a laying or sitting position to standing. Over time cause a reaggravation of his left shoulder. Patient has been continuing to have problems despite conservative treatment. Patient History Medical History Arthritis Arthritis of left acromioclavicular joint Cardiomyopathy Chronic low back pain Chronic prostatitis COPD (chronic obstructive pulmonary disease) Cough Discoid lupus Diverticulitis Fibromyalgia Former smoker GERD (gastroesophageal reflux disease) HTN (hypertension) Impingement syndrome, shoulder, left Labral tear of left hip joint Lumbar disc disease Lung cancer (12/2016) Neuropathy Osteoarthropathy PAF (paroxysmal atrial fibrillation) (2008) Partial tear of left rotator cuff Pulmonary emphysema Retinopathy RLS (restless legs syndrome) Rosacea Spinal stenosis Subacute cutaneous lupus erythematosus Surgical History History of ankle surgery (1994) History of arthroscopy of left shoulder (11/24/20) History of bilateral carpal tunnel release (2017) History of colonoscopy History of lobectomy of lung (12/2016) History of lumbar fusion (2008) History of lumbar spinal fusion (08/24/21) History of surgery (1985) History of surgery (2002) History of surgery (2016) Hx of cervical discectomy (03/03/20) Hx of elbow surgery (2009) Hx of fusion of cervical spine (03/16/20) Hx of hand surgery Hx of hernia repair (09/18/21) Hx of laminectomy (1981) Hx of LASIK (2000) Family & Social History Social History: household members spouse Prior Living Arrangements House Tobacco & Substance use: Tobacco type cigarettes Smoking Status Former smoker alcohol intake current alcohol intake frequency a few times a week Substance Use Type does not use Meds Home Medications and Allergies Home Medications Medication Instructions Recorded Confirmed Type azathioprine 50 mg tablet (Imuran) 150 mg PO DAILY 02/29/20 04/19/22 History carvedilol 25 mg tablet 25 mg PO BID 02/29/20 04/19/22 History lisinopril 5 mg tablet 5 mg PO BID 02/29/20 04/19/22 History multivitamin 1 cap PO DAILY Lupus 02/29/20 04/19/22 History omega [id number]-nam-lpq-fish oil 1,000 mg 1 cap PO DAILY Lupus 02/29/20 04/19/22 History (120 mg-180 mg) capsule (Fish Oil) omeprazole 40 mg capsule,delayed 40 mg PO DAILY 02/29/20 04/19/22 History release prednisone 5 mg tablet 5 mg PO DAILY 02/29/20 04/19/22 History tiotropium bromide 2.5 1 puff inhalation BID 02/29/20 04/19/22 History mcg/actuation mist for inhalation (Spiriva Respimat) furosemide 20 mg tablet 20 mg PO QAM 03/03/20 04/19/22 History desonide 0.05 % topical cream 1 applic topical QD-BID PRN Itching 11/24/20 04/19/22 History atorvastatin 20 mg tablet 20 mg PO BEDTIME 08/22/21 04/19/22 History acetaminophen 325 mg tablet 650 mg PO Q6HR PRN Pain, Mild 08/26/21 04/19/22 Rx (1-3) #60 tabs albuterol sulfate 90 mcg/actuation 2 puff inhalation Q4-6H PRN 04/09/22 04/19/22 History aerosol inhaler Shortness Of Breath sulfasalazine 500 mg tablet 500 mg PO BID 04/09/22 04/19/22 History Allergies Allergy/AdvReac Type Severity Reaction Status Date / Time codeine AdvReac Severe Nausea Verified 04/19/22 10:32 gabapentin AdvReac Severe Double Verified 04/19/22 10:32 vision Exam Vital Signs (past 8 hours): - 04/19/22 10:25 Temperature 98 F Pulse Rate 74 Respiratory Rate 16 Blood Pressure 129/88 Pulse Oximetry 94 Oxygen Delivery Method Room Air Oxygen Delivery Method Room Air Narrative Exam Narrative: On physical exam, no swelling or deformities to the shoulder. Patient has no sign of any stiffness or contractures. Does have quite a bit of pain with both active as well as passive range of motion. Difficulty going beyond 90? of forward flexion as well as abduction but can be passively fully ranged. Does have normal external rotation with the arm at the side but internal rotation is limited to the small of the back. Does have some decreased internal rotation passively as well. Pain and weakness with supraspinatus strength testing. Normal strength in infraspinatus and subscapularis. Positive impingement signs. No sign of any glenohumeral joint crepitus or instability. Assessment & Plan Assessment & Plan narrative: 56-year-old gentleman with continued pain and discomfort to the left shoulder despite conservative treatment. Patient had a MRI showing some partial tearing to the rotator cuff as well as the proximal biceps but looked to be relatively mild. Signs of increased fluid in the subacromial and the subdeltoid space. No sign of any significant glenohumeral joint arthritis. Due to these findings, patient is interested in surgery to address the left shoulder. This would involve a left arthroscopic procedure to address the rotator cuff as well as signs of impingement. All of his questions and concerns were answered to his full satisfaction and consent form has been freely obtained. The risk, benefits, alternatives, possible complications, operative course, and postop outcomes were discussed. Complications including but not limiting to bleeding, infection, fracture, nerve injury, continued pain postoperatively or instability postoperatively were discussed in detail. Medical complications including but not limited to deep venous thrombosis event, anesthesia complications with excessive bleeding, vascular events or cardiac events and other possible complications were discussed in detail. Need for postoperative rehabilitation and anticipated hospital stay and clinical course were discussed in detail. Patient acknowledges understanding and elects to proceed with surgery. Time Spent With Patient Critical Care time: I spent a total of [] minutes of critical care time on this patient's care today; this time is exclusive of procedural time.
[2022-04-19] MEDS: CEFAZOLIN 2 GM/20 ML SYRINGE IV (12:46)
[2022-04-19] MEDS: BUPIVACAINE 0.5% W/ EPI (PF) 30 ML VIAL INJ (13:11)
[2022-04-19] MEDS: EPINEPHrine 1 MG/ML IRR (13:16)
--- NOTE | 2022-04-19 13:41 | P.OP_ITS ---
Operative Date/Time/Diagnoses Date of procedure: 04/19/22 Time of procedure: 12:30 Pre-op diagnosis: Left shoulder partial rotator cuff tear as well as partial proximal biceps tear Post-op diagnosis: same Procedure & Clinicians Procedure: Left shoulder arthroscopic subacromial decompression distal clavicle excision as well as extensive debridement of the glenohumeral joint, labral tissue, biceps, and partial rotator cuff tear Same procedure as scheduled: Yes Indications: Patient with persistent left shoulder pain unresponsive to conservative treatment with MRI findings of some partial tearing involving the rotator cuff in the proximal biceps. Surgeon: Gino Mercado [employer] Analyst: Aguila Portillo Anesthesia Type: General and Peripheral nerve block Operative Notes Findings: No sign of any significant arthritic changes to the glenohumeral joint. Patient has some degenerative changes throughout the labrum but no sign of any significant SLAP tears or Bank[place] tears. Patient had some mild tearing to the proximal biceps but no sign of any high-grade partial tears or significant tenosynovitis. Patient also had some mild partial tearing to both the articular and bursal aspect of the rotator cuff but once again no sign of any high-grade partial tears or full-thickness tears. Signs of some AC joint arthritis as well as synovitis and bursitis in the subacromial and subdeltoid space. No sign of any loose bodies in the glenohumeral joint. Closure Type: primary Estimated Blood Loss (mL): 5 Procedure in detail: On date of service, Patient was met in the holding area. The operative site was signed and witnessed by the OR staff. The surgeries once again discussed with the patient and any remaining questions they had were answered fully. Patient was taken back to the operating theater and placed on the operating table in a supine position. Great care was taken to ensure that all bony prominences were properly padded. Patient was then placed into the beach chair position. The head and neck were properly positioned and secured. A timeout was performed verifying patient's name, procedure, and the operative site. The upper extremity was then prepped and draped in the normal sterile fashion. Previously, the bony anatomy and portal sites were marked out as well as injected with Marcaine with epinephrine. An 11 blade was used to make an incision in the posterior aspect of the shoulder. The camera was placed, and a diagnostic shoulder scope was performed. Findings listed above. Next under direct visualization, a anterior portal was made. Shaver was placed into the anterior portal and a extensive debridement of the glenohumeral joint was performed. Shaver was used to debride the articular aspect of the rotator cuff. Patient had some partial tearing to the biceps tendon that was also debrided using the shaver. As mentioned above, patient has some degenerative changes to the labrum which was also debrided using the shaver as well as any synovitis in the glenohumeral joint. There was no sign of any high-grade partial tears to the articular aspect of the rotator cuff or the proximal biceps. Next the camera was placed into the subacromial space. A lateral portal was obtained under direct visualization. A combination of the shaver and vapor wand, a debridement of the inflamed tissue as well as inflamed bursa was performed. The lateral gutter was also cleaned out. This gave us good visualization of the bursal aspect of the rotator cuff as well as the acromial arch. There was an obvious impingement lesion in the acromial arch. Shaver was used to debride the subacromial and subdeltoid space. As well as debride the partial tearing to the bursal aspect of the rotator cuff. Next we turned our attention to the subacromial decompression. Next, a roly was then used to do a subacromial decompression. This allowed us to convert the acromion to a type I acromial. This also allowed us to shave down the bony lesion in the acromial space. The rasp was placed into the lateral portal as well as the anterior portal in order to do a complete subacromial decompression. We next turned our attention to the distal clavicle. Using the shaver and the vapor wand we were able to clean out all the soft tissue around the distal clavicle as well as into the a.c. joint. This gave us good visualization of the arthritic changes to the distal clavicle as well as good visualization of the inferior osteophytes coming off the distal clavicle. Using the roly in the anterior portal, we were able to remove the inferior osteophytes as well as do a distal clavicle excision removing 3-4 mm of bone. The camera was then placed into the anterior portal which gave us a direct visualization of the a.c. joint allowing us to assess the distal clavicle excision. We then turned our attention to the rotator cuff tear. Shaver was used to debride once again any fraying or partial tearing to the superior portion of the rotator cuff. Also used to remove any remaining synovitis and inflamed bursal tissue. The shoulder was then taken through range of motion and there was no sign of any additional impingement. Next, the suprascapular nerve was blocked. Patient's shoulder was then cleaned dried and dressed and patient was taken to the PACU in stable condition. Complications: none Post-operative Condition: stable Disposition: PACU Plan for aftercare: Plan a follow-up postoperative protocol for subacromial decompression with distal clavicle excision. Sling will just be for comfort.
== END 2022-04-19 14:54 | disposition home or self-care (01) ==
PROVIDERS: PCP Family Medicine; Referring Provider Orthopaedic Surgery; Visit Provider Orthopaedic Surgery
PROC: (CPT 29827; principal; 2022-04-19 11:15)
DX: M75.112 Incomplete rotator cuff tear or rupture of left shoulder, not specified as traumatic (principal); M75.52 Bursitis of left shoulder; S46.212A Strain of muscle, fascia and tendon of other parts of biceps, left arm, initial encounter; M19.012 Primary osteoarthritis, left shoulder; M25.712 Osteophyte, left shoulder; J44.9 Chronic obstructive pulmonary disease, unspecified; I10 Essential (primary) hypertension; K21.9 Gastro-esophageal reflux disease without esophagitis; L93.0 Discoid lupus erythematosus; M79.7 Fibromyalgia
CPT/HCPCS: 29823; 29824; 29826; J0171; J0330; J0690; J1100; J2250; J2405; J2704; J3010

== ENCOUNTER 2024-06-25 09:52 | Day surgery (SDC) | payer OTHER, SELFPAY ==
[2021-08-24 15:46] VITALS: BMI 34.0
[2024-06-19 13:58] VITALS: BMI 31.4
[2024-06-25] VITALS (8 sets, daily range): BP systolic 131–149; BP diastolic 76–109; PULSE 66–81; RESP 13–20; TEMP 36.1–36.7; O2SAT 84–96; BMI 32.1
--- NOTE | 2024-06-25 | DI.RAD.S_ITS ---
PROCEDURE: XR SHOULDER RT 1V INDICATIONS: post op right shoulder TECHNIQUE: One-view of the shoulder acquired. COMPARISON: [facility] [place], [place], XR SHOULDER 2+ VIEWS BILATERAL, 04/08/2024, 14:19. FINDINGS: Bones: No acute fractures or dislocations. No suspicious bony lesions. Visualized ribs appear intact. Soft tissues: No suspicious soft tissue calcifications. IMPRESSION: Stable postoperative alignment. Approved by: Alex Mccullough M.D. on 06/25/2024 at 21:35
--- NOTE | 2024-06-25 10:28 | PM.PREOP ---
Pre-operative Note Interval Note History & Physical reviewed/Exam performed by Physician: Yes Changes to H&P: No
[2024-06-25] MEDS: ACETAMINOPHEN 325 MG TABLET 975 MG PO (10:57)
[2024-06-25] MEDS: LACTATED RINGERS 1,000 ML 42 ML IV ×2 (10:58→12:32)
[2024-06-25] MEDS: CEFAZOLIN 2 GM/100 ML PREMIX 100 ML IV (11:45)
--- NOTE | 2024-06-25 11:52 | SUR.OPER ---
Beach chair with Gabo/Geronimo shoulder positioner. Lower body on padded OR bed. Head in foam padded head cradle, secured with straps. Non-operative arm secured <90 degrees abduction. Pillow under knees. Safety belt at thigh. Cloth tape over blanket over lower legs.
[2024-06-25] MEDS: BUPIVACAINE 0.25% (PF) 30 ML, EPINEPHrine 0.15 MG INJ (12:21)
[2024-06-25] MEDS: hydrOXYzine 50 MG/ML INJ 25 MG IM (14:09)
[2024-06-25] MEDS: OXYCODONE IR 5 MG TABLET PO ×2 (14:12→14:41)
[2024-06-25] MEDS: ONDANSETRON 4 MG/2 ML INJ IV (14:42)
--- NOTE | 2024-06-25 17:03 | P.OP_ITS ---
Operative Date/Time/Diagnoses Date of procedure: 06/25/24 Time of procedure: 17:03 Pre-op diagnosis: Right subscap tear Post-op diagnosis: same Procedure & Clinicians Procedure: Right open subscapularis repair with biceps tenodesis Same procedure as scheduled: Yes Indications: Indications: This is a 58-year-old male who has a known large retracted subscapularis tear. Patient has failed a reasonable attempt at conservative therapy. After extensive discussion in clinic, they wished to go forward with surgery. Risks and benefits were described including the risk of infection, bleeding, damage to internal structures including nerves. We also discussed the risk of failure of surgery and the need for revision surgery as well as the risk of anesthesia. The patient expressed understanding with these risks and wished to go forward with surgery. Surgeon: Harry Escobedo Compilation Clerk: Eva Ramey Anesthesia Type: General Operative Notes Findings: Findings: Full-thickness subscapularis tear as noted on direct visualization and preoperative imaging Closure Type: primary Specimen(s): none sent Prosthetic devices, grafts, tissues, transplants, or devices: Implants None Estimated Blood Loss (mL): 100 Blood products transfused: none Procedure in detail: Patient was seen in the preoperative holding unit. The correct right shoulder was identified and marked with my initials. Again we discussed the risks and benefits of surgery and they wished to go forward with surgery. The patient was brought back to the operating room and placed supine on the operating table. Smooth endotracheal intubation was performed by anesthesia. All prominences were padded and they were placed into the beach chair position. Intravenous antibiotics were given. The right shoulder was then prepped with the standard sterile preparation and draping. A time-out was then performed in my initials were again identified on the correct shoulder. 1 g of IV tranexamic acid was given. A standard deltopectoral incision was made. Skin flaps were made. The cephalic vein was identified and retracted laterally. This was protected throughout the remainder of the case. Sharp dissection was made along the deltoid, subacromial and subcoracoid space to release adhesions. The conjoined tendon was identified and the axillary nerve was also identified and protected. There was a full- thickness tear of the subscapularis extending distally. This was freed of its adhesions. Three all suture medial row anchors were placed. They were then passed through the subscapularis tendon and tied into knotless lateral row anchors for a double row trans osseous equivalent repair. The knotless mechanism of both of the lateral row anchors were used to suture in the biceps tendon for an in-situ tenodesis. The wounds were then irrigated thoroughly and closed with 2-0 Vicryl and Monocryl. Patient was placed into a sling afterwards. Assisting participation: This operation could not have been safely performed (without compromising the technical results or length of the procedure) without the assistance of a skilled instructor adjunct surgical technician. The instructor adjunct surgical technician was medically necessary for proper positioning, retraction and manipulation of instruments, proper exposure, graft prep, and manipulation of tissue. Complications: none Post-operative Condition: stable Disposition: PACU Plan for aftercare: Postoperative instructions: Sling to remain on for 6 weeks. No external rotation past neutral for 6 weeks. Okay for the sling to come off for shower. Okay to shower over the Aquacel dressing. If any water gets underneath the dressing, remove the dressing. First postoperative visit in 2 weeks.
== END 2024-06-25 15:19 | disposition home or self-care (01) ==
PROVIDERS: PCP Family Medicine; Referring Provider Orthopaedic Surgery; Visit Provider Orthopaedic Surgery
PROC: (CPT 23410; principal; 2024-06-25 12:15)
DX: S46.011A Strain of muscle(s) and tendon(s) of the rotator cuff of right shoulder, initial encounter (principal); M75.21 Bicipital tendinitis, right shoulder
CPT/HCPCS: 23410; 73020; J0171; J0330; J0690; J1100; J1170; J2405; J2704; J3010; J3410